=== PATIENT | male | born 1975 | race Caucasian/White ===

== ENCOUNTER 2017-09-01 12:20 | Inpatient (IN) | payer OTHER ==
[2017-09-01 13:59] VITALS: BMI 19.5
--- NOTE | 2017-09-01 18:45 | HP ---
CIWA Score - CIWA Score Nausea/Vomitin Muscle Tremors: 3 Anxiety: 4-Mod. Anxious/Guarded Agitation: 3 Paroxysmal Sweats: 1-Minimal Palms Moist Orientation: 0-Oriented Tacttile Disturbances: 0-None Auditory Disturbances: 0-None Visual Disturbances: 0-None Headache: 0-None Present CIWA-Ar Total Score: 13 Admission ROS BHS - HPI Chief Complaint: "I want help from alcohol" Allergies/Adverse Reactions: Allergies Allergy/AdvReac Type Severity Reaction Status Date / Time No Known Allergies Allergy Verified 09/01/17 16:39 History of Present Illness: Pt is a 42 yr old male with a long history of alcohol addiction. States he spiraled out of control in the last 3 wks following his mother's . This is pt's first experience with detox. Denies a hx of seizure. Denies any psychiatric nor medical hx. States he is sad because of his mother's but not suicidal. Denies prior or present suicidal ideation. Exam Limitations: No Limitations - Ebola screening Have you traveled outside of the country in the last 21 days: No (N) Have you had contact with anyone from an Ebola affected area: No Have you been sick,other than usual withdrawal symptoms: No Do you have a fever: No - Review of Systems Constitutional: Loss of Appetite, Unexplained wgt Loss EENT: reports: Other (R lazy eye) Respiratory: reports: Other (night time wheeze "because of smoking") Cardiac: reports: No Symptoms Reported GI: reports: Abdominal cramping (whenever "i dont drink") : reports: No Symptoms Reported Musculoskeletal: reports: Back Pain (work related) Integumentary: reports: No Symptoms Reported Neuro: reports: No Symptoms reported Endocrine: reports: No Symptoms Reported Hematology: reports: No Symptoms Reported Psychiatric: reports: Judgement Intact, Orientated x3, Agitated, Anxious, Depressed Other Systems: Reviewed and Negative Patient History - Patient Medical History Hx Anemia: No Hx Asthma: No Hx Chronic Obstructive Pulmonary Disease (COPD): No Hx Cancer: No Hx Cardiac Disorders: No Hx Congestive Heart Failure: No Hx Hypertension: No Hx Hypercholesterolemia: No Hx Pacemaker: No HX Cerebrovascular Accident: No Hx Seizures: No Hx Dementia: No Hx Diabetes: No Hx Gastrointestinal Disorders: No Hx Liver Disease: No Hx Genitourinary Disorders: No Hx Sexually Transmitted Disorders: No Hx Renal Disease (ESRD): No Hx Thyroid Disease: No Hx Human Immunodeficiency Virus (HIV): No (has never been tested; declines test) Hx Hepatitis C: No Hx Depression: No (about 3 wks) Hx Suicide Attempt: No Hx Bipolar Disorder: No Hx Schizophrenia: No - Patient Surgical History Past Surgical History: Yes Hx Appendectomy: Yes (20 yrs ago) - PPD History Previous Implant?: No PPD to be Administered?: Yes - Reproductive History Patient is a Female of Child Bearing Age (11 -55 yrs old): No - Smoking Cessation Smoking history: Current every day smoker Have you smoked in the past 12 months: Yes Aproximately how many cigarettes per day: 40 Hx Chewing Tobacco Use: No Initiated information on smoking cessation: Yes 'Breaking Loose' booklet given: 09/01/17 - Substance & Tx. History Hx Alcohol Use: Yes Hx Substance Use: Yes ( cocaine) - Substances Abused Alcohol Route: Oral Frequency: Daily Amount used: Beer - 2 (6) pks, Rum 2 pints Age of first use: 27 Date of Last Use: 09/01/17 Cocaine Route: Smoking Frequency: 1-2 times per week Amount used: $100-200 Age of first use: 18 Date of Last Use: 08/31/17 Marijuana/Hashish Route: Smoking Frequency: Daily Amount used: 2 blunts Age of first use: 15 Date of Last Use: 08/27/17 Family Disease History - Family Disease History Family Disease History: CA: Mother ( ; Breast Ca, COPD/emphysema), Other : Father (Drug use, ), Brother (Alcoholics and substance use) Admission Physical Exam [facility] - Vital Signs Vital Signs: Vital Signs - 24 hr 09/01/17 13:56 Temperature 97 F L Pulse Rate 90 Respiratory 20 Rate Blood Pressure 162/81 - Physical General Appearance: Yes: Moderate Distress, Anxious HEENTM: Yes: Within Normal Limits Respiratory: Yes: Lungs Clear, No Respiratory Distress, No Accessory Muscle Use Neck: Yes: Within Normal Limits, No masses,lesions,Nodules, Trachea in good position Breast: Yes: Breast Exam Deferred Cardiology: Yes: Regular Rate Genitourinary: Yes: Within Normal Limits Back: Yes: Normal Inspection Musculoskeletal: Yes: full range of Motion, Gait Steady Extremities: Yes: Normal Capillary Refill Neurological: Yes: Fully Oriented, Alert Integumentary: Yes: Other (flushed) Lymphatic: Yes: Within Normal Limits - Diagnostic (1) Alcohol dependence, uncomplicated Current Visit: Yes Status: Acute (2) Cocaine dependence, uncomplicated Current Visit: Yes Status: Chronic (3) Nicotine dependence, uncomplicated Current Visit: Yes Status: Chronic (4) Dehydration Current Visit: Yes Status: Suspected (5) Cannabis dependence, uncomplicated Current Visit: Yes Status: Acute (6) Depression Current Visit: Yes Status: Acute BHS Breath Alcohol Content Breath Alcohol Content: 0.142 Urine Drug Screen - Results Drug Screen Negative: No Urine Drug Screen Results: CATARINO-Cocaine
[2017-09-01] MEDS ORDERED: chlordiazePOXIDE HCL 25 MG CAPSULE PO PRN (19:04)
[2017-09-01] MEDS ORDERED: IBUPROFEN 400 MG TABLET (FP) PO PRN (19:04)
[2017-09-01] MEDS ORDERED: hydrOXYzine PAMOATE 50 MG CAPSULE (FP) PO PRN (19:04)
[2017-09-01] MEDS ORDERED: MAGNESIUM HYDROX 2400MG/30ML ORAL SUSPENSION 30 ML CUP PO PRN (19:04)
[2017-09-01] MEDS ORDERED: MAGNESIUM CITRATE 300 ML BOTTLE PO PRN (19:04)
[2017-09-01] MEDS ORDERED: NICOTINE POLACRILEX 4 MG GUM BUC PRN (19:04)
[2017-09-01] MEDS ORDERED: LOPERAMIDE HCL 2 MG CAPSULE PO PRN (19:04)
[2017-09-01] MEDS ORDERED: guaiFENesin/D-METHORPHAN HB 10 ML UNIT-DOSE CUPS PO PRN (19:04)
[2017-09-01] MEDS ORDERED: P-EPHED 60MG/TRIPROLIDI 2.5MG TABLET PO PRN (19:04)
[2017-09-01] MEDS ORDERED: MENTHOL/PHENOL 1 EACH UD MM PRN (19:04)
[2017-09-01] MEDS ORDERED: MAG HYDROX/AL HYDROX/SIMETH 30 ML UNIT-DOSE CUP PO PRN (19:04)
[2017-09-01] MEDS ORDERED: ACETAMINOPHEN 325 MG TABLET (FP) PO PRN (19:04)
[2017-09-01] MEDS: NICOTINE 21 MG/24 HOURS TOPICAL PATCH TD SCH (19:26)
[2017-09-01 21:07] LABS: URINE APPEARANCE CLEAR; URINE BILIRUBIN NEGATIVE (<2.0 mg/dL); URINE COLOR STRAW; URINE GLUCOSE (UA) NEGATIVE (NEGATIVE); URINE KETONE NEGATIVE (NEGATIVE); URINE LEUK ESTERASE NEGATIVE (NEGATIVE); URINE NITRITE NEGATIVE (NEGATIVE); URINE PROTEIN NEGATIVE (NEGATIVE); URINE UROBILINOGEN NEGATIVE mg/dL (0.2-1.0)
[2017-09-01] MEDS: chlordiazePOXIDE HCL 25 MG CAPSULE PO SCH (22:12)
[2017-09-01] MEDS: THIAMINE HCL 100 MG TABLET (FP) PO SCH (22:12)
[2017-09-01] MEDS: MELATONIN 5 MG TABLETS PO PRN (22:13)
[2017-09-02] MEDS: chlordiazePOXIDE HCL 25 MG CAPSULE PO SCH ×4 (05:33→22:25)
[2017-09-02 09:41] LABS: HEMATOCRIT 49.7 % (35.4-49); MCH 31.8 pg (25.7-33.7); MCHC 34.2 g/dl (32.0-35.9); MEAN CELL VOLUME 93.2 fl (80-96); MEAN PLT VOLUME 8.5 fl (7.5-11.1); PLATELET COUNT 261 K/MM3 (134-434); RBC 5.34 M/mm3 (4.00-5.60); WHITE BLOOD COUNT 6.6 K/mm3 (4.0-10.0)
[2017-09-02 09:56] LABS: CHLORIDE 102 mmol/L (98-107); POTASSIUM 4.6 mmol/L (3.5-5.1); SODIUM 138 mmol/L (136-145)
[2017-09-02 10:01] LABS: ALK PHOS 78 U/L (45-117); ANION GAP 2 (8-16); BILIRUBIN,TOTAL 1.6 mg/dL (0.2-1.0); BLOOD UREA NITROGEN 10 mg/dL (7-18); CALCIUM 8.9 mg/dL (8.5-10.1); CO2 34 mmol/L (21-32); CREATININE 0.8 mg/dL (0.7-1.3); GLUCOSE,RANDOM 74 mg/dL (74-106); SGOT/AST 19 U/L (15-37); SGPT/ALT 16 U/L (12-78); TOT PROT 7.6 g/dl (6.4-8.2)
[2017-09-02] MEDS: PRENATAL VITAMINS W/ FOLIC ACID TABLET (FP) PO SCH (10:08)
[2017-09-02] MEDS: NICOTINE 21 MG/24 HOURS TOPICAL PATCH TD SCH (10:09)
--- NOTE | 2017-09-02 10:47 | EKG ---
Test Reason : Blood Pressure : / mmHG Vent. Rate : 088 BPM Atrial Rate : 088 BPM P-R Int : 144 ms QRS Dur : 090 ms QT Int : 366 ms P-R-T Axes : 076 075 055 degrees QTc Int : 442 ms NORMAL SINUS RHYTHM RIGHT ATRIAL ENLARGEMENT VOLTAGE CRITERIA FOR LEFT VENTRICULAR HYPERTROPHY ABNORMAL ECG NO PREVIOUS ECGS AVAILABLE Confirmed by SHER PEREZ MD ([id number]) on 09/02/2017 10:46:45 AM Referred By: Confirmed By:SHER PEREZ MD
--- NOTE | 2017-09-02 11:09 | PN ---
[facility] CIWA - CIWA Score Nausea/Vomitin-No Nausea/No Vomiting Muscle Tremors: 4-Moderate,w/Arms Extend Anxiety: 4-Mod. Anxious/Guarded Agitation: 4-Moderately Restless Paroxysmal Sweats: 1-Minimal Palms Moist Orientation: 0-Oriented Tacttile Disturbances: 0-None Auditory Disturbances: 0-None Visual Disturbances: 0-None Headache: 0-None Present CIWA-Ar Total Score: 13 BHS Progress Note (SOAP) Subjective: ANXIETY,SLIGHT TREMORS, ALERT O X 3. OOB AMBULATING ON THE UNIT WITH STEADY GAIT. Objective: 09/02/17 11:09 Vital Signs Temperature 96.9 F L 09/02/17 09:22 Pulse Rate 80 09/02/17 09:22 Respiratory Rate 20 09/02/17 09:22 Blood Pressure 120/80 09/02/17 09:22 O2 Sat by Pulse Oximetry (%) Laboratory Tests 09/01/17 09/02/17 09/02/17 13:13 07:00 07:00 WBC 6.6 RBC 5.34 Hgb 17.0 H Hct 49.7 H MCV 93.2 MCH 31.8 MCHC 34.2 RDW 14.0 Plt Count 261 MPV 8.5 Sodium 138 Potassium 4.6 Chloride 102 Carbon Dioxide 34 H Anion Gap 2 L BUN 10 Creatinine 0.8 Creat Clearance w eGFR > 60 Random Glucose 74 Calcium 8.9 Total Bilirubin 1.6 H AST 19 ALT 16 Alkaline Phosphatase 78 Total Protein 7.6 Albumin 4.0 Urine Color Straw Urine Appearance Clear Urine pH 6.0 Ur Specific [place] 1.003 Urine Protein Negative Urine Glucose (UA) Negative Urine Ketones Negative Urine Blood 1+ H Urine Nitrite Negative Urine Bilirubin Negative Urine Urobilinogen Negative Ur Leukocyte Esterase Negative Urine WBC (Auto) None Urine RBC (Auto) <1 RPR Titer 09/02/17 07:00 WBC RBC Hgb Hct MCV MCH MCHC RDW Plt Count MPV Sodium Potassium Chloride Carbon Dioxide Anion Gap BUN Creatinine Creat Clearance w eGFR Random Glucose Calcium Total Bilirubin AST ALT Alkaline Phosphatase Total Protein Albumin Urine Color Urine Appearance Urine pH Ur Specific [place] Urine Protein Urine Glucose (UA) Urine Ketones Urine Blood Urine Nitrite Urine Bilirubin Urine Urobilinogen Ur Leukocyte Esterase Urine WBC (Auto) Urine RBC (Auto) RPR Titer Nonreactive Assessment: 09/02/17 11:09 WITHDRAWAL SX Plan: CONTINUE DETOX
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
[2017-09-02] MEDS: MELATONIN 5 MG TABLETS PO PRN (22:24)
[2017-09-02] MEDS: THIAMINE HCL 100 MG TABLET (FP) PO SCH (22:25)
[2017-09-03] MEDS: chlordiazePOXIDE HCL 25 MG CAPSULE PO SCH ×3 (05:41→16:41)
[2017-09-03] MEDS: NICOTINE 21 MG/24 HOURS TOPICAL PATCH TD SCH (10:02)
[2017-09-03] MEDS: PRENATAL VITAMINS W/ FOLIC ACID TABLET (FP) PO SCH (10:02)
--- NOTE | 2017-09-03 15:19 | PN ---
S CIWA - CIWA Score Nausea/Vomitin-No Nausea/No Vomiting Muscle Tremors: 3 Anxiety: 4-Mod. Anxious/Guarded Agitation: 4-Moderately Restless Paroxysmal Sweats: 1-Minimal Palms Moist Orientation: 0-Oriented Tacttile Disturbances: 0-None Auditory Disturbances: 0-None Visual Disturbances: 0-None Headache: 0-None Present CIWA-Ar Total Score: 12 BHS Progress Note (SOAP) Subjective: ANXIETY,IRRITABILITY,SWEATS. PT EAGER TO PLAN FOR REHAB AFTERCARE. Objective: 09/03/17 15:17 Vital Signs Temperature 96.8 F L 09/03/17 14:02 Pulse Rate 64 09/03/17 14:02 Respiratory Rate 18 09/03/17 14:02 Blood Pressure 138/74 09/03/17 14:02 O2 Sat by Pulse Oximetry (%) Laboratory Tests 09/01/17 09/02/17 09/02/17 13:13 07:00 07:00 WBC 6.6 RBC 5.34 Hgb 17.0 H Hct 49.7 H MCV 93.2 MCH 31.8 MCHC 34.2 RDW 14.0 Plt Count 261 MPV 8.5 Sodium 138 Potassium 4.6 Chloride 102 Carbon Dioxide 34 H Anion Gap 2 L BUN 10 Creatinine 0.8 Creat Clearance w eGFR > 60 Random Glucose 74 Calcium 8.9 Total Bilirubin 1.6 H AST 19 ALT 16 Alkaline Phosphatase 78 Total Protein 7.6 Albumin 4.0 Urine Color Straw Urine Appearance Clear Urine pH 6.0 Ur Specific [place] 1.003 Urine Protein Negative Urine Glucose (UA) Negative Urine Ketones Negative Urine Blood 1+ H Urine Nitrite Negative Urine Bilirubin Negative Urine Urobilinogen Negative Ur Leukocyte Esterase Negative Urine WBC (Auto) None Urine RBC (Auto) <1 RPR Titer 09/02/17 07:00 WBC RBC Hgb Hct MCV MCH MCHC RDW Plt Count MPV Sodium Potassium Chloride Carbon Dioxide Anion Gap BUN Creatinine Creat Clearance w eGFR Random Glucose Calcium Total Bilirubin AST ALT Alkaline Phosphatase Total Protein Albumin Urine Color Urine Appearance Urine pH Ur Specific [place] Urine Protein Urine Glucose (UA) Urine Ketones Urine Blood Urine Nitrite Urine Bilirubin Urine Urobilinogen Ur Leukocyte Esterase Urine WBC (Auto) Urine RBC (Auto) RPR Titer Nonreactive Assessment: 09/03/17 15:17 WITHDRAWAL SX Plan: CONTINUE DETOX PT TO BE SEEN BY COUNSELOR TODAY
[2017-09-03] MEDS: chlordiazePOXIDE 5 MG CAPSULE PO SCH (22:30)
[2017-09-03] MEDS: THIAMINE HCL 100 MG TABLET (FP) PO SCH (22:30)
[2017-09-03] MEDS: ZOLPIDEM TARTRATE 10 MG TABLET (PARK CARE ONLY) PO PRN (22:30)
[2017-09-04] MEDS: chlordiazePOXIDE 5 MG CAPSULE PO SCH ×3 (05:26→17:28)
[2017-09-04] MEDS: PRENATAL VITAMINS W/ FOLIC ACID TABLET (FP) PO SCH (10:09)
[2017-09-04] MEDS: NICOTINE 21 MG/24 HOURS TOPICAL PATCH TD SCH (10:09)
--- NOTE | 2017-09-04 11:36 | PN ---
S Progress Note (SOAP) Subjective: ANXIETY-SLIGHT PANIC MODE,IRRITABILITY,CONCERNED ABOUT AFTERCARE. REASSURED PT A COUNSELOR WILL SEE HIM TO SET UP AFTERCARE. Objective: 09/04/17 11:35 Vital Signs Temperature 97 F L 09/04/17 09:05 Pulse Rate 76 09/04/17 09:05 Respiratory Rate 20 09/04/17 09:05 Blood Pressure 118/68 09/04/17 09:05 O2 Sat by Pulse Oximetry (%) Laboratory Last Values WBC 6.6 K/mm3 (4.0-10.0) 09/02/17 07:00 RBC 5.34 M/mm3 (4.00-5.60) 09/02/17 07:00 Hgb 17.0 GM/dL (11.7-16.9) H 09/02/17 07:00 Hct 49.7 % (35.4-49) H 09/02/17 07:00 MCV 93.2 fl (80-96) 09/02/17 07:00 MCH 31.8 pg (25.7-33.7) 09/02/17 07:00 MCHC 34.2 g/dl (32.0-35.9) 09/02/17 07:00 RDW 14.0 % (11.9-15.9) 09/02/17 07:00 Plt Count 261 K/MM3 (134-434) 09/02/17 07:00 MPV 8.5 fl (7.5-11.1) 09/02/17 07:00 Sodium 138 mmol/L (136-145) 09/02/17 07:00 Potassium 4.6 mmol/L (3.5-5.1) 09/02/17 07:00 Chloride 102 mmol/L (98-107) 09/02/17 07:00 Carbon Dioxide 34 mmol/L (21-32) H 09/02/17 07:00 Anion Gap 2 (8-16) L 09/02/17 07:00 BUN 10 mg/dL (7-18) 09/02/17 07:00 Creatinine 0.8 mg/dL (0.7-1.3) 09/02/17 07:00 Creat Clearance w eGFR > 60 (>60) 09/02/17 07:00 Random Glucose 74 mg/dL (74-106) 09/02/17 07:00 Calcium 8.9 mg/dL (8.5-10.1) 09/02/17 07:00 Total Bilirubin 1.6 mg/dL (0.2-1.0) H 09/02/17 07:00 AST 19 U/L (15-37) 09/02/17 07:00 ALT 16 U/L (12-78) 09/02/17 07:00 Alkaline Phosphatase 78 U/L (45-117) 09/02/17 07:00 Total Protein 7.6 g/dl (6.4-8.2) 09/02/17 07:00 Albumin 4.0 g/dl (3.4-5.0) 09/02/17 07:00 Urine Color Straw 09/01/17 13:13 Urine Appearance Clear 09/01/17 13:13 Urine pH 6.0 (5.0-8.0) 09/01/17 13:13 Ur Specific [place] 1.003 (1.001-1.035) 09/01/17 13:13 Urine Protein Negative (NEGATIVE) 09/01/17 13:13 Urine Glucose (UA) Negative (NEGATIVE) 09/01/17 13:13 Urine Ketones Negative (NEGATIVE) 09/01/17 13:13 Urine Blood 1+ (NEGATIVE) H 09/01/17 13:13 Urine Nitrite Negative (NEGATIVE) 09/01/17 13:13 Urine Bilirubin Negative (<2.0 mg/dL) 09/01/17 13:13 Urine Urobilinogen Negative mg/dL (0.2-1.0) 09/01/17 13:13 Ur Leukocyte Esterase Negative (NEGATIVE) 09/01/17 13:13 Urine WBC (Auto) None /hpf (3-5) 09/01/17 13:13 Urine RBC (Auto) <1 /hpf (0-3) 09/01/17 13:13 RPR Titer Nonreactive (NONREACTIVE) 09/02/17 07:00 Assessment: 09/04/17 11:36 WITHDRAWAL SX Plan: CONTINUE DETOX F/U WITH COUNSELOR TODAY.
[2017-09-04] MEDS: chlordiazePOXIDE HCL 10 MG CAPSULE PO SCH (22:33)
[2017-09-04] MEDS: ZOLPIDEM TARTRATE 10 MG TABLET (PARK CARE ONLY) PO PRN (22:33)
[2017-09-04] MEDS: THIAMINE HCL 100 MG TABLET (FP) PO SCH (22:33)
[2017-09-05] MEDS: chlordiazePOXIDE HCL 10 MG CAPSULE PO SCH (06:46)
[2017-09-05 09:22] VITALS: BP 116/82; PULSE 74; TEMP 98.4
--- NOTE | 2017-09-05 09:34 | PN ---
[facility] Progress Note (SOAP) Subjective: DETOX COMPLETED. ALERT O X 3. NAD. PT REPORTS HIS RECEIVES PRIMARY CARE AT [facility] NEEDED. PT MET WITH COUNSELOR DESTINEY LOYD THIS MORNING TO ADDRESS AFTERCARE FOLLOW UP. Objective: 09/05/17 09:32 Vital Signs Temperature 98.4 F 09/05/17 09:21 Pulse Rate 74 09/05/17 09:21 Respiratory Rate 16 09/05/17 09:21 Blood Pressure 116/82 09/05/17 09:21 O2 Sat by Pulse Oximetry (%) Laboratory Last Values WBC 6.6 K/mm3 (4.0-10.0) 09/02/17 07:00 RBC 5.34 M/mm3 (4.00-5.60) 09/02/17 07:00 Hgb 17.0 GM/dL (11.7-16.9) H 09/02/17 07:00 Hct 49.7 % (35.4-49) H 09/02/17 07:00 MCV 93.2 fl (80-96) 09/02/17 07:00 MCH 31.8 pg (25.7-33.7) 09/02/17 07:00 MCHC 34.2 g/dl (32.0-35.9) 09/02/17 07:00 RDW 14.0 % (11.9-15.9) 09/02/17 07:00 Plt Count 261 K/MM3 (134-434) 09/02/17 07:00 MPV 8.5 fl (7.5-11.1) 09/02/17 07:00 Sodium 138 mmol/L (136-145) 09/02/17 07:00 Potassium 4.6 mmol/L (3.5-5.1) 09/02/17 07:00 Chloride 102 mmol/L (98-107) 09/02/17 07:00 Carbon Dioxide 34 mmol/L (21-32) H 09/02/17 07:00 Anion Gap 2 (8-16) L 09/02/17 07:00 BUN 10 mg/dL (7-18) 09/02/17 07:00 Creatinine 0.8 mg/dL (0.7-1.3) 09/02/17 07:00 Creat Clearance w eGFR > 60 (>60) 09/02/17 07:00 Random Glucose 74 mg/dL (74-106) 09/02/17 07:00 Calcium 8.9 mg/dL (8.5-10.1) 09/02/17 07:00 Total Bilirubin 1.6 mg/dL (0.2-1.0) H 09/02/17 07:00 AST 19 U/L (15-37) 09/02/17 07:00 ALT 16 U/L (12-78) 09/02/17 07:00 Alkaline Phosphatase 78 U/L (45-117) 09/02/17 07:00 Total Protein 7.6 g/dl (6.4-8.2) 09/02/17 07:00 Albumin 4.0 g/dl (3.4-5.0) 09/02/17 07:00 Urine Color Straw 09/01/17 13:13 Urine Appearance Clear 09/01/17 13:13 Urine pH 6.0 (5.0-8.0) 09/01/17 13:13 Ur Specific [place] 1.003 (1.001-1.035) 09/01/17 13:13 Urine Protein Negative (NEGATIVE) 09/01/17 13:13 Urine Glucose (UA) Negative (NEGATIVE) 09/01/17 13:13 Urine Ketones Negative (NEGATIVE) 09/01/17 13:13 Urine Blood 1+ (NEGATIVE) H 09/01/17 13:13 Urine Nitrite Negative (NEGATIVE) 09/01/17 13:13 Urine Bilirubin Negative (<2.0 mg/dL) 09/01/17 13:13 Urine Urobilinogen Negative mg/dL (0.2-1.0) 09/01/17 13:13 Ur Leukocyte Esterase Negative (NEGATIVE) 09/01/17 13:13 Urine WBC (Auto) None /hpf (3-5) 09/01/17 13:13 Urine RBC (Auto) <1 /hpf (0-3) 09/01/17 13:13 RPR Titer Nonreactive (NONREACTIVE) 09/02/17 07:00 Assessment: 09/05/17 09:32 MEDICALLY STABLE Plan: D/C PT TODAY F/U WITH AFTERCARE SCHEDULED.
--- NOTE | 2017-09-05 11:17 | DS ---
[facility] Detox Discharge Summary Admission Date: 09/01/17 Discharge Date: 09/05/17 - History Present History: Alcohol Dependence, Cannabis Dependence, Cocaine Dependence Additional Comments: DETOX COMPLETED. ALERT O X 3. NAD. PT STATES USE OF [facility] FOR HIS PRIMARY CARE/PMD DR. BRENNAN NEEDED. PT MET WITH COUNSELOR DESTINEY LOYD THIS MORNING FOR AFTERCARE PLANS. Pertinent Past History: PLEASE SEE DX BELOW - Physical Exam Results Vital Signs: Vital Signs Temperature 98.4 F 09/05/17 09:21 Pulse Rate 74 09/05/17 09:21 Respiratory Rate 16 09/05/17 09:21 Blood Pressure 116/82 09/05/17 09:21 O2 Sat by Pulse Oximetry (%) Pertinent Admission Physical Exam Findings: WITHDRAWAL SX Laboratory Tests 09/01/17 09/02/17 09/02/17 13:13 07:00 07:00 WBC 6.6 RBC 5.34 Hgb 17.0 H Hct 49.7 H MCV 93.2 MCH 31.8 MCHC 34.2 RDW 14.0 Plt Count 261 MPV 8.5 Sodium 138 Potassium 4.6 Chloride 102 Carbon Dioxide 34 H Anion Gap 2 L BUN 10 Creatinine 0.8 Creat Clearance w eGFR > 60 Random Glucose 74 Calcium 8.9 Total Bilirubin 1.6 H AST 19 ALT 16 Alkaline Phosphatase 78 Total Protein 7.6 Albumin 4.0 Urine Color Straw Urine Appearance Clear Urine pH 6.0 Ur Specific [place] 1.003 Urine Protein Negative Urine Glucose (UA) Negative Urine Ketones Negative Urine Blood 1+ H Urine Nitrite Negative Urine Bilirubin Negative Urine Urobilinogen Negative Ur Leukocyte Esterase Negative Urine WBC (Auto) None Urine RBC (Auto) <1 RPR Titer 09/02/17 07:00 WBC RBC Hgb Hct MCV MCH MCHC RDW Plt Count MPV Sodium Potassium Chloride Carbon Dioxide Anion Gap BUN Creatinine Creat Clearance w eGFR Random Glucose Calcium Total Bilirubin AST ALT Alkaline Phosphatase Total Protein Albumin Urine Color Urine Appearance Urine pH Ur Specific [place] Urine Protein Urine Glucose (UA) Urine Ketones Urine Blood Urine Nitrite Urine Bilirubin Urine Urobilinogen Ur Leukocyte Esterase Urine WBC (Auto) Urine RBC (Auto) RPR Titer Nonreactive - Treatment Hospital Course: Detox Protocol Followed, Detoxed Safely, Responded well, Discharged Condition Good, Rehab Referral Accepted Patient has Accepted a Rehab Referral to: [facility] - Medication Discharge Medications: Ambulatory Orders NK [No Known Home Medication] 09/01/17 - Diagnosis (1) Alcohol dependence, uncomplicated Status: Acute (2) Cannabis dependence, uncomplicated Status: Acute (3) Cocaine dependence, uncomplicated Status: Acute (4) Nicotine dependence, uncomplicated Status: Chronic Qualifiers: Nicotine product type: cigarettes Qualified Code(s): F17.210 - Nicotine dependence, cigarettes, uncomplicated (5) Dehydration Status: Acute - AMA Did Patient Leave Against Medical Advice: No
== END 2017-09-05 10:29 | disposition home or self-care (01) | DRG 774 ==
LOC: YASAS 12:20 → Y3N 16:42
PROVIDERS: ADMIT Internal Medicine; ATTEND Internal Medicine
PROC: HZ2ZZZZ Detoxification Services for Substance Abuse Treatment (ICD-10-PCS; principal; 2017-09-01)
DX: F10.230 Alcohol dependence with withdrawal, uncomplicated (principal); F14.20 Cocaine dependence, uncomplicated; F12.20 Cannabis dependence, uncomplicated; F17.210 Nicotine dependence, cigarettes, uncomplicated; F32.9 Major depressive disorder, single episode, unspecified; E86.0 Dehydration; G47.00 Insomnia, unspecified; Z63.4 Disappearance and death of family member
CPT/HCPCS: 36415; 80053; 81003; 81015; 85027; 86593; 93005; 93010

== ENCOUNTER 2018-03-09 20:08 | Inpatient (IN) | payer OTHER ==
[2018-03-09] MEDS ORDERED: MELATONIN 5 MG TABLETS PO PRN (22:00)
--- NOTE | 2018-03-09 22:28 | HP ---
CIWA Score Nausea/Vomitin-No Nausea/No Vomiting Muscle Tremors: 4-Moderate,w/Arms Extend Anxiety: 3 Agitation: 3 Paroxysmal Sweats: 1-Minimal Palms Moist Orientation: 1-Uncertain about Date Tacttile Disturbances: 0-None Auditory Disturbances: 0-None Visual Disturbances: 0-None Headache: 3-Moderate CIWA-Ar Total Score: 15 - Admission Criteria OASAS Guidelines: Admission for Medically Managed Detox: Requires at least one of the followin. CIWA greater than 12 2. Seizures within the past 24 hours 3. Delirium tremens within the past 24 hours 4. Hallucinations within the past 24 hours 5. Acute intervention needed for co occurring medical disorder 6. Acute intervention needed for co occurring psychiatric disorder 7. Severe withdrawal that cannot be handled at a lower level of care (continued vomiting, continued diarrhea, abnormal vital signs) requiring intravenous medication and/or fluids 8. Admission ROS S - [facility] Chief Complaint: Alcohol withdrawal symptoms Allergies/Adverse Reactions: Allergies Allergy/AdvReac Type Severity Reaction Status Date / Time No Known Allergies Allergy Verified 03/09/18 21:50 History of Present Illness: 42 years old male with a long history of alcohol dependence is seeking admission to detox. Patient has been in detox multiple times and reports insignificant period of sobriety (3 weeks). He has medical history of depression and denies suicidal ideation at this time Exam Limitations: No Limitations - Ebola screening Have you traveled outside of the country in the last 21 days: No Have you had contact with anyone from an Ebola affected area: No Have you been sick,other than usual withdrawal symptoms: No Do you have a fever: No - Review of Systems Constitutional: Chills, Malaise, Weakness EENT: reports: No Symptoms Reported Respiratory: reports: No Symptoms reported Cardiac: reports: No Symptoms Reported GI: reports: Poor Appetite, Poor Fluid Intake, Abdominal cramping : reports: No Symptoms Reported Integumentary: reports: Dryness Neuro: reports: Tremors Endocrine: reports: No Symptoms Reported Hematology: reports: No Symptoms Reported Psychiatric: reports: Depressed Other Systems: Reviewed and Negative Patient History - Patient Medical History Hx Anemia: No Hx Asthma: No Hx Chronic Obstructive Pulmonary Disease (COPD): No Hx Cancer: No Hx Cardiac Disorders: No Hx Congestive Heart Failure: No Hx Hypertension: No Hx Hypercholesterolemia: No Hx Pacemaker: No HX Cerebrovascular Accident: No Hx Seizures: No Hx Dementia: No Hx Diabetes: No Hx Gastrointestinal Disorders: No Hx Liver Disease: No Hx Genitourinary Disorders: No Hx Sexually Transmitted Disorders: No Hx Renal Disease (ESRD): No Hx Thyroid Disease: No Hx Human Immunodeficiency Virus (HIV): No Hx Hepatitis C: No Hx Depression: Yes (Not on medication) Hx Suicide Attempt: No (Denies suicidal iodeation at this time) Hx Bipolar Disorder: No Hx Schizophrenia: No - Patient Surgical History Past Surgical History: Yes Hx Neurologic Surgery: No Hx Cataract Extraction: No Hx Cardiac Surgery: No Hx Lung Surgery: No Hx Breast Surgery: No Hx Breast Biopsy: No Hx Abdominal Surgery: No Hx Appendectomy: Yes (20 yrs ago) Hx Cholecystectomy: No Hx Genitourinary Surgery: No Hx Section: No Hx Orthopedic Surgery: No Anesthesia Reaction: No - PPD History Previous Implant?: Yes Documented Results: Negative w/proof Date: 09/03/17 Results: 0mm PPD to be Administered?: No - Reproductive History Patient is a Female of Child Bearing Age (11 -55 yrs old): No (Male) - Smoking Cessation Smoking history: Current every day smoker Have you smoked in the past 12 months: Yes Aproximately how many cigarettes per day: 40 Cigars Per Day: 0 Hx Chewing Tobacco Use: No Initiated information on smoking cessation: Yes 'Breaking Loose' booklet given: 03/09/18 - Substance & Tx. History Hx Alcohol Use: Yes Hx Substance Use: Yes Substance Use Type: Alcohol, Cocaine Hx Substance Use Treatment: Yes ([facility]) - Substances Abused Alcohol Route: Oral Frequency: Daily Amount used: BEER- 1 CASE Age of first use: 27 Date of Last Use: 03/09/18 Family Disease History - Family Disease History Family Disease History: CA: Mother ( ; Breast Ca, COPD/emphysema), Other : Father (Drug use, ), Brother (Alcoholics and substance use) Admission Physical Exam [facility] - Vital Signs Vital Signs: Vital Signs - 24 hr 03/09/18 21:46 Temperature 96.8 F L Pulse Rate 133 H Respiratory 139 H Rate Blood Pressure 139/92 - Physical General Appearance: Yes: Moderate Distress, Tremorous, Anxious HEENTM: Yes: Within Normal Limits Respiratory: Yes: Lungs Clear, Normal Breath Sounds, No Respiratory Distress Neck: Yes: Supple Breast: Yes: Breast Exam Deferred Cardiology: Yes: Tachycardia Abdominal: Yes: Normal Bowel Sounds, Soft Genitourinary: Yes: Within Normal Limits Back: Yes: CVA Tenderness (L) Musculoskeletal: Yes: Back pain (lower) Extremities: Yes: Tremors Neurological: Yes: Alert, Normal Mood/Affect Integumentary: Yes: Warm Lymphatic: Yes: Within Normal Limits - Diagnostic (1) Alcohol dependence with uncomplicated withdrawal Current Visit: Yes Status: Acute (2) Cannabis dependence, uncomplicated Current Visit: Yes Status: Chronic (3) Cocaine dependence, uncomplicated Current Visit: Yes Status: Chronic (4) Nicotine dependence, uncomplicated Current Visit: Yes Status: Chronic Qualifiers: Nicotine product type: cigarettes Qualified Code(s): F17.210 - Nicotine dependence, cigarettes, uncomplicated (5) Depression Current Visit: Yes Status: Chronic Qualifiers: Depression Type: unspecified Qualified Code(s): F32.9 - Major depressive disorder, single episode, unspecified Cleared for Admission [facility] - Detox or Rehab [facility] Level of Care: Medically Managed Detox Regimen/Protocol: Librium S Breath Alcohol Content Breath Alcohol Content: 0.137 Urine Drug Screen - Results Drug Screen Negative: No Urine Drug Screen Results: CATARINO-Cocaine, BZO-Benzodiazepines
[2018-03-09] MEDS ORDERED: ACETAMINOPHEN 325 MG TABLET (FP) PO PRN (22:35)
[2018-03-09] MEDS ORDERED: chlordiazePOXIDE HCL 25 MG CAPSULE PO PRN (22:35)
[2018-03-09] MEDS ORDERED: MENTHOL/PHENOL 1 EACH UD MM PRN (22:35)
[2018-03-09] MEDS ORDERED: LOPERAMIDE HCL 2 MG CAPSULE PO PRN (22:35)
[2018-03-09] MEDS ORDERED: IBUPROFEN 400 MG TABLET (FP) PO PRN (22:35)
[2018-03-09] MEDS ORDERED: MAGNESIUM CITRATE 300 ML BOTTLE PO PRN (22:35)
[2018-03-09] MEDS ORDERED: MAGNESIUM HYDROX 2400MG/30ML ORAL SUSPENSION 30 ML CUP PO PRN (22:35)
[2018-03-09] MEDS ORDERED: guaiFENesin/D-METHORPHAN HB 10 ML UNIT-DOSE CUPS PO PRN (22:35)
[2018-03-09] MEDS ORDERED: MAG HYDROX/AL HYDROX/SIMETH 30 ML UNIT-DOSE CUP PO PRN (22:35)
[2018-03-09] MEDS ORDERED: P-EPHED 60MG/TRIPROLIDI 2.5MG TABLET PO PRN (22:35)
[2018-03-10] MEDS: chlordiazePOXIDE HCL 25 MG CAPSULE PO SCH ×5 (00:06→22:41)
[2018-03-10] MEDS: PRENATAL VITAMINS W/ FOLIC ACID TABLET (FP) PO SCH (10:10)
[2018-03-10] MEDS: NICOTINE 14 MG/24 HOURS TOPICAL PATCH TD SCH (10:10)
[2018-03-10 10:21] LABS: HEMATOCRIT 46.1 % (35.4-49); HEMOGLOBIN 15.2 GM/dL (11.7-16.9); MCH 30.9 pg (25.7-33.7); MEAN CELL VOLUME 93.4 fl (80-96); MEAN PLT VOLUME 8.2 fl (7.5-11.1); PLATELET COUNT 190 K/MM3 (134-434); RBC 4.93 M/mm3 (4.00-5.60); RDW 14.5 % (11.9-15.9); WHITE BLOOD COUNT 6.4 K/mm3 (4.0-10.0)
[2018-03-10 10:39] LABS: ALK PHOS 76 U/L (45-117); ANION GAP 9 MMOL/L (8-16); BILIRUBIN,TOTAL 0.3 mg/dL (0.2-1); BLOOD UREA NITROGEN 10 mg/dL (7-18); CALCIUM 8.2 mg/dL (8.5-10.1); CHLORIDE 107 mmol/L (98-107); CO2 25 mmol/L (21-32); CREATININE 0.7 mg/dL (0.55-1.3); GLUCOSE,RANDOM 70 mg/dL (74-106); POTASSIUM 3.8 mmol/L (3.5-5.1); SGOT/AST 43 U/L (15-37); SGPT/ALT 77 U/L (13-61); SODIUM 141 mmol/L (136-145); TOT PROT 7.2 g/dl (6.4-8.2)
--- NOTE | 2018-03-10 10:51 | EKG ---
Test Reason : Blood Pressure : / mmHG Vent. Rate : 099 BPM Atrial Rate : 099 BPM P-R Int : 164 ms QRS Dur : 092 ms QT Int : 354 ms P-R-T Axes : 072 073 063 degrees QTc Int : 454 ms NORMAL SINUS RHYTHM VOLTAGE CRITERIA FOR LEFT VENTRICULAR HYPERTROPHY ABNORMAL ECG WHEN COMPARED WITH ECG OF 14-OCT-2017 06:23, VENT. RATE HAS INCREASED BY 36 BPM Confirmed by GEORGE MCKEON MD ([id number]) on 03/10/2018 10:50:56 AM Referred By: Confirmed By:GEORGE MCKEON MD
[2018-03-10 14:20] LABS: URINE APPEARANCE CLEAR; URINE BILIRUBIN NEGATIVE (<2.0 mg/dL); URINE COLOR YELLOW; URINE GLUCOSE (UA) NEGATIVE (NEGATIVE); URINE KETONE NEGATIVE (NEGATIVE); URINE LEUK ESTERASE NEGATIVE (NEGATIVE); URINE NITRITE NEGATIVE (NEGATIVE); URINE PROTEIN NEGATIVE (NEGATIVE); URINE UROBILINOGEN NEGATIVE mg/dL (0.2-1.0)
[2018-03-10 14:38] LABS: URINE HYALINE CAST 4 /lpf; URINE MUCUS RARE
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
--- NOTE | 2018-03-10 17:52 | PN ---
[facility] CIWA - CIWA Score Nausea/Vomitin-Mild Nausea/No Vomiting Muscle Tremors: 3 Anxiety: 2 Agitation: 1-Slight > Activity Paroxysmal Sweats: 3 Orientation: 0-Oriented Tacttile Disturbances: 0-None Auditory Disturbances: 0-None Visual Disturbances: 0-None Headache: 0-None Present CIWA-Ar Total Score: 10 S Progress Note (SOAP) Subjective: shakes sweats tremors Objective: 03/10/18 17:50 A & O x 3 In day room no acute distress Laboratory Last Values WBC 6.4 K/mm3 (4.0-10.0) 03/10/18 07:00 RBC 4.93 M/mm3 (4.00-5.60) 03/10/18 07:00 Hgb 15.2 GM/dL (11.7-16.9) 03/10/18 07:00 Hct 46.1 % (35.4-49) 03/10/18 07:00 MCV 93.4 fl (80-96) 03/10/18 07:00 MCH 30.9 pg (25.7-33.7) 03/10/18 07:00 MCHC 33.0 g/dl (32.0-35.9) 03/10/18 07:00 RDW 14.5 % (11.9-15.9) 03/10/18 07:00 Plt Count 190 K/MM3 (134-434) D 03/10/18 07:00 MPV 8.2 fl (7.5-11.1) 03/10/18 07:00 Sodium 141 mmol/L (136-145) 03/10/18 07:00 Potassium 3.8 mmol/L (3.5-5.1) 03/10/18 07:00 Chloride 107 mmol/L (98-107) 03/10/18 07:00 Carbon Dioxide 25 mmol/L (21-32) 03/10/18 07:00 Anion Gap 9 MMOL/L (8-16) 03/10/18 07:00 BUN 10 mg/dL (7-18) 03/10/18 07:00 Creatinine 0.7 mg/dL (0.55-1.3) 03/10/18 07:00 Creat Clearance w eGFR > 60 (>60) 03/10/18 07:00 Random Glucose 70 mg/dL (74-106) L 03/10/18 07:00 Calcium 8.2 mg/dL (8.5-10.1) L 03/10/18 07:00 Total Bilirubin 0.3 mg/dL (0.2-1) 03/10/18 07:00 AST 43 U/L (15-37) H 03/10/18 07:00 ALT 77 U/L (13-61) H 03/10/18 07:00 Alkaline Phosphatase 76 U/L (45-117) 03/10/18 07:00 Total Protein 7.2 g/dl (6.4-8.2) 03/10/18 07:00 Albumin 4.0 g/dl (3.4-5.0) 03/10/18 07:00 Urine Color Yellow 03/10/18 10:30 Urine Appearance Clear 03/10/18 10:30 Urine pH 5.0 (5.0-8.0) 03/10/18 10:30 Ur Specific [place] 1.016 (1.010-1.035) 03/10/18 10:30 Urine Protein Negative (NEGATIVE) 03/10/18 10:30 Urine Glucose (UA) Negative (NEGATIVE) 03/10/18 10:30 Urine Ketones Negative (NEGATIVE) 03/10/18 10:30 Urine Blood 1+ (NEGATIVE) H 03/10/18 10:30 Urine Nitrite Negative (NEGATIVE) 03/10/18 10:30 Urine Bilirubin Negative (<2.0 mg/dL) 03/10/18 10:30 Urine Urobilinogen Negative mg/dL (0.2-1.0) 03/10/18 10:30 Ur Leukocyte Esterase Negative (NEGATIVE) 03/10/18 10:30 Urine WBC (Auto) 1 /hpf (3-5) 03/10/18 10:30 Urine RBC (Auto) 1 /hpf (0-3) 03/10/18 10:30 Hyaline Casts 4 /lpf 03/10/18 10:30 Urine Mucus Rare 03/10/18 10:30 RPR Titer Nonreactive (NONREACTIVE) 03/10/18 07:00 labs noted Assessment: 03/10/18 17:50 withdrawal sx abnormal urine results Plan: continue detox increase hydration
[2018-03-10] MEDS: THIAMINE HCL 100 MG TABLET (FP) PO SCH (22:41)
[2018-03-11] MEDS: chlordiazePOXIDE HCL 25 MG CAPSULE PO SCH ×3 (06:18→17:33)
[2018-03-11] MEDS: NICOTINE POLACRILEX 2 MG GUM BC PRN (06:27)
[2018-03-11] MEDS: NICOTINE 14 MG/24 HOURS TOPICAL PATCH TD SCH (10:16)
[2018-03-11] MEDS: PRENATAL VITAMINS W/ FOLIC ACID TABLET (FP) PO SCH (10:16)
--- NOTE | 2018-03-11 13:02 | DS ---
[facility] Detox Discharge Summary Admission Date: 03/09/18 Discharge Date: 03/11/18 - History Present History: Alcohol Dependence, Cannabis Dependence, Cocaine Dependence Additional Comments: Patient decided to leave AMA stating he has a cat and dog at home and they haven 't been fed for 3 days. Patient instructed to call 911 if feeling sick or any withdrawal symptoms and to see his PCP within 3 days. Pertinent Past History: Alcohol dependence Cannabis dependence Cocaine dependence Nicotine dependence Depression - Physical Exam Results Vital Signs: Vital Signs Temperature 96.8 F L 03/11/18 09:37 Pulse Rate 91 H 03/11/18 09:37 Respiratory Rate 18 03/11/18 09:37 Blood Pressure 121/84 03/11/18 09:37 O2 Sat by Pulse Oximetry (%) Pertinent Admission Physical Exam Findings: Withdrawal symptoms Laboratory Tests 03/10/18 03/10/18 03/10/18 07:00 07:00 07:00 WBC 6.4 RBC 4.93 Hgb 15.2 Hct 46.1 MCV 93.4 MCH 30.9 MCHC 33.0 RDW 14.5 Plt Count 190 D MPV 8.2 Sodium 141 Potassium 3.8 Chloride 107 Carbon Dioxide 25 Anion Gap 9 BUN 10 Creatinine 0.7 Creat Clearance w eGFR > 60 Random Glucose 70 L Calcium 8.2 L Total Bilirubin 0.3 AST 43 H ALT 77 H Alkaline Phosphatase 76 Total Protein 7.2 Albumin 4.0 Urine Color Urine Appearance Urine pH Ur Specific [place] Urine Protein Urine Glucose (UA) Urine Ketones Urine Blood Urine Nitrite Urine Bilirubin Urine Urobilinogen Ur Leukocyte Esterase Urine WBC (Auto) Urine RBC (Auto) Hyaline Casts Urine Mucus RPR Titer Nonreactive 03/10/18 10:30 WBC RBC Hgb Hct MCV MCH MCHC RDW Plt Count MPV Sodium Potassium Chloride Carbon Dioxide Anion Gap BUN Creatinine Creat Clearance w eGFR Random Glucose Calcium Total Bilirubin AST ALT Alkaline Phosphatase Total Protein Albumin Urine Color Yellow Urine Appearance Clear Urine pH 5.0 Ur Specific [place] 1.016 Urine Protein Negative Urine Glucose (UA) Negative Urine Ketones Negative Urine Blood 1+ H Urine Nitrite Negative Urine Bilirubin Negative Urine Urobilinogen Negative Ur Leukocyte Esterase Negative Urine WBC (Auto) 1 Urine RBC (Auto) 1 Hyaline Casts 4 Urine Mucus Rare RPR Titer Labs reviewed: UA shows 1+ blood (patient instructed to drink lots of water and to see his PCP within 3 days) - Medication Discharge Medications: Ambulatory Orders NK [No Known Home Medication] 09/01/17 - AMA Did Patient Leave Against Medical Advice: Yes (Instructed to call 911 if feeling sick or any withdrawal symptoms)
[2018-03-11] MEDS: chlordiazePOXIDE 5 MG CAPSULE PO SCH (22:27)
[2018-03-11] MEDS: THIAMINE HCL 100 MG TABLET (FP) PO SCH (22:27)
[2018-03-12] MEDS: chlordiazePOXIDE 5 MG CAPSULE PO SCH (05:43)
[2018-03-12] MEDS: PRENATAL VITAMINS W/ FOLIC ACID TABLET (FP) PO SCH (10:05)
[2018-03-12] MEDS: NICOTINE 14 MG/24 HOURS TOPICAL PATCH TD SCH (10:05)
[2018-03-12] MEDS ORDERED: chlordiazePOXIDE 5 MG CAPSULE PO ONE (11:00)
--- NOTE | 2018-03-12 12:31 | DS ---
[facility] Detox Discharge Summary Admission Date: 03/09/18 Discharge Date: 03/12/18 - History Present History: Alcohol Dependence, Cannabis Dependence, Cocaine Dependence Additional Comments: Patient told staff that he was leaving AMA yesterday but later changed his mind. As per patient, he has cats and a dog at home and he only left them water to drink and no food. Patient requesting to be discharged today if possible. Patient denied any withdrawal sxs. [facility] Helper was able to adjust detox librium protocol so that patient can be discharged later today. Patient met with his counselor, Constantino and was instructed to come in at 8am tomorrow to [facility] to request inpatient rehab. Patient wanted to be admitted to rehab but had to go home and take care of his pets. As per patient, he will give his apartment keys to a family member/friend so that his pets can be fed. Patient is stable for discharge today. Patient instructed to follow up with his PCP within 1 week if not admitted to rehab. Pertinent Past History: Alcohol dependence Cannabis dependence Cocaine dependence Nicotine dependence - Physical Exam Results Vital Signs: Vital Signs Temperature 97.2 F L 03/12/18 09:05 Pulse Rate 76 03/12/18 09:05 Respiratory Rate 18 03/12/18 09:05 Blood Pressure 127/72 03/12/18 09:05 O2 Sat by Pulse Oximetry (%) Pertinent Admission Physical Exam Findings: Withdrawal sxs Laboratory Tests 03/10/18 03/10/18 03/10/18 07:00 07:00 07:00 WBC 6.4 RBC 4.93 Hgb 15.2 Hct 46.1 MCV 93.4 MCH 30.9 MCHC 33.0 RDW 14.5 Plt Count 190 D MPV 8.2 Sodium 141 Potassium 3.8 Chloride 107 Carbon Dioxide 25 Anion Gap 9 BUN 10 Creatinine 0.7 Creat Clearance w eGFR > 60 Random Glucose 70 L Calcium 8.2 L Total Bilirubin 0.3 AST 43 H ALT 77 H Alkaline Phosphatase 76 Total Protein 7.2 Albumin 4.0 Urine Color Urine Appearance Urine pH Ur Specific [place] Urine Protein Urine Glucose (UA) Urine Ketones Urine Blood Urine Nitrite Urine Bilirubin Urine Urobilinogen Ur Leukocyte Esterase Urine WBC (Auto) Urine RBC (Auto) Hyaline Casts Urine Mucus RPR Titer Nonreactive 03/10/18 10:30 WBC RBC Hgb Hct MCV MCH MCHC RDW Plt Count MPV Sodium Potassium Chloride Carbon Dioxide Anion Gap BUN Creatinine Creat Clearance w eGFR Random Glucose Calcium Total Bilirubin AST ALT Alkaline Phosphatase Total Protein Albumin Urine Color Yellow Urine Appearance Clear Urine pH 5.0 Ur Specific [place] 1.016 Urine Protein Negative Urine Glucose (UA) Negative Urine Ketones Negative Urine Blood 1+ H Urine Nitrite Negative Urine Bilirubin Negative Urine Urobilinogen Negative Ur Leukocyte Esterase Negative Urine WBC (Auto) 1 Urine RBC (Auto) 1 Hyaline Casts 4 Urine Mucus Rare RPR Titer Labs reviewed: abnormal UA noted - Treatment Hospital Course: Detox Protocol Followed, Detoxed Safely, Responded well, Discharged Condition Good - Medication Discharge Medications: Ambulatory Orders NK [No Known Home Medication] 09/01/17 - Diagnosis (1) Alcohol dependence with uncomplicated withdrawal Current Visit: Yes Status: Acute (2) Cocaine dependence, uncomplicated Current Visit: Yes Status: Chronic (3) Nicotine dependence, uncomplicated Current Visit: Yes Status: Chronic Qualifiers: Nicotine product type: cigarettes Qualified Code(s): F17.210 - Nicotine dependence, cigarettes, uncomplicated (4) Substance induced mood disorder Current Visit: Yes Status: Acute (5) Cannabis dependence, uncomplicated Current Visit: Yes Status: Chronic (6) Depression Current Visit: Yes Status: Chronic Qualifiers: Depression Type: unspecified Qualified Code(s): F32.9 - Major depressive disorder, single episode, unspecified (7) Abnormal finding on urinalysis Current Visit: Yes Status: Acute - AMA Did Patient Leave Against Medical Advice: No (F/U with your PCP within 1 week)
[2018-03-12 13:49] VITALS: BP 120/83; PULSE 74; TEMP 99.1
[2018-03-12] MEDS: NICOTINE POLACRILEX 2 MG GUM BC PRN (14:47)
[2018-03-12] MEDS ORDERED: chlordiazePOXIDE HCL 10 MG CAPSULE PO ONE (17:00)
[2018-03-12] MEDS ORDERED: chlordiazePOXIDE HCL 10 MG CAPSULE PO SCH (23:00)
[2018-03-12 23:17] LABS: URINE APPEARANCE CLEAR; URINE BILIRUBIN NEGATIVE (<2.0 mg/dL); URINE COLOR STRAW; URINE GLUCOSE (UA) NEGATIVE (NEGATIVE); URINE KETONE NEGATIVE (NEGATIVE); URINE LEUK ESTERASE NEGATIVE (NEGATIVE); URINE NITRITE NEGATIVE (NEGATIVE); URINE PROTEIN NEGATIVE (NEGATIVE); URINE UROBILINOGEN NEGATIVE mg/dL (0.2-1.0)
== END 2018-03-12 17:25 | disposition home or self-care (01) | DRG 774 ==
LOC: YASAS 20:08 → Y3N 22:59
PROC: HZ2ZZZZ Detoxification Services for Substance Abuse Treatment (ICD-10-PCS; principal; 2018-03-09)
DX: F10.230 Alcohol dependence with withdrawal, uncomplicated (principal); F14.20 Cocaine dependence, uncomplicated; F12.20 Cannabis dependence, uncomplicated; F17.210 Nicotine dependence, cigarettes, uncomplicated; F19.24 Other psychoactive substance dependence with psychoactive substance-induced mood disorder; F32.9 Major depressive disorder, single episode, unspecified; R00.0 Tachycardia, unspecified; E86.0 Dehydration; R82.90 Unspecified abnormal findings in urine
CPT/HCPCS: 36415; 80053; 81003; 81015; 85027; 86593; 93005; 93010

== ENCOUNTER 2018-03-14 12:05 | Inpatient (IN) | payer OTHER ==
[2018-03-14 12:31] VITALS: BMI 20.9
[2018-03-14] MEDS ORDERED: guaiFENesin/D-METHORPHAN HB 10 ML UNIT-DOSE CUPS PO PRN (15:40)
[2018-03-14] MEDS ORDERED: IBUPROFEN 400 MG TABLET (FP) PO PRN (15:40)
[2018-03-14] MEDS ORDERED: MENTHOL/PHENOL 1 EACH UD MM PRN (15:40)
[2018-03-14] MEDS ORDERED: MAG HYDROX/AL HYDROX/SIMETH 30 ML UNIT-DOSE CUP PO PRN (15:40)
[2018-03-14] MEDS ORDERED: P-EPHED 60MG/TRIPROLIDI 2.5MG TABLET PO PRN (15:40)
[2018-03-14] MEDS ORDERED: LOPERAMIDE HCL 2 MG CAPSULE PO PRN (15:40)
[2018-03-14] MEDS ORDERED: ACETAMINOPHEN 325 MG TABLET (FP) PO PRN (15:40)
[2018-03-14] MEDS ORDERED: MAGNESIUM CITRATE 300 ML BOTTLE PO PRN (15:40)
[2018-03-14] MEDS ORDERED: MAGNESIUM HYDROX 2400MG/30ML ORAL SUSPENSION 30 ML CUP PO PRN (15:40)
--- NOTE | 2018-03-14 15:40 | HP ---
[facility] Rehab Assess/Revision - Admission History Admitted to Rehab from: [facility] [place] - Vital signs Vital Signs: Vital Signs Period Temp Pulse Resp BP Sys/Ross Pulse Ox Last 24 Hr 97.1 F 102 18 140/84 - Findings Detox History & Physical reviewed: Yes Concur with findings: Yes Inpatient Rehab Admission - Initial Determination Are CD services needed?: Yes Free of communicable disease: Yes Not in need of hospitalization: Yes - Rehab Admission Criteria Previous failed treatment: Yes Poor recovery environment: Yes Comorbidities: Yes Lacks judgement: Yes
[2018-03-14] MEDS: NICOTINE POLACRILEX 4 MG GUM BC PRN (20:05)
[2018-03-14] MEDS: THIAMINE HCL 100 MG TABLET (FP) PO SCH (21:43)
[2018-03-14] MEDS: MELATONIN 5 MG TABLETS PO PRN (21:43)
[2018-03-15 01:26] LABS: URINE APPEARANCE CLEAR; URINE BILIRUBIN NEGATIVE (<2.0 mg/dL); URINE COLOR YELLOW; URINE GLUCOSE (UA) NEGATIVE (NEGATIVE); URINE KETONE NEGATIVE (NEGATIVE); URINE LEUK ESTERASE NEGATIVE (NEGATIVE); URINE NITRITE NEGATIVE (NEGATIVE); URINE PROTEIN NEGATIVE (NEGATIVE); URINE UROBILINOGEN NEGATIVE mg/dL (0.2-1.0)
[2018-03-15] MEDS: NICOTINE POLACRILEX 4 MG GUM BC PRN ×2 (06:16→17:37)
[2018-03-15] MEDS: PRENATAL VITAMINS W/ FOLIC ACID TABLET (FP) PO SCH (09:59)
[2018-03-15] MEDS: NICOTINE 21 MG/24 HOURS TOPICAL PATCH TD SCH (09:59)
[2018-03-15] MEDS: THIAMINE HCL 100 MG TABLET (FP) PO SCH (21:36)
[2018-03-15] MEDS: MELATONIN 5 MG TABLETS PO PRN (21:36)
[2018-03-16] MEDS: NICOTINE POLACRILEX 4 MG GUM BC PRN ×3 (06:12→21:43)
[2018-03-16] MEDS: NICOTINE 21 MG/24 HOURS TOPICAL PATCH TD SCH (10:06)
[2018-03-16] MEDS: PRENATAL VITAMINS W/ FOLIC ACID TABLET (FP) PO SCH (10:06)
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
[2018-03-16] MEDS: THIAMINE HCL 100 MG TABLET (FP) PO SCH (21:42)
[2018-03-16] MEDS: SUVOREXANT 10 MG TABLET PO PRN (21:43)
[2018-03-17] MEDS: NICOTINE POLACRILEX 4 MG GUM BC PRN (06:07)
[2018-03-17] MEDS: PRENATAL VITAMINS W/ FOLIC ACID TABLET (FP) PO SCH (11:34)
[2018-03-17] MEDS: NICOTINE 21 MG/24 HOURS TOPICAL PATCH TD SCH (11:34)
[2018-03-17] MEDS: THIAMINE HCL 100 MG TABLET (FP) PO SCH (21:48)
[2018-03-17] MEDS: SUVOREXANT 10 MG TABLET PO PRN (21:49)
[2018-03-18] MEDS: NICOTINE POLACRILEX 4 MG GUM BC PRN (08:21)
[2018-03-18] MEDS: NICOTINE 21 MG/24 HOURS TOPICAL PATCH TD SCH (11:04)
[2018-03-18] MEDS: PRENATAL VITAMINS W/ FOLIC ACID TABLET (FP) PO SCH (11:04)
[2018-03-18] MEDS: SUVOREXANT 10 MG TABLET PO PRN (21:55)
[2018-03-18] MEDS: THIAMINE HCL 100 MG TABLET (FP) PO SCH (22:46)
[2018-03-19] MEDS: NICOTINE POLACRILEX 4 MG GUM BC PRN (06:12)
[2018-03-19] MEDS: PRENATAL VITAMINS W/ FOLIC ACID TABLET (FP) PO SCH (10:11)
[2018-03-19] MEDS: NICOTINE 21 MG/24 HOURS TOPICAL PATCH TD SCH (10:12)
[2018-03-19] MEDS: THIAMINE HCL 100 MG TABLET (FP) PO SCH (22:07)
[2018-03-19] MEDS: SUVOREXANT 10 MG TABLET PO PRN (22:09)
[2018-03-20] MEDS: PRENATAL VITAMINS W/ FOLIC ACID TABLET (FP) PO SCH (10:15)
[2018-03-20] MEDS: NICOTINE 21 MG/24 HOURS TOPICAL PATCH TD SCH (10:16)
[2018-03-20] MEDS: hydrOXYzine PAMOATE 50 MG CAPSULE (FP) PO PRN (17:34)
[2018-03-20] MEDS: CYCLOBENZAPRINE HCL 10 MG TABLET (FP) PO PRN (17:34)
[2018-03-20] MEDS: NICOTINE POLACRILEX 4 MG GUM BC PRN ×2 (17:35→21:49)
[2018-03-20] MEDS: THIAMINE HCL 100 MG TABLET (FP) PO SCH (21:49)
[2018-03-20] MEDS: SUVOREXANT 10 MG TABLET PO PRN (21:49)
[2018-03-21] MEDS: NICOTINE 21 MG/24 HOURS TOPICAL PATCH TD SCH (10:16)
[2018-03-21] MEDS: PRENATAL VITAMINS W/ FOLIC ACID TABLET (FP) PO SCH (10:16)
[2018-03-21] MEDS: hydrOXYzine PAMOATE 50 MG CAPSULE (FP) PO PRN ×2 (14:36→21:50)
[2018-03-21] MEDS: NICOTINE POLACRILEX 4 MG GUM BC PRN ×2 (14:37→17:50)
[2018-03-21] MEDS: THIAMINE HCL 100 MG TABLET (FP) PO SCH (21:49)
[2018-03-21] MEDS: SUVOREXANT 10 MG TABLET PO PRN (21:50)
[2018-03-22] MEDS: NICOTINE 21 MG/24 HOURS TOPICAL PATCH TD SCH (10:21)
[2018-03-22] MEDS: PRENATAL VITAMINS W/ FOLIC ACID TABLET (FP) PO SCH (10:21)
[2018-03-22] MEDS: hydrOXYzine PAMOATE 50 MG CAPSULE (FP) PO PRN ×2 (10:22→21:39)
[2018-03-22] MEDS: NICOTINE POLACRILEX 4 MG GUM BC PRN ×2 (17:35→21:40)
[2018-03-22] MEDS: THIAMINE HCL 100 MG TABLET (FP) PO SCH (21:38)
[2018-03-22] MEDS: SUVOREXANT 10 MG TABLET PO PRN (21:38)
[2018-03-23] MEDS: PRENATAL VITAMINS W/ FOLIC ACID TABLET (FP) PO SCH (10:08)
[2018-03-23] MEDS: hydrOXYzine PAMOATE 50 MG CAPSULE (FP) PO PRN ×2 (10:08→21:27)
[2018-03-23] MEDS: NICOTINE 21 MG/24 HOURS TOPICAL PATCH TD SCH (10:08)
[2018-03-23] MEDS: THIAMINE HCL 100 MG TABLET (FP) PO SCH (21:25)
[2018-03-23] MEDS: NICOTINE POLACRILEX 4 MG GUM BC PRN (21:28)
[2018-03-23] MEDS: SUVOREXANT 10 MG TABLET PO PRN (22:29)
[2018-03-24] MEDS: hydrOXYzine PAMOATE 50 MG CAPSULE (FP) PO PRN ×4 (01:34→21:47)
[2018-03-24] MEDS: NICOTINE 21 MG/24 HOURS TOPICAL PATCH TD SCH (10:40)
[2018-03-24] MEDS: PRENATAL VITAMINS W/ FOLIC ACID TABLET (FP) PO SCH (10:40)
[2018-03-24] MEDS: NICOTINE POLACRILEX 4 MG GUM BC PRN ×2 (17:34→20:30)
[2018-03-24] MEDS: SUVOREXANT 10 MG TABLET PO PRN (21:47)
[2018-03-24] MEDS: THIAMINE HCL 100 MG TABLET (FP) PO SCH (21:47)
[2018-03-25] MEDS: hydrOXYzine PAMOATE 50 MG CAPSULE (FP) PO PRN ×3 (07:51→21:51)
[2018-03-25] MEDS: PRENATAL VITAMINS W/ FOLIC ACID TABLET (FP) PO SCH (10:36)
[2018-03-25] MEDS: NICOTINE 21 MG/24 HOURS TOPICAL PATCH TD SCH (10:36)
[2018-03-25] MEDS: NICOTINE POLACRILEX 4 MG GUM BC PRN ×2 (15:07→21:52)
[2018-03-25] MEDS: THIAMINE HCL 100 MG TABLET (FP) PO SCH (21:51)
[2018-03-25] MEDS: SUVOREXANT 10 MG TABLET PO PRN (21:51)
[2018-03-25] MEDS: CYCLOBENZAPRINE HCL 10 MG TABLET (FP) PO PRN (21:51)
[2018-03-26] MEDS: NICOTINE POLACRILEX 4 MG GUM BC PRN ×3 (06:20→20:34)
[2018-03-26] MEDS: hydrOXYzine PAMOATE 50 MG CAPSULE (FP) PO PRN ×4 (06:20→20:34)
[2018-03-26] MEDS: NICOTINE 21 MG/24 HOURS TOPICAL PATCH TD SCH (10:20)
[2018-03-26] MEDS: PRENATAL VITAMINS W/ FOLIC ACID TABLET (FP) PO SCH (10:20)
[2018-03-26] MEDS: SUVOREXANT 10 MG TABLET PO PRN (21:56)
[2018-03-26] MEDS: THIAMINE HCL 100 MG TABLET (FP) PO SCH (22:20)
[2018-03-27] MEDS: hydrOXYzine PAMOATE 50 MG CAPSULE (FP) PO PRN ×4 (06:39→21:47)
[2018-03-27] MEDS: NICOTINE POLACRILEX 4 MG GUM BC PRN ×3 (06:39→20:51)
[2018-03-27] MEDS: PRENATAL VITAMINS W/ FOLIC ACID TABLET (FP) PO SCH (11:03)
[2018-03-27] MEDS: NICOTINE 21 MG/24 HOURS TOPICAL PATCH TD SCH (11:03)
--- NOTE | 2018-03-27 18:11 | PN ---
Psychiatric Progress Note Vital Signs: Vital Signs Period Temp Pulse Resp BP Sys/Ross Pulse Ox Last 24 Hr 97.5 F 92 16-18 121/70 Date of Session: 03/27/18 Chief Complaint:: "Discharge" HPI: Patient was admitted to for alcohol and cocaine dependence. ROS: Patient endorses good general health. History of appendectomy approximately 20 years ago. Current Medications: Active Medications Generic Name Dose Route Start Last Admin Trade Name Freq PRN Reason Stop Dose Admin Acetaminophen 650 mg 03/14/18 15:40 Tylenol - PO Q4H PRN FEVER Al Hydroxide/Mg Hydroxide 30 ml 03/14/18 15:40 Mylanta Oral Suspension - PO Q6H PRN DYSPEPSIA Cyclobenzaprine HCl 10 mg 03/14/18 15:42 03/25/18 21:51 Flexeril - PO 10 mg TID PRN Administration MUSCLE SPASMS Eucalyptus/Menthol/Phenol/Sorbitol 1 each 03/14/18 15:40 Cepastat Lozenge - MM Q4H PRN SORE THROAT Guaifenesin 10 ml 03/14/18 15:40 Robitussin Dm - PO Q6H PRN COUGH Hydroxyzine Pamoate 50 mg 03/14/18 15:40 03/27/18 16:02 Vistaril - PO 50 mg Q4H PRN Administration AGITATION Ibuprofen 400 mg 03/14/18 15:40 Motrin - PO Q6H PRN Pain level 4-6 Loperamide HCl 4 mg 03/14/18 15:40 Imodium - PO Q6H PRN DIARRHEA Magnesium Citrate 300 ml 03/14/18 15:40 Citroma - PO Q48H PRN CONSTIPATION Magnesium Hydroxide 30 ml 03/14/18 15:40 Milk Of Magnesia - PO DAILY PRN CONSTIPATION Nicotine 21 mg 03/15/18 10:00 03/27/18 11:03 Nicoderm Patch - TD 21 mg DAILY JAZMYNE Administration Nicotine Polacrilex 4 mg 03/14/18 15:40 03/27/18 16:23 Nicorette Gum - BC 4 mg Q2H PRN Administration NICOTINE REPLACEMENT RX Multivit/Folic Acid/Iron 1 tab 03/15/18 10:00 03/27/18 11:03 Vitamins (Sjr) - PO 1 tab DAILY JAZMYNE Administration Pseudoephedrine/Triprolidine 1 combo 03/14/18 15:40 Actifed - PO TID PRN NASAL CONGESTION Suvorexant 10 mg 03/23/18 21:26 03/26/18 21:56 Belsomra PO 10 mg HS PRN Administration INSOMNIA Thiamine HCl 100 mg 03/14/18 22:00 03/26/18 22:20 Vitamin B1 - PO 100 mg HS JAZMYNE Administration Medication(s) Change(s): No. Current Side Effect: No Lab tests ordered: No Lab tests reviewed: Yes Provider note:: Patient will complete the rehabilitation program on 03/28/18. Patient reports a productive stay and is looking forward to attending the [facility] outpatient clinic on [facility]. Patient is aware of the importance of changing his behaviors and the need for better structure in his life. Patient is at his baseline and is stable for discharge on 03/28/18. Total face to face time:: 35 Mental Status Exam - Mental Status Exam Alert and Oriented to: Time, Place, Person Cognitive Function: Good Patient Appearance: Well Groomed Mood: Hopeful Affect: Appropriate Patient Behavior: Appropriate, Cooperative Speech Pattern: Clear, Appropriate Voice Loudness: Normal Thought Process: Intact, Goal Oriented Thought Disorder: Not Present Hallucinations: Denies Suicidal Ideation: Denies Homicidal Ideation: Denies Insight/Judgement: Good Sleep: Well Appetite: Good Muscle strength/Tone: Normal Gait/Station: Normal Psychiatric Treatment Plan - Problem List (1) Alcohol dependence Current Visit: Yes (2) Cocaine dependence Current Visit: Yes (3) Substance-induced anxiety disorder Current Visit: Yes (4) Substance-induced sleep disorder Current Visit: Yes (5) Nicotine dependence Current Visit: Yes
[2018-03-27] MEDS: SUVOREXANT 10 MG TABLET PO PRN (21:47)
[2018-03-27] MEDS: THIAMINE HCL 100 MG TABLET (FP) PO SCH (21:47)
[2018-03-28] MEDS: NICOTINE POLACRILEX 4 MG GUM BC PRN (06:27)
[2018-03-28 07:18] VITALS: BP 118/67; PULSE 93; TEMP 98
[2018-03-28] MEDS: PRENATAL VITAMINS W/ FOLIC ACID TABLET (FP) PO SCH (09:39)
[2018-03-28] MEDS: NICOTINE 21 MG/24 HOURS TOPICAL PATCH TD SCH (09:39)
== END 2018-03-28 09:55 | disposition home or self-care (01) | DRG 772 ==
LOC: YASAS 12:05 → Y5N 17:32
PROVIDERS: ADMIT Psychiatry & Neurology Psychiatry; ATTEND Psychiatry & Neurology Psychiatry
PROC: HZ42ZZZ Group Counseling for Substance Abuse Treatment, Cognitive-Behavioral (ICD-10-PCS; principal; 2018-03-14)
DX: F10.20 Alcohol dependence, uncomplicated (principal); F14.20 Cocaine dependence, uncomplicated; F17.210 Nicotine dependence, cigarettes, uncomplicated; F19.280 Other psychoactive substance dependence with psychoactive substance-induced anxiety disorder; F19.282 Other psychoactive substance dependence with psychoactive substance-induced sleep disorder; F32.9 Major depressive disorder, single episode, unspecified
CPT/HCPCS: 81003

== ENCOUNTER 2019-01-21 08:06 | Inpatient (IN) | payer OTHER ==
--- NOTE | 2019-01-21 08:37 | HP ---
CIWA Score Nausea/Vomitin-Mild Nausea/No Vomiting Muscle Tremors: 4-Moderate,w/Arms Extend Anxiety: 4-Mod. Anxious/Guarded Agitation: 4-Moderately Restless Paroxysmal Sweats: 3 Orientation: 0-Oriented Tacttile Disturbances: 0-None Auditory Disturbances: 0-None Visual Disturbances: 0-None Headache: 3-Moderate (appropriate for admission) CIWA-Ar Total Score: 19 - Admission Criteria OASAS Guidelines: Admission for Medically Managed Detox: Requires at least one of the followin. CIWA greater than 12 2. Seizures within the past 24 hours 3. Delirium tremens within the past 24 hours 4. Hallucinations within the past 24 hours 5. Acute intervention needed for co occurring medical disorder 6. Acute intervention needed for co occurring psychiatric disorder 7. Severe withdrawal that cannot be handled at a lower level of care (continued vomiting, continued diarrhea, abnormal vital signs) requiring intravenous medication and/or fluids 8. Admission ROS S - HPI Chief Complaint: " I'm here for detox." Allergies/Adverse Reactions: Allergies Allergy/AdvReac Type Severity Reaction Status Date / Time No Known Allergies Allergy Verified 01/21/19 08:34 History of Present Illness: 43 years old male with 20 years of alcohol dependence is seeking admission to detox. Patient has been to multiple detox and reports insignificant period of sobriety. He denies medical history and suicidal ideation at this time. He is using 8-10 24 ounce beers a day, last drank last night. He is using cocaine 4-5 times per week. He uses 3 bags of cocaine when he uses , last used 1 week ago He is smoking 1.5 -2 ppd PMH: none Psurg Hx: Appendectomy Homeless Exam Limitations: No Limitations - Ebola screening Have you traveled outside of the country in the last 21 days: No Have you had contact with anyone from an Ebola affected area: No Have you been sick,other than usual withdrawal symptoms: No Do you have a fever: No - Review of Systems Constitutional: Chills, Diaphoresis EENT: reports: No Symptoms Reported Respiratory: reports: No Symptoms reported Cardiac: reports: No Symptoms Reported GI: reports: No Symptoms Reported : reports: No Symptoms Reported Musculoskeletal: reports: No Symptoms Reported Integumentary: reports: No Symptoms Reported Neuro: reports: No Symptoms reported Endocrine: reports: No Symptoms Reported Hematology: reports: No Symptoms Reported Psychiatric: reports: Mood/Affect Appropiate, Orientated x3 Other Systems: Reviewed and Negative Patient History - Patient Medical History Hx Anemia: No Hx Asthma: No Hx Chronic Obstructive Pulmonary Disease (COPD): No Hx Cancer: No Hx Cardiac Disorders: No Hx Congestive Heart Failure: No Hx Hypertension: No Hx Hypercholesterolemia: No Hx Pacemaker: No HX Cerebrovascular Accident: No Hx Seizures: No Hx Dementia: No Hx Diabetes: No Hx Gastrointestinal Disorders: No Hx Liver Disease: No Hx Genitourinary Disorders: No Hx Sexually Transmitted Disorders: No Hx Renal Disease (ESRD): No Hx Thyroid Disease: No Hx Human Immunodeficiency Virus (HIV): No Hx Hepatitis C: No Hx Depression: No Hx Suicide Attempt: No Hx Bipolar Disorder: No Hx Schizophrenia: No - Patient Surgical History Past Surgical History: Yes Hx Neurologic Surgery: No Hx Cataract Extraction: No Hx Cardiac Surgery: No Hx Lung Surgery: No Hx Breast Surgery: No Hx Breast Biopsy: No Hx Abdominal Surgery: No Hx Appendectomy: Yes (20 yrs ago) Hx Cholecystectomy: No Hx Genitourinary Surgery: No Hx Section: No Hx Orthopedic Surgery: No Anesthesia Reaction: No - PPD History Previous Implant?: Yes Documented Results: Negative w/proof Implanted On Prior [facility] Admission?: Yes Date: 09/03/17 Results: 0 mm PPD to be Administered?: Yes - Smoking Cessation Smoking history: Current every day smoker Have you smoked in the past 12 months: Yes Aproximately how many cigarettes per day: 40 Cigars Per Day: 0 Hx Chewing Tobacco Use: No Initiated information on smoking cessation: Yes 'Breaking Loose' booklet given: 01/21/19 - Substances abused Alcohol Substance route: Oral Frequency: Daily Amount used: 8 to 10 24 cans of beers Age of first use: 27 Date of last use: 01/20/19 Cocaine Substance route: Inhalation Frequency: Daily Amount used: 5-7 GRAMS Age of first use: 18 Date of last use: 01/19/19 Marijuana/Hashish Substance route: Smoking Frequency: 1-2 times per week Amount used: $10 Age of first use: 15 Date of last use: 01/14/19 Admission Physical Exam BHS - Physical General Appearance: Yes: Moderate Distress HEENTM: Yes: EOMI, Hearing grossly Normal, Normal ENT Inspection, Normocephalic , Normal Voice, KVNG Respiratory: Yes: Chest Non-Tender, Lungs Clear, Normal Breath Sounds, No Respiratory Distress, No Accessory Muscle Use Neck: Yes: No masses,lesions,Nodules, Trachea in good position Breast: Yes: Within Normal Limits, Axillae without masses, No Discharge, No masses Cardiology: Yes: Regular Rhythm, Regular Rate Abdominal: Yes: Normal Bowel Sounds, Non Tender, Flat, Soft Genitourinary: Yes: Within Normal Limits Back: Yes: Within Normal Limits Musculoskeletal: Yes: full range of Motion, Gait Steady, Pelvis Stable, Muscle Pain Extremities: Yes: Normal Capillary Refill, Normal Inspection, Normal Range of Motion, Non-Tender Neurological: Yes: hybrid derivatives 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 II-XII NML intact, Fully Oriented, Alert, Motor Strength 5/5, Normal Mood/Affect Integumentary: Yes: Normal Color, Warm Lymphatic: Yes: Within Normal Limits - Diagnostic (1) Substance-induced anxiety disorder Current Visit: Yes Status: Acute (2) Alcohol dependence with uncomplicated withdrawal Current Visit: Yes Status: Chronic (3) Cocaine dependence, uncomplicated Current Visit: Yes Status: Chronic (4) Nicotine dependence Current Visit: Yes Status: Chronic Screened but not Admitted - Documentation of Visit Screened but not Admitted: No Breathalyzer - Breathalyzer Breathalyzer: 0.066 Inpatient Rehab Admission - Rehab Decision to Admit Inpatient rehab admission?: No - Initial Determination Are CD services needed?: No Free of communicable disease: No Not in need of hospitalization: No - Rehab Admission Criteria Previous failed treatment: No Poor recovery environment: No Comorbidities: No Lacks judgement: No Patient is meeting Inpatient Rehab admission criteria:: No
[2019-01-21 08:40] VITALS: BMI 19.8
[2019-01-21] MEDS ORDERED: METHOCARBAMOL 500 MG TABLET PO PRN (09:31)
[2019-01-21] MEDS ORDERED: MAGNESIUM HYDROX 2400MG/30ML ORAL SUSPENSION 30 ML CUP PO PRN (09:31)
[2019-01-21] MEDS ORDERED: BISMUTH SUBSALICYLATE 262 MG/15 ML BTL PO PRN (09:31)
[2019-01-21] MEDS ORDERED: MENTHOL/PHENOL 1 EACH UD MM PRN (09:31)
[2019-01-21] MEDS ORDERED: MAG HYDROX/AL HYDROX/SIMETH 30 ML UNIT-DOSE CUP PO PRN (09:31)
[2019-01-21] MEDS ORDERED: MAGNESIUM CITRATE 300 ML BOTTLE PO PRN (09:31)
[2019-01-21] MEDS ORDERED: IBUPROFEN 400 MG TABLET (FP) PO PRN (09:31)
[2019-01-21] MEDS ORDERED: ACETAMINOPHEN 325 MG TABLET (FP) PO PRN ×2 (09:31)
[2019-01-21] MEDS: PRENATAL VITAMINS W/ FOLIC ACID TABLET (FP) PO SCH (11:22)
[2019-01-21] MEDS: chlordiazePOXIDE HCL 10 MG CAPSULE PO PRN ×2 (11:22→17:28)
[2019-01-21] MEDS: NICOTINE 21 MG/24 HOURS TOPICAL PATCH TD SCH (11:22)
[2019-01-21 12:23] LABS: HEMATOCRIT 42.4 % (35.4-49); HEMOGLOBIN 14.4 GM/dL (11.7-16.9); MCH 31.3 pg (25.7-33.7); MCHC 33.8 g/dl (32.0-35.9); MEAN CELL VOLUME 92.4 fl (80-96); MEAN PLT VOLUME 8.3 fl (7.5-11.1); PLATELET COUNT 293 K/MM3 (134-434); RBC 4.59 M/mm3 (4.00-5.60); RDW 14.3 % (11.9-15.9); WHITE BLOOD COUNT 6.5 K/mm3 (4.0-10.0)
[2019-01-21 12:42] LABS: ALBUMIN 4.1 g/dl (3.4-5.0); BILIRUBIN,TOTAL 0.9 mg/dL (0.2-1); BLOOD UREA NITROGEN 17.8 mg/dL (7-18); CALCIUM 9.1 mg/dL (8.5-10.1); CREATININE 0.8 mg/dL (0.55-1.3); POTASSIUM 4.5 mmol/L (3.5-5.1); TOT PROT 7.6 g/dl (6.4-8.2)
[2019-01-21] MEDS: chlordiazePOXIDE HCL 25 MG CAPSULE PO SCH ×2 (13:34→22:10)
[2019-01-21] MEDS: THIAMINE HCL 100 MG TABLET (FP) PO SCH (22:10)
[2019-01-21] MEDS: hydrOXYzine PAMOATE 25 MG CAPSULE (FP) PO PRN (22:12)
[2019-01-21] MEDS: MELATONIN 5 MG TABLETS PO PRN (22:12)
[2019-01-22] MEDS: chlordiazePOXIDE HCL 25 MG CAPSULE PO SCH ×3 (05:54→22:12)
--- NOTE | 2019-01-22 09:52 | PN ---
S CIWA - CIWA Score Nausea/Vomitin Muscle Tremors: 4-Moderate,w/Arms Extend Anxiety: 3 Agitation: 3 Paroxysmal Sweats: 2 Orientation: 0-Oriented Tacttile Disturbances: 1-Very Mild Itch/Numbness Auditory Disturbances: 0-None Visual Disturbances: 0-None Headache: 0-None Present CIWA-Ar Total Score: 15 S Progress Note (SOAP) Subjective: ate breakfast resting on bed encourage discuss aftercare with staff Objective: 01/22/19 09:57 Vital Signs Temperature 97.3 F L 01/22/19 09:15 Pulse Rate 87 01/22/19 09:15 Respiratory Rate 18 01/22/19 09:15 Blood Pressure 148/99 01/22/19 09:15 O2 Sat by Pulse Oximetry (%) Laboratory Last Values WBC 6.5 K/mm3 (4.0-10.0) 01/21/19 10:00 RBC 4.59 M/mm3 (4.00-5.60) 01/21/19 10:00 Hgb 14.4 GM/dL (11.7-16.9) 01/21/19 10:00 Hct 42.4 % (35.4-49) 01/21/19 10:00 MCV 92.4 fl (80-96) 01/21/19 10:00 MCH 31.3 pg (25.7-33.7) 01/21/19 10:00 MCHC 33.8 g/dl (32.0-35.9) 01/21/19 10:00 RDW 14.3 % (11.9-15.9) 01/21/19 10:00 Plt Count 293 K/MM3 (134-434) D 01/21/19 10:00 MPV 8.3 fl (7.5-11.1) 01/21/19 10:00 Sodium 137 mmol/L (136-145) 01/21/19 10:00 Potassium 4.5 mmol/L (3.5-5.1) 01/21/19 10:00 Chloride 101 mmol/L (98-107) 01/21/19 10:00 Carbon Dioxide 31 mmol/L (21-32) 01/21/19 10:00 Anion Gap 6 MMOL/L (8-16) L 01/21/19 10:00 BUN 17.8 mg/dL (7-18) 01/21/19 10:00 Creatinine 0.8 mg/dL (0.55-1.3) 01/21/19 10:00 Est GFR (CKD-EPI)AfAm 126.81 01/21/19 10:00 Est GFR (CKD-EPI)NonAf 109.41 01/21/19 10:00 Random Glucose 87 mg/dL (74-106) 01/21/19 10:00 Calcium 9.1 mg/dL (8.5-10.1) 01/21/19 10:00 Total Bilirubin 0.9 mg/dL (0.2-1) 01/21/19 10:00 AST 46 U/L (15-37) H 01/21/19 10:00 ALT 35 U/L (13-61) 01/21/19 10:00 Alkaline Phosphatase 107 U/L (45-117) 01/21/19 10:00 Total Protein 7.6 g/dl (6.4-8.2) 01/21/19 10:00 Albumin 4.1 g/dl (3.4-5.0) 01/21/19 10:00 RPR Titer Nonreactive (NONREACTIVE) 01/21/19 10:00 lab noted 01/22/19 09:59 bp elevation begin amlodine Assessment: 01/22/19 09:59 alcohohol withdrawal sx Plan: continue librium detox regimen
[2019-01-22] MEDS: PRENATAL VITAMINS W/ FOLIC ACID TABLET (FP) PO SCH (10:06)
[2019-01-22] MEDS: NICOTINE 21 MG/24 HOURS TOPICAL PATCH TD SCH (10:07)
[2019-01-22] MEDS: amLODIPine BESYLATE 5 MG TABLET (FP) PO SCH (11:06)
[2019-01-22] MEDS: NICOTINE POLACRILEX 2 MG GUM BUC PRN (19:17)
[2019-01-22] MEDS: MELATONIN 5 MG TABLETS PO PRN (22:12)
[2019-01-22] MEDS: THIAMINE HCL 100 MG TABLET (FP) PO SCH (22:12)
[2019-01-22] MEDS: hydrOXYzine PAMOATE 25 MG CAPSULE (FP) PO PRN (22:13)
[2019-01-23] MEDS: chlordiazePOXIDE 5 MG CAPSULE PO SCH ×3 (05:44→22:06)
[2019-01-23] MEDS: amLODIPine BESYLATE 5 MG TABLET (FP) PO SCH (10:25)
[2019-01-23] MEDS: PRENATAL VITAMINS W/ FOLIC ACID TABLET (FP) PO SCH (10:25)
[2019-01-23] MEDS: NICOTINE 21 MG/24 HOURS TOPICAL PATCH TD SCH (10:25)
[2019-01-23] MEDS: NICOTINE POLACRILEX 2 MG GUM BUC PRN ×3 (11:28→18:17)
--- NOTE | 2019-01-23 13:58 | PN ---
[facility] CIWA - CIWA Score Nausea/Vomitin-No Nausea/No Vomiting Muscle Tremors: 2 Anxiety: 2 Agitation: 1-Slight > Activity Paroxysmal Sweats: 2 Orientation: 0-Oriented Tacttile Disturbances: 1-Very Mild Itch/Numbness Auditory Disturbances: 0-None Visual Disturbances: 1-Very Mild Sensitivity Headache: 1-Very Mild CIWA-Ar Total Score: 10 S Progress Note (SOAP) Subjective: c/o of interrupted sleep, fatigue and chills Objective: 01/23/19 13:56 Vital Signs Temperature 97.1 F L 01/23/19 13:17 Pulse Rate 80 01/23/19 13:17 Respiratory Rate 18 01/23/19 13:17 Blood Pressure 119/75 01/23/19 13:17 O2 Sat by Pulse Oximetry (%) Laboratory Last Values WBC 6.5 K/mm3 (4.0-10.0) 01/21/19 10:00 RBC 4.59 M/mm3 (4.00-5.60) 01/21/19 10:00 Hgb 14.4 GM/dL (11.7-16.9) 01/21/19 10:00 Hct 42.4 % (35.4-49) 01/21/19 10:00 MCV 92.4 fl (80-96) 01/21/19 10:00 MCH 31.3 pg (25.7-33.7) 01/21/19 10:00 MCHC 33.8 g/dl (32.0-35.9) 01/21/19 10:00 RDW 14.3 % (11.9-15.9) 01/21/19 10:00 Plt Count 293 K/MM3 (134-434) D 01/21/19 10:00 MPV 8.3 fl (7.5-11.1) 01/21/19 10:00 Sodium 137 mmol/L (136-145) 01/21/19 10:00 Potassium 4.5 mmol/L (3.5-5.1) 01/21/19 10:00 Chloride 101 mmol/L (98-107) 01/21/19 10:00 Carbon Dioxide 31 mmol/L (21-32) 01/21/19 10:00 Anion Gap 6 MMOL/L (8-16) L 01/21/19 10:00 BUN 17.8 mg/dL (7-18) 01/21/19 10:00 Creatinine 0.8 mg/dL (0.55-1.3) 01/21/19 10:00 Est GFR (CKD-EPI)AfAm 126.81 01/21/19 10:00 Est GFR (CKD-EPI)NonAf 109.41 01/21/19 10:00 Random Glucose 87 mg/dL (74-106) 01/21/19 10:00 Calcium 9.1 mg/dL (8.5-10.1) 01/21/19 10:00 Total Bilirubin 0.9 mg/dL (0.2-1) 01/21/19 10:00 AST 46 U/L (15-37) H 01/21/19 10:00 ALT 35 U/L (13-61) 01/21/19 10:00 Alkaline Phosphatase 107 U/L (45-117) 01/21/19 10:00 Total Protein 7.6 g/dl (6.4-8.2) 01/21/19 10:00 Albumin 4.1 g/dl (3.4-5.0) 01/21/19 10:00 RPR Titer Nonreactive (NONREACTIVE) 01/21/19 10:00 labs reviewed Assessment: 01/23/19 13:57 Patient Aox3 no acute distress EENT WNL no adventitious breath sounds full ROM no gait abnormality ambulating in the unit withdrawal sx Plan: increase PO fluids continue detox continue to monitor
[2019-01-23] MEDS: THIAMINE HCL 100 MG TABLET (FP) PO SCH (22:06)
[2019-01-23] MEDS: MELATONIN 5 MG TABLETS PO PRN (22:07)
[2019-01-24] MEDS ORDERED: chlordiazePOXIDE HCL 10 MG CAPSULE PO PRN
[2019-01-24] MEDS: chlordiazePOXIDE HCL 10 MG CAPSULE PO SCH ×3 (05:46→22:11)
[2019-01-24] MEDS: amLODIPine BESYLATE 5 MG TABLET (FP) PO SCH (10:15)
[2019-01-24] MEDS: NICOTINE 21 MG/24 HOURS TOPICAL PATCH TD SCH (10:15)
[2019-01-24] MEDS: PRENATAL VITAMINS W/ FOLIC ACID TABLET (FP) PO SCH (10:15)
[2019-01-24] MEDS: NICOTINE POLACRILEX 2 MG GUM BUC PRN ×2 (13:28→19:18)
--- NOTE | 2019-01-24 14:50 | PN ---
[facility] CIWA - CIWA Score Nausea/Vomitin-No Nausea/No Vomiting Muscle Tremors: None Anxiety: 0-No Anxiety, at Ease Agitation: 2 Paroxysmal Sweats: No Perspiration Orientation: 0-Oriented Tacttile Disturbances: 0-None Auditory Disturbances: 0-None Visual Disturbances: 0-None Headache: 0-None Present CIWA-Ar Total Score: 2 BHS Progress Note (SOAP) Subjective: Patient denies current Withdrawal / Detox symptoms and reports that he feels well overall at this time. Objective: PATIENT A & O X 3, OBSERVED AMBULATING ON DETOX UNIT UNASSISTED. IN NO ACUTE DISTRESS. 01/24/19 14:48 Vital Signs Temperature 97.8 F 01/24/19 13:08 Pulse Rate 75 01/24/19 13:08 Respiratory Rate 18 01/24/19 13:08 Blood Pressure 123/75 01/24/19 13:08 O2 Sat by Pulse Oximetry (%) Laboratory Tests 01/21/19 01/21/19 01/21/19 10:00 10:00 10:00 WBC 6.5 RBC 4.59 Hgb 14.4 Hct 42.4 MCV 92.4 MCH 31.3 MCHC 33.8 RDW 14.3 Plt Count 293 D MPV 8.3 Sodium 137 Potassium 4.5 Chloride 101 Carbon Dioxide 31 Anion Gap 6 L BUN 17.8 Creatinine 0.8 Est GFR (CKD-EPI)AfAm 126.81 Est GFR (CKD-EPI)NonAf 109.41 Random Glucose 87 Calcium 9.1 Total Bilirubin 0.9 AST 46 H ALT 35 Alkaline Phosphatase 107 Total Protein 7.6 Albumin 4.1 RPR Titer Nonreactive LABS NOTED. PATIENT HAS HAD ELEVATED AST LEVELS ON PREVIOUS ADMISSIONS. Assessment: 01/24/19 14:48 WITHDRAWAL SYMPTOMS. Plan: CONTINUE DETOX. PATIENT SCHEDULED FOR D/C FROM DETOX UNIT TOMORROW.
[2019-01-24] MEDS: THIAMINE HCL 100 MG TABLET (FP) PO SCH (22:11)
[2019-01-24] MEDS: MELATONIN 5 MG TABLETS PO PRN (22:11)
[2019-01-25] MEDS ORDERED: chlordiazePOXIDE HCL 10 MG CAPSULE PO ONE (05:00)
[2019-01-25 09:36] VITALS: BP 120/81; PULSE 79; TEMP 96.8
--- NOTE | 2019-01-25 10:06 | DS ---
[facility] Detox Discharge Summary Admission Date: 01/21/19 Discharge Date: 01/25/19 - History Present History: Alcohol Dependence Additional Comments: did well with librium detox regimen no complication through out the detox stay patient is alert oriented x 3 cardiac S1S2 regular rate rhythm respiratory clear lung bilaterally on auscultation abdomen soft no rebound tenderness - Physical Exam Results Vital Signs: Vital Signs Temperature 96.8 F L 01/25/19 09:35 Pulse Rate 79 01/25/19 09:35 Respiratory Rate 18 01/25/19 09:35 Blood Pressure 120/81 01/25/19 09:35 O2 Sat by Pulse Oximetry (%) Pertinent Admission Physical Exam Findings: alcohol withdrawal sx Laboratory Last Values WBC 6.5 K/mm3 (4.0-10.0) 01/21/19 10:00 RBC 4.59 M/mm3 (4.00-5.60) 01/21/19 10:00 Hgb 14.4 GM/dL (11.7-16.9) 01/21/19 10:00 Hct 42.4 % (35.4-49) 01/21/19 10:00 MCV 92.4 fl (80-96) 01/21/19 10:00 MCH 31.3 pg (25.7-33.7) 01/21/19 10:00 MCHC 33.8 g/dl (32.0-35.9) 01/21/19 10:00 RDW 14.3 % (11.9-15.9) 01/21/19 10:00 Plt Count 293 K/MM3 (134-434) D 01/21/19 10:00 MPV 8.3 fl (7.5-11.1) 01/21/19 10:00 Sodium 137 mmol/L (136-145) 01/21/19 10:00 Potassium 4.5 mmol/L (3.5-5.1) 01/21/19 10:00 Chloride 101 mmol/L (98-107) 01/21/19 10:00 Carbon Dioxide 31 mmol/L (21-32) 01/21/19 10:00 Anion Gap 6 MMOL/L (8-16) L 01/21/19 10:00 BUN 17.8 mg/dL (7-18) 01/21/19 10:00 Creatinine 0.8 mg/dL (0.55-1.3) 01/21/19 10:00 Est GFR (CKD-EPI)AfAm 126.81 01/21/19 10:00 Est GFR (CKD-EPI)NonAf 109.41 01/21/19 10:00 Random Glucose 87 mg/dL (74-106) 01/21/19 10:00 Calcium 9.1 mg/dL (8.5-10.1) 01/21/19 10:00 Total Bilirubin 0.9 mg/dL (0.2-1) 01/21/19 10:00 AST 46 U/L (15-37) H 01/21/19 10:00 ALT 35 U/L (13-61) 01/21/19 10:00 Alkaline Phosphatase 107 U/L (45-117) 01/21/19 10:00 Total Protein 7.6 g/dl (6.4-8.2) 01/21/19 10:00 Albumin 4.1 g/dl (3.4-5.0) 01/21/19 10:00 RPR Titer Nonreactive (NONREACTIVE) 01/21/19 10:00 lab noted - Treatment Hospital Course: Detox Protocol Followed, Detoxed Safely, Responded well, Discharged Condition Good, Rehab Referral Accepted Patient has Accepted [facility] Referral [facility] - Medication Discharge Medications: Ambulatory Orders NK [No Known Home Medication] 09/01/17 - Diagnosis (1) Alcohol dependence with uncomplicated withdrawal Status: Acute (2) Nicotine dependence Status: Acute Qualifiers: Nicotine product type: cigarettes Substance use status: in withdrawal Qualified Code(s): F17.213 - Nicotine dependence, cigarettes, with withdrawal - AMA Did Patient Leave Against Medical Advice: No CIWA Score - CIWA Score Nausea/Vomitin-No Nausea/No Vomiting Muscle Tremors: None Anxiety: 0-No Anxiety, at Ease Agitation: 1-Slight > Activity Paroxysmal Sweats: No Perspiration Orientation: 0-Oriented Tacttile Disturbances: 0-None Auditory Disturbances: 0-None Visual Disturbances: 0-None Headache: 0-None Present CIWA-Ar Total Score: 1
== END 2019-01-25 09:39 | disposition home or self-care (01) | DRG 774 ==
LOC: YASAS 08:06 → Y3N 09:52
PROVIDERS: ADMIT Surgery; ATTEND Surgery
PROC: HZ2ZZZZ Detoxification Services for Substance Abuse Treatment (ICD-10-PCS; principal; 2019-01-21)
DX: F10.230 Alcohol dependence with withdrawal, uncomplicated (principal); F14.20 Cocaine dependence, uncomplicated; F17.213 Nicotine dependence, cigarettes, with withdrawal; F19.280 Other psychoactive substance dependence with psychoactive substance-induced anxiety disorder; R03.0 Elevated blood-pressure reading, without diagnosis of hypertension
CPT/HCPCS: 36415; 80053; 85027; 86593

== ENCOUNTER 2019-01-26 08:27 | Inpatient (IN) | payer OTHER ==
--- NOTE | 2019-01-26 09:22 | HP ---
CIWA Score Nausea/Vomitin-No Nausea/No Vomiting Muscle Tremors: None Anxiety: 0-No Anxiety, at Ease Agitation: 0-Normal Activity Paroxysmal Sweats: No Perspiration Orientation: 0-Oriented Tacttile Disturbances: 0-None Auditory Disturbances: 0-None Visual Disturbances: 0-None Headache: 0-None Present CIWA-Ar Total Score: 0 - Admission Criteria OASAS Guidelines: Admission for Medically Managed Detox: Requires at least one of the followin. CIWA greater than 12 2. Seizures within the past 24 hours 3. Delirium tremens within the past 24 hours 4. Hallucinations within the past 24 hours 5. Acute intervention needed for co occurring medical disorder 6. Acute intervention needed for co occurring psychiatric disorder 7. Severe withdrawal that cannot be handled at a lower level of care (continued vomiting, continued diarrhea, abnormal vital signs) requiring intravenous medication and/or fluids 8. 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 He just completed detox 1 day ago but there was no rehab bed at that time but he is here to be admitted now. He drank a little yesterday night. He drinks 14 cans 24 oz beers daily. He uses 5 gm of cocaine daily, last used 1.5 weeks ago. He uses $20 daily, last used 1.5 weeks ago. He smokes 2 ppd of ciggarettes daily, last smoked this morning. His breathalyzer is now zero. PMH: HTN on meds while he was in detox Psurg: appendenctomy 20 years ago Psych: none He has a misdemeanor warrant to appear later this month in court He is homeless but not in the jail system. 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 No: Crohn's Disease Hepatobiliary: No: Cirrhosis, Cholelithiasis, Cholecystitis Renal/: No: Renal Failure, Hematuria, Neurogenic Bladder, Renal Calculi Heme/Onc: No: Anemia Infectious Disease: No: AIDS Psych: No: Anxiety, Bipolar, Depression, Psychosis, Schizophrenia Musculoskeletal: Yes: Chronic low back pain ENT: No: Allergic Rhinitis, Sinusitis Dermatology: No: Cellulitis, Eczema - Past Surgical History Past Surgical History: Yes: Appendectomy - Smoking History Smoking history: Current every day smoker Have you smoked in the past 12 months: Yes Aproximately how many cigarettes per day: 40 - Alcohol/Substance Use Hx Alcohol Use: Yes Number of Drinks Daily: 20 History of Substance Use: reports: Cocaine, Marijuana Date of Last Use: 01/15/19 - Social History Usual Living Arrangement: Yes: Alone Do you think of yourself as: Straight/Heterosexual ADL: Independent 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 Exam Limitations: No Limitations - Ebola screening Have you traveled outside of the country in the last 21 days: No Have you had contact with anyone from an Ebola affected area: No Have you been sick,other than usual withdrawal symptoms: No Do you have a fever: No - Review of Systems Constitutional: No Symptoms Reported EENT: reports: No Symptoms Reported Respiratory: reports: No Symptoms reported Cardiac: reports: No Symptoms Reported GI: reports: No Symptoms Reported : reports: No Symptoms Reported Musculoskeletal: reports: No Symptoms Reported Integumentary: reports: No Symptoms Reported Neuro: reports: No Symptoms reported Endocrine: reports: No Symptoms Reported Hematology: reports: No Symptoms Reported Psychiatric: reports: Judgement Intact, Mood/Affect Appropiate, Orientated x3 Other Systems: Reviewed and Negative Patient History - Patient Medical History Hx Anemia: No Hx Asthma: No Hx Chronic Obstructive Pulmonary Disease (COPD): No Hx Cancer: No Hx Cardiac Disorders: No Hx Congestive Heart Failure: No Hx Hypertension: No Hx Hypercholesterolemia: No Hx Pacemaker: No HX Cerebrovascular Accident: No Hx Seizures: No Hx Dementia: No Hx Diabetes: No Hx Gastrointestinal Disorders: No Hx Liver Disease: No Hx Genitourinary Disorders: No Hx Sexually Transmitted Disorders: No Hx Renal Disease (ESRD): No Hx Thyroid Disease: No Hx Human Immunodeficiency Virus (HIV): No Hx Hepatitis C: No Hx Depression: No Hx Suicide Attempt: No Hx Bipolar Disorder: No Hx Schizophrenia: No - Patient Surgical History Past Surgical History: Yes Hx Neurologic Surgery: No Hx Cataract Extraction: No Hx Cardiac Surgery: No Hx Lung Surgery: No Hx Breast Surgery: No Hx Breast Biopsy: No Hx Abdominal Surgery: No Hx Appendectomy: Yes (20 yrs ago) Hx Cholecystectomy: No Hx Genitourinary Surgery: No Hx Section: No Hx Orthopedic Surgery: No Anesthesia Reaction: No - PPD History Date: 01/23/19 Results: 0 mm - Smoking Cessation Smoking history: Current every day smoker Have you smoked in the past 12 months: Yes Aproximately how many cigarettes per day: 40 Cigars Per Day: 0 Hx Chewing Tobacco Use: No Initiated information on smoking cessation: Yes 'Breaking Loose' booklet given: 01/26/19 - Substances abused Alcohol Substance route: Oral Frequency: Daily Amount used: 8 to 10 24 cans of beers Age of first use: 27 Date of last use: 01/25/19 Cocaine Substance route: Inhalation Frequency: Daily Amount used: 5-7 GRAMS Age of first use: 18 Date of last use: 01/19/19 Marijuana/Hashish Substance route: Smoking Frequency: 1-2 times per week Amount used: $10 Age of first use: 15 Date of last use: 01/14/19 Admission Physical Exam [facility] - Physical General Appearance: Yes: No Apparent Distress, Nourished, Appropriately Dressed HEENTM: Yes: EOMI, Hearing grossly Normal, Normal ENT Inspection, Normocephalic , Normal Voice, KVNG, Pharynx Normal, Tm's normal Respiratory: Yes: Chest Non-Tender, Lungs Clear, Normal Breath Sounds, No Accessory Muscle Use Neck: Yes: No masses,lesions,Nodules Breast: Yes: Within Normal Limits, Axillae without masses, Breasts Symetrical, No Discharge, No masses, Other Cardiology: Yes: Regular Rhythm, Regular Rate, S1, S2 Abdominal: Yes: Normal Bowel Sounds, Non Tender, Flat, Soft Genitourinary: Yes: Within Normal Limits Back: Yes: Normal Inspection Musculoskeletal: Yes: full range of Motion, Gait Steady, Pelvis Stable Extremities: Yes: Normal Capillary Refill, Normal Inspection, Normal Range of Motion, Non-Tender Neurological: Yes: cpo II-XII NML intact, Fully Oriented, Alert, Motor Strength 5/5, Normal Mood/Affect Integumentary: Yes: Normal Color, Warm Lymphatic: Yes: Within Normal Limits - Diagnostic (1) Alcohol dependence Current Visit: Yes Status: Acute (2) Cocaine dependence Current Visit: Yes Status: Acute (3) Nicotine dependence Current Visit: Yes Status: Acute Qualifiers: Nicotine product type: cigarettes Substance use status: in withdrawal Qualified Code(s): F17.213 - Nicotine dependence, cigarettes, with withdrawal (4) Substance-induced anxiety disorder Current Visit: Yes Status: Acute Cleared for Admission [facility] - Detox or Rehab [facility] Level of Care: Medically Supervised Screened but not Admitted - Documentation of Visit Screened but not Admitted: No Left Prior to Completion of Assessment: No Insurance Authorization Denied: No Patient Does Not Meet Criteria for Admission: No Alternative Treatment/Usp Info Provided: No Breathalyzer - Breathalyzer Breathalyzer: 0.066 Urine Drug Screen - Test Device Lot number: [id number] Expiration date: 09/26/20 - Control Is test valid?: Yes - Results Drug screen NEGATIVE: No Inpatient Rehab Admission - Rehab Decision to Admit Inpatient rehab admission?: No
[2019-01-26] MEDS ORDERED: ACETAMINOPHEN 325 MG TABLET (FP) PO PRN (09:32)
[2019-01-26] MEDS ORDERED: MAGNESIUM CITRATE 300 ML BOTTLE PO PRN (09:32)
[2019-01-26] MEDS ORDERED: MAG HYDROX/AL HYDROX/SIMETH 30 ML UNIT-DOSE CUP PO PRN (09:32)
[2019-01-26] MEDS ORDERED: LOPERAMIDE HCL 2 MG CAPSULE PO PRN (09:32)
[2019-01-26] MEDS ORDERED: MAGNESIUM HYDROX 2400MG/30ML ORAL SUSPENSION 30 ML CUP PO PRN (09:32)
[2019-01-26] MEDS ORDERED: P-EPHED 60MG/TRIPROLIDI 2.5MG TABLET PO PRN (09:32)
[2019-01-26] MEDS ORDERED: IBUPROFEN 400 MG TABLET (FP) PO PRN (09:32)
[2019-01-26] MEDS ORDERED: LISINOPRIL 5 MG TABLET (FP) PO ONE (09:39)
[2019-01-26 09:41] VITALS: BMI 21.1
[2019-01-26] MEDS: amLODIPine BESYLATE 5 MG TABLET (FP) PO SCH (10:27)
[2019-01-26] MEDS: NICOTINE 14 MG/24 HOURS TOPICAL PATCH TD SCH (10:28)
[2019-01-26] MEDS: PRENATAL VITAMINS W/ FOLIC ACID TABLET (FP) PO SCH (10:28)
[2019-01-26] MEDS: guaiFENesin 200 MG/10 ML 10 ML UNIT-DOSE CUPS PO PRN (18:15)
[2019-01-26] MEDS: MELATONIN 5 MG TABLETS PO PRN (21:13)
[2019-01-26] MEDS: THIAMINE HCL 100 MG TABLET (FP) PO SCH (21:13)
[2019-01-27] MEDS: PRENATAL VITAMINS W/ FOLIC ACID TABLET (FP) PO SCH (09:47)
[2019-01-27] MEDS: amLODIPine BESYLATE 5 MG TABLET (FP) PO SCH (09:47)
[2019-01-27] MEDS: NICOTINE 14 MG/24 HOURS TOPICAL PATCH TD SCH (09:47)
[2019-01-27 12:07] LABS: URINE APPEARANCE TURBID; URINE BILIRUBIN NEGATIVE (NEGATIVE); URINE COLOR YELLOW; URINE GLUCOSE (UA) NEGATIVE (NEGATIVE); URINE KETONE NEGATIVE (NEGATIVE); URINE LEUK ESTERASE NEGATIVE (NEGATIVE); URINE NITRITE NEGATIVE (NEGATIVE); URINE PROTEIN NEGATIVE (NEGATIVE); URINE UROBILINOGEN 0.2 mg/dL (0.2-1.0)
[2019-01-27] MEDS: THIAMINE HCL 100 MG TABLET (FP) PO SCH (21:28)
[2019-01-27] MEDS: MELATONIN 5 MG TABLETS PO PRN (21:28)
[2019-01-27] MEDS: guaiFENesin 200 MG/10 ML 10 ML UNIT-DOSE CUPS PO PRN (21:30)
[2019-01-28] MEDS: MENTHOL/PHENOL 1 EACH UD MM PRN ×2 (06:22→10:07)
[2019-01-28] MEDS: guaiFENesin 200 MG/10 ML 10 ML UNIT-DOSE CUPS PO PRN ×3 (06:22→19:36)
[2019-01-28] MEDS: PRENATAL VITAMINS W/ FOLIC ACID TABLET (FP) PO SCH (10:06)
[2019-01-28] MEDS: NICOTINE 14 MG/24 HOURS TOPICAL PATCH TD SCH (10:06)
[2019-01-28] MEDS: amLODIPine BESYLATE 5 MG TABLET (FP) PO SCH (10:06)
[2019-01-28] MEDS: THIAMINE HCL 100 MG TABLET (FP) PO SCH (21:10)
[2019-01-28] MEDS: MELATONIN 5 MG TABLETS PO PRN (21:10)
[2019-01-29] MEDS: guaiFENesin 200 MG/10 ML 10 ML UNIT-DOSE CUPS PO PRN ×3 (01:42→21:38)
[2019-01-29] MEDS: MENTHOL/PHENOL 1 EACH UD MM PRN (01:42)
[2019-01-29] MEDS: amLODIPine BESYLATE 5 MG TABLET (FP) PO SCH (09:50)
[2019-01-29] MEDS: NICOTINE 14 MG/24 HOURS TOPICAL PATCH TD SCH (09:50)
[2019-01-29] MEDS: PRENATAL VITAMINS W/ FOLIC ACID TABLET (FP) PO SCH (09:50)
[2019-01-29] MEDS: THIAMINE HCL 100 MG TABLET (FP) PO SCH (21:37)
[2019-01-29] MEDS: MELATONIN 5 MG TABLETS PO PRN (21:38)
[2019-01-30] MEDS: NICOTINE 14 MG/24 HOURS TOPICAL PATCH TD SCH (10:00)
[2019-01-30] MEDS: PRENATAL VITAMINS W/ FOLIC ACID TABLET (FP) PO SCH (10:00)
[2019-01-30] MEDS: amLODIPine BESYLATE 5 MG TABLET (FP) PO SCH (10:00)
[2019-01-30] MEDS: guaiFENesin 200 MG/10 ML 10 ML UNIT-DOSE CUPS PO PRN ×2 (10:01→21:28)
[2019-01-30] MEDS: MENTHOL/PHENOL 1 EACH UD MM PRN (21:28)
[2019-01-30] MEDS: MELATONIN 5 MG TABLETS PO PRN (21:28)
[2019-01-30] MEDS: THIAMINE HCL 100 MG TABLET (FP) PO SCH (21:28)
[2019-01-31] MEDS: PRENATAL VITAMINS W/ FOLIC ACID TABLET (FP) PO SCH (10:37)
[2019-01-31] MEDS: amLODIPine BESYLATE 5 MG TABLET (FP) PO SCH (10:37)
[2019-01-31] MEDS: NICOTINE 14 MG/24 HOURS TOPICAL PATCH TD SCH (10:37)
[2019-01-31] MEDS: THIAMINE HCL 100 MG TABLET (FP) PO SCH (21:20)
[2019-01-31] MEDS: guaiFENesin 200 MG/10 ML 10 ML UNIT-DOSE CUPS PO PRN (21:20)
[2019-01-31] MEDS: MELATONIN 5 MG TABLETS PO PRN (21:20)
[2019-02-01] MEDS: NICOTINE 14 MG/24 HOURS TOPICAL PATCH TD SCH (09:18)
[2019-02-01] MEDS: PRENATAL VITAMINS W/ FOLIC ACID TABLET (FP) PO SCH (09:18)
[2019-02-01] MEDS: amLODIPine BESYLATE 5 MG TABLET (FP) PO SCH (09:18)
[2019-02-01] MEDS: THIAMINE HCL 100 MG TABLET (FP) PO SCH (21:10)
[2019-02-01] MEDS: MELATONIN 5 MG TABLETS PO PRN (21:10)
[2019-02-02] MEDS: NICOTINE 14 MG/24 HOURS TOPICAL PATCH TD SCH (10:16)
[2019-02-02] MEDS: amLODIPine BESYLATE 5 MG TABLET (FP) PO SCH (10:16)
[2019-02-02] MEDS: PRENATAL VITAMINS W/ FOLIC ACID TABLET (FP) PO SCH (10:16)
[2019-02-02] MEDS: MELATONIN 5 MG TABLETS PO PRN (21:24)
[2019-02-02] MEDS: THIAMINE HCL 100 MG TABLET (FP) PO SCH (21:24)
[2019-02-03] MEDS: NICOTINE 14 MG/24 HOURS TOPICAL PATCH TD SCH (09:53)
[2019-02-03] MEDS: amLODIPine BESYLATE 5 MG TABLET (FP) PO SCH (09:53)
[2019-02-03] MEDS: PRENATAL VITAMINS W/ FOLIC ACID TABLET (FP) PO SCH (09:53)
[2019-02-03] MEDS: MELATONIN 5 MG TABLETS PO PRN (21:09)
[2019-02-03] MEDS: THIAMINE HCL 100 MG TABLET (FP) PO SCH (21:09)
[2019-02-04] MEDS: amLODIPine BESYLATE 5 MG TABLET (FP) PO SCH (10:08)
[2019-02-04] MEDS: NICOTINE 14 MG/24 HOURS TOPICAL PATCH TD SCH (10:08)
[2019-02-04] MEDS: PRENATAL VITAMINS W/ FOLIC ACID TABLET (FP) PO SCH (10:08)
[2019-02-04] MEDS: THIAMINE HCL 100 MG TABLET (FP) PO SCH (21:14)
[2019-02-04] MEDS: MELATONIN 5 MG TABLETS PO PRN (21:14)
[2019-02-05] MEDS: NICOTINE 14 MG/24 HOURS TOPICAL PATCH TD SCH (09:55)
[2019-02-05] MEDS: PRENATAL VITAMINS W/ FOLIC ACID TABLET (FP) PO SCH (09:55)
[2019-02-05] MEDS: amLODIPine BESYLATE 5 MG TABLET (FP) PO SCH (09:55)
[2019-02-05] MEDS: NICOTINE POLACRILEX 2 MG GUM BUC PRN ×2 (09:56→21:19)
--- NOTE | 2019-02-05 12:02 | CONSULT ---
[facility] Psychiatric Consult - Data Date of interview: 02/05/19 Admission source: Self-referred Identifying data: Mr Laurent is a 43 years old single male, unemployed with no source of income, homeless seeking rehab treatment alcohol, cocaine and cannabis Substance Abuse History: Reports history of alcohol, cocaine and marijuana use. Refer to addiction counselor's summary for further information Medical History: Significant for hypertension and appendectomy at age 18. Smokes cigarettes 2 ppd Psychiatric History: Denies history of previous psychiatric treatment. However, reports feeling anxious and sleeping poorly Physical/Sexual Abuse/Trauma History: Denies history of emotional, physical or sexual abuse as well as DV relationship. No service Mental Status Exam - Mental Status Exam Alert and Oriented to: Time, Place, Person Cognitive Function: Fair Patient Appearance: Well Groomed Mood: Anxious Affect: Appropriate Patient Behavior: Cooperative Speech Pattern: Clear Voice Loudness: Normal Thought Process: Intact, Goal Oriented Thought Disorder: Not Present Hallucinations: Denies Suicidal Ideation: Denies Homicidal Ideation: Denies Insight/Judgement: Fair Sleep: Poorly Appetite: Good Muscle strength/Tone: Normal Gait/Station: Normal Psychiatric Findings - Problem List ([place] 1, 2,3) (1) Substance-induced anxiety disorder Current Visit: Yes Status: Acute (2) Substance-induced sleep disorder Current Visit: No Status: Acute (3) Alcohol dependence Current Visit: Yes Status: Acute (4) Cocaine dependence Current Visit: Yes Status: Acute (5) Cannabis abuse Current Visit: Yes Status: Acute (6) Nicotine dependence Current Visit: Yes Status: Chronic Qualifiers: Nicotine product type: cigarettes Substance use status: in withdrawal Qualified Code(s): F17.213 - Nicotine dependence, cigarettes, with withdrawal (7) HTN (hypertension) Current Visit: Yes Status: Chronic - Initial Treatment Plan Initial Treatment Plan: 1) Start Belsomra 10 mg po HS prn for insomnia and Vistaril 50 mg po Q 4hrs prn for anxiety. 2) Continue inpatient rehabilitation
[2019-02-05] MEDS: THIAMINE HCL 100 MG TABLET (FP) PO SCH (21:18)
[2019-02-05] MEDS: hydrOXYzine PAMOATE 50 MG CAPSULE (FP) PO PRN (21:18)
[2019-02-05] MEDS: MELATONIN 5 MG TABLETS PO PRN (21:18)
[2019-02-05] MEDS ORDERED: SUVOREXANT 10 MG TABLET PO PRN (22:00)
[2019-02-06] MEDS ORDERED: PT OWN MED DRAWER 7, Y5N ONE (10:01)
[2019-02-06] MEDS: amLODIPine BESYLATE 5 MG TABLET (FP) PO SCH (10:08)
[2019-02-06] MEDS: PRENATAL VITAMINS W/ FOLIC ACID TABLET (FP) PO SCH (10:08)
[2019-02-06] MEDS: NICOTINE 14 MG/24 HOURS TOPICAL PATCH TD SCH (10:08)
[2019-02-06] MEDS: hydrOXYzine PAMOATE 50 MG CAPSULE (FP) PO PRN ×2 (13:49→21:14)
[2019-02-06] MEDS: NICOTINE POLACRILEX 2 MG GUM BUC PRN ×2 (13:52→21:16)
[2019-02-06] MEDS: MELATONIN 5 MG TABLETS PO PRN (21:14)
[2019-02-06] MEDS: THIAMINE HCL 100 MG TABLET (FP) PO SCH (21:15)
[2019-02-07] MEDS: NICOTINE POLACRILEX 2 MG GUM BUC PRN ×3 (06:56→21:30)
[2019-02-07] MEDS: hydrOXYzine PAMOATE 50 MG CAPSULE (FP) PO PRN ×3 (10:06→21:29)
[2019-02-07] MEDS: NICOTINE 14 MG/24 HOURS TOPICAL PATCH TD SCH (10:06)
[2019-02-07] MEDS: PRENATAL VITAMINS W/ FOLIC ACID TABLET (FP) PO SCH (10:06)
[2019-02-07] MEDS: amLODIPine BESYLATE 5 MG TABLET (FP) PO SCH (10:06)
[2019-02-07] MEDS: THIAMINE HCL 100 MG TABLET (FP) PO SCH (21:29)
[2019-02-08] MEDS: hydrOXYzine PAMOATE 50 MG CAPSULE (FP) PO PRN ×2 (09:51→17:38)
[2019-02-08] MEDS: PRENATAL VITAMINS W/ FOLIC ACID TABLET (FP) PO SCH (09:51)
[2019-02-08] MEDS: amLODIPine BESYLATE 5 MG TABLET (FP) PO SCH (09:51)
[2019-02-08] MEDS: NICOTINE 14 MG/24 HOURS TOPICAL PATCH TD SCH (09:51)
[2019-02-08] MEDS: NICOTINE POLACRILEX 2 MG GUM BUC PRN ×3 (14:46→21:20)
--- NOTE | 2019-02-08 15:47 | PN ---
[facility] Progress Note Note: Psychiatric nurse practitioner note: Belsoma 10mg renewed X3 days. Verbal consent given.
[2019-02-08] MEDS: MELATONIN 5 MG TABLETS PO PRN (21:19)
[2019-02-08] MEDS: THIAMINE HCL 100 MG TABLET (FP) PO SCH (21:19)
[2019-02-08] MEDS ORDERED: SUVOREXANT 10 MG TABLET PO PRN (22:00)
[2019-02-09 07:06] VITALS: BP 116/75; PULSE 78; TEMP 97.5
--- NOTE | 2019-02-09 14:11 | DS ---
[facility] Rehab Discharge Summary - [facility] Rehab Discharge Summary Admission Date: 01/26/19 Discharge Date: 02/09/19 - History Present History: Alcohol dependence, Cannabis dependence, Cocaine dependence - Discharge Physical Exam Vital Signs: Vital Signs Temperature 97.5 F L 02/09/19 06:00 Pulse Rate 78 02/09/19 06:00 Respiratory Rate 18 02/09/19 06:00 Blood Pressure 116/75 02/09/19 06:00 O2 Sat by Pulse Oximetry (%) Pertinent Admission Physical Exam Findings: ROS: denies chest pain, sob, dizziness and ETOH cravings. PE: alert and oriented x 3 skin warm and dry +perrla eoms intact bl neck supple, no jvd car s1s2, rrr resp cta bl, no wheezes or rhonchi ext full rom, no tremors - Treatment Discharge Condition: Discharge condition good Hospital Course: Patient attended group meetings and states he accomplished all rehab goals. Patient to attend aftercare group meetings at / and encouraged to complete 12 step program to prevent relapse. Patient is medically stable and denies SI/ HI and time of discharge. Laboratory Tests 01/27/19 09:40 Urine Color Yellow Urine Appearance Turbid Urine pH 7.0 Ur Specific [place] 1.016 Urine Protein Negative Urine Glucose (UA) Negative Urine Ketones Negative Urine Blood Negative Urine Nitrite Negative Urine Bilirubin Negative Urine Urobilinogen 0.2 Ur Leukocyte Esterase Negative Vital Signs Temperature 97.5 F L 02/09/19 06:00 Pulse Rate 78 02/09/19 06:00 Respiratory Rate 18 02/09/19 06:00 Blood Pressure 116/75 02/09/19 06:00 O2 Sat by Pulse Oximetry (%) Ambulatory Orders Amlodipine Besylate [Norvasc -] 5 mg PO DAILY #14 tablet 02/09/19 - Medication Discharge Medications: Ambulatory Orders Amlodipine Besylate [Norvasc -] 5 mg PO DAILY #14 tablet 02/09/19 - Medication-Assisted Treatment (MAT) Medication-Assisted Treatment (MAT): No - Discharge Instructions Diet, activity, other medical instructions: Diet: Activity: Other medical instructions: - Follow-up Referral Minutes to complete discharge: 30 - AMA Did Patient Leave Against Medical Advice: No
== END 2019-02-09 09:20 | disposition home or self-care (01) | DRG 774 ==
LOC: YASAS 08:27 → Y3W 10:12
PROVIDERS: ADMIT Neuromusculoskeletal Medicine & OMM; ATTEND Neuromusculoskeletal Medicine & OMM
PROC: HZ2ZZZZ Detoxification Services for Substance Abuse Treatment (ICD-10-PCS; principal; 2019-01-26)
DX: F10.20 Alcohol dependence, uncomplicated (principal); F14.20 Cocaine dependence, uncomplicated; F12.10 Cannabis abuse, uncomplicated; F17.210 Nicotine dependence, cigarettes, uncomplicated; F19.280 Other psychoactive substance dependence with psychoactive substance-induced anxiety disorder; F19.282 Other psychoactive substance dependence with psychoactive substance-induced sleep disorder; I10 Essential (primary) hypertension; K21.9 Gastro-esophageal reflux disease without esophagitis; Z59.0 Homelessness
CPT/HCPCS: 81003

== ENCOUNTER 2019-06-20 08:09 | Inpatient (IN) | payer OTHER ==
--- NOTE | 2019-06-20 08:58 | BHS.RME ---
Substance Use & Tx History - Substance Use History Alcohol Substance amount: 10 24oz cans beer Frequency of use: Daily Substance route: Oral Date of Last Use: 06/20/19 Cocaine (Crack) Substance amount: $200 Frequency of use: Daily Substance route: Smoking Date of Last Use: 06/20/19 - Last Treatment Date of last treatment: 01/26/19 Treatment type: Substance Use Disorder (JOANN) Where was last treatment: Detox Physical/Psych/Mental Status - Behavior General Behavior: Increased activity (restlessness, agitation) Eye Contact: Normal - Cooperativeness Cooperativeness: Reluctant - Physical Health Problems Is patient presently having any pain?: No Does patient presently have any injuries (include location): No Does patient currently have a fever: No Is patient : No CIWA Nausea/Vomitin Muscle Tremors: 3 Anxiety: 4-Mod. Anxious/Guarded Agitation: 1-Slight > Activity Paroxysmal Sweats: No Perspiration Orientation: 1-Uncertain about Date Tacttile Disturbances: 1-Very Mild Itch/Numbness Auditory Disturbances: 0-None Visual Disturbances: 0-None Headache: 2-Mild CIWA-Ar Total Score: 14
[2019-06-20 09:09] VITALS: BMI 21.2
--- NOTE | 2019-06-20 09:34 | HP ---
CIWA Score Nausea/Vomitin Muscle Tremors: 3 Anxiety: 4-Mod. Anxious/Guarded Agitation: 1-Slight > Activity Paroxysmal Sweats: No Perspiration Orientation: 1-Uncertain about Date Tacttile Disturbances: 1-Very Mild Itch/Numbness Auditory Disturbances: 0-None Visual Disturbances: 0-None Headache: 2-Mild CIWA-Ar Total Score: 14 - Admission Criteria OASAS Guidelines: Admission for Medically Managed Detox: Requires at least one of the followin. CIWA greater than 12 2. Seizures within the past 24 hours 3. Delirium tremens within the past 24 hours 4. Hallucinations within the past 24 hours 5. Acute intervention needed for co occurring medical disorder 6. Acute intervention needed for co occurring psychiatric disorder 7. Severe withdrawal that cannot be handled at a lower level of care (continued vomiting, continued diarrhea, abnormal vital signs) requiring intravenous medication and/or fluids 8. Patient presents the following: CIWA greater than 12 Admission Criteria Met: Admission criteria met Admitting History and Physical - Admission History Source: Patient, Medical Record Limitations to Obtaining History: No Limitations - Past Medical History Psych: Yes: Other (insomnia) Musculoskeletal: Yes: Chronic low back pain - Past Surgical History Past Surgical History: Yes: Appendectomy - Smoking History Smoking history: Current every day smoker Have you smoked in the past 12 months: Yes Aproximately how many cigarettes per day: 40 - Alcohol/Substance Use Hx Alcohol Use: Yes Number of Drinks Daily: 20 History of Substance Use: reports: Cocaine Date of Last Use: 06/19/19 - Social History Usual Living Arrangement: Yes: Other ADL: Independent 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 Allergies/Adverse Reactions: Allergies Allergy/AdvReac Type Severity Reaction Status Date / Time No Known Allergies Allergy Verified 06/20/19 09:15 History of Present Illness: 44 yo gentleman here for detox from alcohol, also using cocaine. Last here December 2018 - did well but did not f/u with outpatient groups and relapsed. No seizure, no black outs. 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 Patient denies any recent ED visits. Drinks first thing in the morning to keep himself from shaking. We discussed MAT for alcohol and he is interested. Also encouraged 12 step meetings after discharge. Exam Limitations: No Limitations - Review of Systems Constitutional: Loss of Appetite, Malaise, Changes in sleep, Weakness, Unintentional Wgt. Loss EENT: reports: Blurred Vision Respiratory: reports: No Symptoms reported Cardiac: reports: No Symptoms Reported GI: reports: Nausea, Poor Appetite, Indigestion : reports: Frequency Musculoskeletal: reports: Back Pain, Muscle Pain Integumentary: reports: Dryness Neuro: reports: Headache, Numbness, Tremors Endocrine: reports: No Symptoms Reported Hematology: reports: No Symptoms Reported Psychiatric: reports: Judgement Intact, Mood/Affect Appropiate, Anxious Other Systems: Reviewed and Negative Patient History - Patient Medical History Hx Anemia: No Hx Asthma: No Hx Chronic Obstructive Pulmonary Disease (COPD): No Hx Cancer: No Hx Cardiac Disorders: No Hx Congestive Heart Failure: No Hx Hypertension: No Hx Hypercholesterolemia: No Hx Pacemaker: No HX Cerebrovascular Accident: No Hx Seizures: No Hx Dementia: No Hx Diabetes: No Hx Gastrointestinal Disorders: No Hx Liver Disease: No Hx Genitourinary Disorders: No Hx Sexually Transmitted Disorders: No Hx Renal Disease (ESRD): No Hx Thyroid Disease: No Hx Human Immunodeficiency Virus (HIV): No Hx Hepatitis C: No Hx Depression: Yes (no treatment, never hospitalized) Hx Suicide Attempt: No (denies) Hx Bipolar Disorder: No Hx Schizophrenia: No Other Medical History: back pain - Patient Surgical History Past Surgical History: Yes Hx Neurologic Surgery: No Hx Cataract Extraction: No Hx Cardiac Surgery: No Hx Lung Surgery: No Hx Breast Surgery: No Hx Breast Biopsy: No Hx Abdominal Surgery: No Hx Appendectomy: Yes (20 yrs ago) Hx Cholecystectomy: No Hx Genitourinary Surgery: No Hx Section: No Hx Orthopedic Surgery: No Anesthesia Reaction: No - PPD History Previous Implant?: Yes Documented Results: Negative w/proof Implanted On Prior [facility] Admission?: Yes Date: 01/23/19 Results: 0mm PPD to be Administered?: No - Reproductive History Patient is a Female of Child Bearing Age (11 -55 yrs old): No (male) Patient : No - Smoking Cessation Smoking history: Current every day smoker Have you smoked in the past 12 months: Yes Aproximately how many cigarettes per day: 40 Cigars Per Day: 0 Hx Chewing Tobacco Use: No Initiated information on smoking cessation: Yes 'Breaking Loose' booklet given: 06/20/19 (give on floor) - Substance & Tx. History Hx Alcohol Use: Yes Hx Substance Use: Yes Substance Use Type: Alcohol, Cocaine Hx Substance Use Treatment: Yes (detox, rehab) - Substances abused Alcohol Substance route: Oral Frequency: Daily Amount used: 10 (24oz Cans) Beers Age of first use: 17 Date of last use: 06/20/19 Cocaine Substance route: Smoking Frequency: Daily Amount used: $200 Age of first use: 18 Date of last use: 06/20/19 Marijuana/Hashish Substance route: Smoking Frequency: Daily Amount used: 1/2 oz week Age of first use: 15 Date of last use: 06/19/19 Admission Physical Exam [facility] - Vital Signs Vital Signs: Vital Signs - 24 hr 06/20/19 09:06 Temperature 97.5 F L Pulse Rate 84 Respiratory 16 Rate Blood Pressure 120/80 - Physical General Appearance: Yes: Nourished, Appropriately Dressed, Moderate Distress, Tremorous, Anxious HEENTM: Yes: Hearing grossly Normal, Normocephalic, Normal Voice, Pharynx Normal , Other (poor dentition) Respiratory: Yes: No Respiratory Distress, Rhonchi Neck: Yes: No masses,lesions,Nodules Breast: Yes: Breast Exam Deferred Cardiology: Yes: Regular Rhythm, Regular Rate Abdominal: Yes: Soft Genitourinary: Yes: Frequency Back: Yes: Normal Inspection Musculoskeletal: Yes: full range of Motion, Gait Steady, Back pain Extremities: Yes: Normal Inspection Neurological: Yes: Fully Oriented, Alert, Normal Mood/Affect, Normal Response Integumentary: Yes: Normal Color, Warm Lymphatic: Yes: Within Normal Limits - Diagnostic (1) Alcohol dependence with uncomplicated withdrawal Current Visit: Yes Status: Acute (2) Cocaine dependence Current Visit: Yes Status: Acute Qualifiers: Substance use status: uncomplicated Qualified Code(s): F14.20 - Cocaine dependence, uncomplicated (3) Nicotine dependence Current Visit: Yes Status: Chronic Qualifiers: Nicotine product type: cigarettes Substance use status: in withdrawal Qualified Code(s): F17.213 - Nicotine dependence, cigarettes, with withdrawal (4) Chronic back pain Current Visit: Yes Status: Chronic Qualifiers: Back pain location: low back pain Back pain laterality: bilateral Sciatica presence: without sciatica Qualified Code(s): M54.5 - Low back pain; G89.29 - Other chronic pain (5) Insomnia Current Visit: Yes Status: Acute Qualifiers: Insomnia type: unspecified Qualified Code(s): G47.00 - Insomnia, unspecified Comment: states helped by seroquel Cleared for Admission S - Detox or Rehab [facility] Level of Care: Medically Managed Detox Regimen/Protocol: Librium Breathalyzer - Breathalyzer Breathalyzer: 0.066 Urine Drug Screen - Test Device Lot number: [id number] Expiration date: 03/28/21 - Control Is test valid?: Yes - Results Drug screen NEGATIVE: No Urine drug screen results: THC-Marijuana, CATARINO-Cocaine Inpatient Rehab Admission - Rehab Decision to Admit Inpatient rehab admission?: No
[2019-06-20] MEDS ORDERED: MAG HYDROX/AL HYDROX/SIMETH 30 ML UNIT-DOSE CUP PO PRN (09:37)
[2019-06-20] MEDS ORDERED: METHOCARBAMOL 500 MG TABLET PO PRN (09:37)
[2019-06-20] MEDS ORDERED: chlordiazePOXIDE HCL 25 MG CAPSULE PO PRN (09:37)
[2019-06-20] MEDS ORDERED: BISMUTH SUBSALICYLATE 524 MG/30 ML UD PO PRN (09:37)
[2019-06-20] MEDS ORDERED: IBUPROFEN 400 MG TABLET (FP) PO PRN (09:37)
[2019-06-20] MEDS ORDERED: MAGNESIUM HYDROX 2400MG/30ML ORAL SUSPENSION 30 ML CUP PO PRN (09:37)
[2019-06-20] MEDS ORDERED: MENTHOL/PHENOL 1 EACH UD MM PRN (09:37)
[2019-06-20] MEDS ORDERED: hydrOXYzine PAMOATE 25 MG CAPSULE (FP) PO PRN (09:37)
[2019-06-20] MEDS ORDERED: MAGNESIUM CITRATE 300 ML BOTTLE PO PRN (09:37)
[2019-06-20] MEDS ORDERED: chlordiazePOXIDE HCL 25 MG CAPSULE PO ONE (09:37)
[2019-06-20] MEDS ORDERED: ACETAMINOPHEN 325 MG TABLET (FP) PO PRN ×2 (09:37)
[2019-06-20] MEDS: chlordiazePOXIDE HCL 25 MG CAPSULE PO SCH ×3 (11:43→22:12)
[2019-06-20] MEDS: PRENATAL VITAMINS W/ FOLIC ACID TABLET (FP) PO SCH (11:43)
[2019-06-20] MEDS: NICOTINE 21 MG/24 HOURS TOPICAL PATCH TD SCH (11:45)
[2019-06-20] MEDS: METHYL SALICYLATE/MENTHOL OINT 30 GM TUBE TP SCH ×2 (13:15→22:14)
[2019-06-20] MEDS: THIAMINE HCL 100 MG TABLET (FP) PO SCH (22:12)
[2019-06-20] MEDS: MELATONIN 5 MG TABLETS PO PRN (22:12)
[2019-06-21] MEDS: chlordiazePOXIDE HCL 25 MG CAPSULE PO SCH ×4 (06:08→22:23)
[2019-06-21 09:43] LABS: HEMATOCRIT 44.5 % (35.4-49); HEMOGLOBIN 15.1 GM/dL (11.7-16.9); MCH 31.2 pg (25.7-33.7); MEAN CELL VOLUME 91.7 fl (80-96); MEAN PLT VOLUME 8.5 fl (7.5-11.1); PLATELET COUNT 253 K/MM3 (134-434); RBC 4.86 M/mm3 (4.00-5.60); RDW 13.8 % (11.9-15.9); WHITE BLOOD COUNT 6.5 K/mm3 (4.0-10.0)
[2019-06-21 10:14] LABS: ALBUMIN 3.3 g/dl (3.4-5.0); BILIRUBIN,TOTAL 0.5 mg/dL (0.2-1); BLOOD UREA NITROGEN 10.9 mg/dL (7-18); CALCIUM 8.8 mg/dL (8.5-10.1); CREATININE 0.8 mg/dL (0.55-1.3); TOT PROT 6.2 g/dl (6.4-8.2)
--- NOTE | 2019-06-21 10:55 | PN ---
S CIWA - CIWA Score Nausea/Vomitin-Mild Nausea/No Vomiting Muscle Tremors: 4-Moderate,w/Arms Extend Anxiety: 4-Mod. Anxious/Guarded Agitation: 0-Normal Activity Paroxysmal Sweats: 1-Minimal Palms Moist Orientation: 0-Oriented Tacttile Disturbances: 0-None Auditory Disturbances: 0-None Visual Disturbances: 1-Very Mild Sensitivity Headache: 1-Very Mild CIWA-Ar Total Score: 12 [facility] Progress Note (SOAP) Subjective: 44 years old male admitted on 06/20/19 for alcohol withdrawal sx management treating with librium detox regimentfeeling ok today alert oriented x 3 speech clearly discussed aftercare with staff "I want to go to long chain beamer" encourage the patent to attend behavior and psychosocial therapies groups and meetings while in detox Objective: 06/21/19 10:54 Vital Signs Temperature 97 F L 06/21/19 08:53 Pulse Rate 80 06/21/19 08:53 Respiratory Rate 20 06/21/19 08:53 Blood Pressure 132/81 06/21/19 08:53 O2 Sat by Pulse Oximetry (%) Laboratory Last Values WBC 6.5 K/mm3 (4.0-10.0) 06/21/19 07:10 RBC 4.86 M/mm3 (4.00-5.60) 06/21/19 07:10 Hgb 15.1 GM/dL (11.7-16.9) 06/21/19 07:10 Hct 44.5 % (35.4-49) 06/21/19 07:10 MCV 91.7 fl (80-96) 06/21/19 07:10 MCH 31.2 pg (25.7-33.7) 06/21/19 07:10 MCHC 34.0 g/dl (32.0-35.9) 06/21/19 07:10 RDW 13.8 % (11.9-15.9) 06/21/19 07:10 Plt Count 253 K/MM3 (134-434) 06/21/19 07:10 MPV 8.5 fl (7.5-11.1) 06/21/19 07:10 Sodium 139 mmol/L (136-145) 06/21/19 07:10 Potassium 4.0 mmol/L (3.5-5.1) 06/21/19 07:10 Chloride 106 mmol/L (98-107) 06/21/19 07:10 Carbon Dioxide 28 mmol/L (21-32) 06/21/19 07:10 Anion Gap 5 MMOL/L (8-16) L 06/21/19 07:10 BUN 10.9 mg/dL (7-18) 06/21/19 07:10 Creatinine 0.8 mg/dL (0.55-1.3) 06/21/19 07:10 Est GFR (CKD-EPI)AfAm 125.92 06/21/19 07:10 Est GFR (CKD-EPI)NonAf 108.65 06/21/19 07:10 Random Glucose 89 mg/dL (74-106) 06/21/19 07:10 Calcium 8.8 mg/dL (8.5-10.1) 06/21/19 07:10 Total Bilirubin 0.5 mg/dL (0.2-1) 06/21/19 07:10 AST 19 U/L (15-37) 06/21/19 07:10 ALT 26 U/L (13-61) 06/21/19 07:10 Alkaline Phosphatase 77 U/L (45-117) 06/21/19 07:10 Total Protein 6.2 g/dl (6.4-8.2) L 06/21/19 07:10 Albumin 3.3 g/dl (3.4-5.0) L 06/21/19 07:10 lab noted Assessment: 06/21/19 10:54 alcohol withdrawal Plan: librium regiment
[2019-06-21] MEDS: NICOTINE 21 MG/24 HOURS TOPICAL PATCH TD SCH (10:56)
[2019-06-21] MEDS: PRENATAL VITAMINS W/ FOLIC ACID TABLET (FP) PO SCH (10:56)
[2019-06-21] MEDS: METHYL SALICYLATE/MENTHOL OINT 30 GM TUBE TP SCH ×2 (10:59→22:31)
[2019-06-21] MEDS: THIAMINE HCL 100 MG TABLET (FP) PO SCH (22:23)
[2019-06-21] MEDS: MELATONIN 5 MG TABLETS PO PRN (22:23)
[2019-06-21] MEDS: QUEtiapine FUMARATE 100 MG TABLET (FP) PO PRN (22:24)
[2019-06-21] MEDS: NICOTINE POLACRILEX 4 MG GUM BUC PRN (22:24)
[2019-06-22] MEDS: chlordiazePOXIDE HCL 25 MG CAPSULE PO SCH ×4 (05:16→22:25)
[2019-06-22] MEDS: NICOTINE POLACRILEX 4 MG GUM BUC PRN (07:32)
[2019-06-22] MEDS: PRENATAL VITAMINS W/ FOLIC ACID TABLET (FP) PO SCH (10:06)
[2019-06-22] MEDS: NICOTINE 21 MG/24 HOURS TOPICAL PATCH TD SCH (10:07)
[2019-06-22] MEDS: METHYL SALICYLATE/MENTHOL OINT 30 GM TUBE TP SCH ×2 (10:08→22:25)
--- NOTE | 2019-06-22 10:09 | PN ---
[facility] CIWA - CIWA Score Nausea/Vomitin-No Nausea/No Vomiting Muscle Tremors: 3 Anxiety: 3 Agitation: 0-Normal Activity Paroxysmal Sweats: 2 Orientation: 0-Oriented Tacttile Disturbances: 0-None Auditory Disturbances: 0-None Visual Disturbances: 0-None Headache: 0-None Present CIWA-Ar Total Score: 8 [facility] Progress Note (SOAP) Subjective: 44 years old male admitted on 06/20/19 for alcohol withdrawal sx management treating with librium detox regiment feeling tired prefers to stay in bed limited conversation with staff Objective: 06/22/19 10:09 Vital Signs Temperature 96.8 F L 06/22/19 08:34 Pulse Rate 82 06/22/19 08:34 Respiratory Rate 18 06/22/19 08:34 Blood Pressure 106/76 06/22/19 08:34 O2 Sat by Pulse Oximetry (%) Laboratory Last Values WBC 6.5 K/mm3 (4.0-10.0) 06/21/19 07:10 RBC 4.86 M/mm3 (4.00-5.60) 06/21/19 07:10 Hgb 15.1 GM/dL (11.7-16.9) 06/21/19 07:10 Hct 44.5 % (35.4-49) 06/21/19 07:10 MCV 91.7 fl (80-96) 06/21/19 07:10 MCH 31.2 pg (25.7-33.7) 06/21/19 07:10 MCHC 34.0 g/dl (32.0-35.9) 06/21/19 07:10 RDW 13.8 % (11.9-15.9) 06/21/19 07:10 Plt Count 253 K/MM3 (134-434) 06/21/19 07:10 MPV 8.5 fl (7.5-11.1) 06/21/19 07:10 Sodium 139 mmol/L (136-145) 06/21/19 07:10 Potassium 4.0 mmol/L (3.5-5.1) 06/21/19 07:10 Chloride 106 mmol/L (98-107) 06/21/19 07:10 Carbon Dioxide 28 mmol/L (21-32) 06/21/19 07:10 Anion Gap 5 MMOL/L (8-16) L 06/21/19 07:10 BUN 10.9 mg/dL (7-18) 06/21/19 07:10 Creatinine 0.8 mg/dL (0.55-1.3) 06/21/19 07:10 Est GFR (CKD-EPI)AfAm 125.92 06/21/19 07:10 Est GFR (CKD-EPI)NonAf 108.65 06/21/19 07:10 Random Glucose 89 mg/dL (74-106) 06/21/19 07:10 Calcium 8.8 mg/dL (8.5-10.1) 06/21/19 07:10 Total Bilirubin 0.5 mg/dL (0.2-1) 06/21/19 07:10 AST 19 U/L (15-37) 06/21/19 07:10 ALT 26 U/L (13-61) 06/21/19 07:10 Alkaline Phosphatase 77 U/L (45-117) 06/21/19 07:10 Total Protein 6.2 g/dl (6.4-8.2) L 06/21/19 07:10 Albumin 3.3 g/dl (3.4-5.0) L 06/21/19 07:10 RPR Titer Nonreactive (NONREACTIVE) 06/21/19 07:10 lab noted Assessment: 06/22/19 10:10 alcohol withdrawal Plan: librium regiment
[2019-06-22] MEDS: MELATONIN 5 MG TABLETS PO PRN (22:25)
[2019-06-22] MEDS: THIAMINE HCL 100 MG TABLET (FP) PO SCH (22:25)
[2019-06-22] MEDS: QUEtiapine FUMARATE 100 MG TABLET (FP) PO PRN (22:26)
[2019-06-23] MEDS ORDERED: chlordiazePOXIDE HCL 10 MG CAPSULE PO PRN
[2019-06-23] MEDS: chlordiazePOXIDE HCL 10 MG CAPSULE PO SCH ×4 (06:58→22:05)
--- NOTE | 2019-06-23 10:20 | PN ---
[facility] CIWA - CIWA Score Nausea/Vomitin-No Nausea/No Vomiting Muscle Tremors: 1-None Visible, but [place] Anxiety: 1-Mildly Anxious Agitation: 0-Normal Activity Paroxysmal Sweats: 1-Minimal Palms Moist Orientation: 0-Oriented Tacttile Disturbances: 0-None Auditory Disturbances: 0-None Visual Disturbances: 1-Very Mild Sensitivity Headache: 0-None Present CIWA-Ar Total Score: 4 S Progress Note (SOAP) Subjective: 44 years old male admitted on 06/20/19 for alcohol withdrawal sx management treating with librium detox regiment ate breakfast tolerated food and fluid well resting in bed limited conversation with staff Objective: 06/23/19 10:19 Vital Signs Temperature 96 F L 06/23/19 09:00 Pulse Rate 82 06/23/19 09:00 Respiratory Rate 18 06/23/19 09:00 Blood Pressure 99/66 06/23/19 09:00 O2 Sat by Pulse Oximetry (%) Laboratory Last Values WBC 6.5 K/mm3 (4.0-10.0) 06/21/19 07:10 RBC 4.86 M/mm3 (4.00-5.60) 06/21/19 07:10 Hgb 15.1 GM/dL (11.7-16.9) 06/21/19 07:10 Hct 44.5 % (35.4-49) 06/21/19 07:10 MCV 91.7 fl (80-96) 06/21/19 07:10 MCH 31.2 pg (25.7-33.7) 06/21/19 07:10 MCHC 34.0 g/dl (32.0-35.9) 06/21/19 07:10 RDW 13.8 % (11.9-15.9) 06/21/19 07:10 Plt Count 253 K/MM3 (134-434) 06/21/19 07:10 MPV 8.5 fl (7.5-11.1) 06/21/19 07:10 Sodium 139 mmol/L (136-145) 06/21/19 07:10 Potassium 4.0 mmol/L (3.5-5.1) 06/21/19 07:10 Chloride 106 mmol/L (98-107) 06/21/19 07:10 Carbon Dioxide 28 mmol/L (21-32) 06/21/19 07:10 Anion Gap 5 MMOL/L (8-16) L 06/21/19 07:10 BUN 10.9 mg/dL (7-18) 06/21/19 07:10 Creatinine 0.8 mg/dL (0.55-1.3) 06/21/19 07:10 Est GFR (CKD-EPI)AfAm 125.92 06/21/19 07:10 Est GFR (CKD-EPI)NonAf 108.65 06/21/19 07:10 Random Glucose 89 mg/dL (74-106) 06/21/19 07:10 Calcium 8.8 mg/dL (8.5-10.1) 06/21/19 07:10 Total Bilirubin 0.5 mg/dL (0.2-1) 06/21/19 07:10 AST 19 U/L (15-37) 06/21/19 07:10 ALT 26 U/L (13-61) 06/21/19 07:10 Alkaline Phosphatase 77 U/L (45-117) 06/21/19 07:10 Total Protein 6.2 g/dl (6.4-8.2) L 06/21/19 07:10 Albumin 3.3 g/dl (3.4-5.0) L 06/21/19 07:10 RPR Titer Nonreactive (NONREACTIVE) 06/21/19 07:10 lab noted Assessment: 06/23/19 10:19 alcohol withdrawal Plan: librium regiment
[2019-06-23] MEDS: NICOTINE 21 MG/24 HOURS TOPICAL PATCH TD SCH (10:25)
[2019-06-23] MEDS: METHYL SALICYLATE/MENTHOL OINT 30 GM TUBE TP SCH ×2 (10:26→22:06)
[2019-06-23] MEDS: PRENATAL VITAMINS W/ FOLIC ACID TABLET (FP) PO SCH (10:26)
[2019-06-23] MEDS: NICOTINE POLACRILEX 4 MG GUM BUC PRN ×2 (18:42→22:07)
[2019-06-23] MEDS: THIAMINE HCL 100 MG TABLET (FP) PO SCH (22:05)
[2019-06-23] MEDS: MELATONIN 5 MG TABLETS PO PRN (22:06)
[2019-06-23] MEDS: QUEtiapine FUMARATE 100 MG TABLET (FP) PO PRN (22:08)
[2019-06-24] MEDS: chlordiazePOXIDE HCL 10 MG CAPSULE PO SCH ×2 (05:58→18:03)
[2019-06-24] MEDS: NICOTINE 21 MG/24 HOURS TOPICAL PATCH TD SCH (10:25)
[2019-06-24] MEDS: METHYL SALICYLATE/MENTHOL OINT 30 GM TUBE TP SCH ×2 (10:25→22:33)
[2019-06-24] MEDS: PRENATAL VITAMINS W/ FOLIC ACID TABLET (FP) PO SCH (10:25)
[2019-06-24] MEDS: NICOTINE POLACRILEX 4 MG GUM BUC PRN ×2 (15:19→21:36)
--- NOTE | 2019-06-24 15:47 | PN ---
S CIWA - CIWA Score Nausea/Vomitin-No Nausea/No Vomiting Muscle Tremors: 1-None Visible, but [place] Anxiety: 1-Mildly Anxious Agitation: 0-Normal Activity Paroxysmal Sweats: No Perspiration Orientation: 0-Oriented Tacttile Disturbances: 0-None Auditory Disturbances: 0-None Visual Disturbances: 0-None Headache: 0-None Present CIWA-Ar Total Score: 2 [facility] Progress Note (SOAP) Subjective: 44 years old male admitted on 06/20/19 for alcohol withdrawal sx management treating with librium detox regiment feeling better today less tremor mild anxiety Objective: 06/24/19 15:46 Vital Signs Temperature 96.6 F L 06/24/19 12:40 Pulse Rate 80 06/24/19 12:40 Respiratory Rate 18 06/24/19 12:40 Blood Pressure 106/80 06/24/19 12:40 O2 Sat by Pulse Oximetry (%) Laboratory Last Values WBC 6.5 K/mm3 (4.0-10.0) 06/21/19 07:10 RBC 4.86 M/mm3 (4.00-5.60) 06/21/19 07:10 Hgb 15.1 GM/dL (11.7-16.9) 06/21/19 07:10 Hct 44.5 % (35.4-49) 06/21/19 07:10 MCV 91.7 fl (80-96) 06/21/19 07:10 MCH 31.2 pg (25.7-33.7) 06/21/19 07:10 MCHC 34.0 g/dl (32.0-35.9) 06/21/19 07:10 RDW 13.8 % (11.9-15.9) 06/21/19 07:10 Plt Count 253 K/MM3 (134-434) 06/21/19 07:10 MPV 8.5 fl (7.5-11.1) 06/21/19 07:10 Sodium 139 mmol/L (136-145) 06/21/19 07:10 Potassium 4.0 mmol/L (3.5-5.1) 06/21/19 07:10 Chloride 106 mmol/L (98-107) 06/21/19 07:10 Carbon Dioxide 28 mmol/L (21-32) 06/21/19 07:10 Anion Gap 5 MMOL/L (8-16) L 06/21/19 07:10 BUN 10.9 mg/dL (7-18) 06/21/19 07:10 Creatinine 0.8 mg/dL (0.55-1.3) 06/21/19 07:10 Est GFR (CKD-EPI)AfAm 125.92 06/21/19 07:10 Est GFR (CKD-EPI)NonAf 108.65 06/21/19 07:10 Random Glucose 89 mg/dL (74-106) 06/21/19 07:10 Calcium 8.8 mg/dL (8.5-10.1) 06/21/19 07:10 Total Bilirubin 0.5 mg/dL (0.2-1) 06/21/19 07:10 AST 19 U/L (15-37) 06/21/19 07:10 ALT 26 U/L (13-61) 06/21/19 07:10 Alkaline Phosphatase 77 U/L (45-117) 06/21/19 07:10 Total Protein 6.2 g/dl (6.4-8.2) L 06/21/19 07:10 Albumin 3.3 g/dl (3.4-5.0) L 06/21/19 07:10 RPR Titer Nonreactive (NONREACTIVE) 06/21/19 07:10 lab noted Assessment: 06/24/19 15:46 alcohol withdrawal Plan: librium regiment
[2019-06-24] MEDS: THIAMINE HCL 100 MG TABLET (FP) PO SCH (21:34)
[2019-06-24] MEDS: QUEtiapine FUMARATE 100 MG TABLET (FP) PO PRN (21:34)
[2019-06-24] MEDS: MELATONIN 5 MG TABLETS PO PRN (21:35)
[2019-06-25] MEDS ORDERED: chlordiazePOXIDE HCL 10 MG CAPSULE PO ONE (05:00)
[2019-06-25 09:45] VITALS: BP 125/77; PULSE 81; TEMP 96.7
[2019-06-25] MEDS: PRENATAL VITAMINS W/ FOLIC ACID TABLET (FP) PO SCH (10:02)
[2019-06-25] MEDS: NICOTINE 21 MG/24 HOURS TOPICAL PATCH TD SCH (10:03)
[2019-06-25] MEDS: METHYL SALICYLATE/MENTHOL OINT 30 GM TUBE TP SCH (10:04)
--- NOTE | 2019-06-25 15:33 | DS ---
[facility] Detox Discharge Summary Admission Date: 06/20/19 Discharge Date: 06/25/19 - History Present History: Alcohol Dependence Additional Comments: 44 years old male admitted on 06/20/19 for alcohol withdrawal sx management treated with librum detox regiment Mr Laurent has completed the librium regiment and tolerated well alert oriented x 3 respiratory clear lungs bilaterally on auscultation abdomen soft no rebound tenderness skin warm and dry Pertinent Past History: time for discharge 22 minutes - Physical Exam Results Vital Signs: Vital Signs Temperature 96.7 F L 06/25/19 08:46 Pulse Rate 81 06/25/19 08:46 Respiratory Rate 18 06/25/19 08:46 Blood Pressure 125/77 06/25/19 08:46 O2 Sat by Pulse Oximetry (%) Pertinent Admission Physical Exam Findings: alcohol withdrawal Laboratory Last Values WBC 6.5 K/mm3 (4.0-10.0) 06/21/19 07:10 RBC 4.86 M/mm3 (4.00-5.60) 06/21/19 07:10 Hgb 15.1 GM/dL (11.7-16.9) 06/21/19 07:10 Hct 44.5 % (35.4-49) 06/21/19 07:10 MCV 91.7 fl (80-96) 06/21/19 07:10 MCH 31.2 pg (25.7-33.7) 06/21/19 07:10 MCHC 34.0 g/dl (32.0-35.9) 06/21/19 07:10 RDW 13.8 % (11.9-15.9) 06/21/19 07:10 Plt Count 253 K/MM3 (134-434) 06/21/19 07:10 MPV 8.5 fl (7.5-11.1) 06/21/19 07:10 Sodium 139 mmol/L (136-145) 06/21/19 07:10 Potassium 4.0 mmol/L (3.5-5.1) 06/21/19 07:10 Chloride 106 mmol/L (98-107) 06/21/19 07:10 Carbon Dioxide 28 mmol/L (21-32) 06/21/19 07:10 Anion Gap 5 MMOL/L (8-16) L 06/21/19 07:10 BUN 10.9 mg/dL (7-18) 06/21/19 07:10 Creatinine 0.8 mg/dL (0.55-1.3) 06/21/19 07:10 Est GFR (CKD-EPI)AfAm 125.92 06/21/19 07:10 Est GFR (CKD-EPI)NonAf 108.65 06/21/19 07:10 Random Glucose 89 mg/dL (74-106) 06/21/19 07:10 Calcium 8.8 mg/dL (8.5-10.1) 06/21/19 07:10 Total Bilirubin 0.5 mg/dL (0.2-1) 06/21/19 07:10 AST 19 U/L (15-37) 06/21/19 07:10 ALT 26 U/L (13-61) 06/21/19 07:10 Alkaline Phosphatase 77 U/L (45-117) 06/21/19 07:10 Total Protein 6.2 g/dl (6.4-8.2) L 06/21/19 07:10 Albumin 3.3 g/dl (3.4-5.0) L 06/21/19 07:10 RPR Titer Nonreactive (NONREACTIVE) 06/21/19 07:10 Vital Signs Temperature 96.7 F L 06/25/19 08:46 Pulse Rate 81 06/25/19 08:46 Respiratory Rate 18 06/25/19 08:46 Blood Pressure 125/77 06/25/19 08:46 O2 Sat by Pulse Oximetry (%) lab noted - Treatment Hospital Course: Detox Protocol Followed, Detoxed Safely, Responded well, Discharged Condition Good, Rehab Referral Accepted Patient has Accepted [facility] - Medication Discharge Medications: Ambulatory Orders NK [No Known Home Medication] 06/20/19 - Diagnosis (1) Alcohol dependence with uncomplicated withdrawal Status: Acute (2) HTN (hypertension) Status: Chronic Qualifiers: Hypertension type: unspecified Qualified Code(s): I10 - Essential (primary ) hypertension (3) Nicotine dependence Status: Acute Qualifiers: Nicotine product type: cigarettes Substance use status: in withdrawal Qualified Code(s): F17.213 - Nicotine dependence, cigarettes, with withdrawal - AMA Did Patient Leave Against Medical Advice: No CIWA Score - CIWA Score Nausea/Vomitin-No Nausea/No Vomiting Muscle Tremors: 1-None Visible, but [place] Anxiety: 0-No Anxiety, at Ease Agitation: 0-Normal Activity Paroxysmal Sweats: No Perspiration Orientation: 0-Oriented Tacttile Disturbances: 0-None Auditory Disturbances: 0-None Visual Disturbances: 0-None Headache: 0-None Present CIWA-Ar Total Score: 1
== END 2019-06-25 12:12 | disposition other institution (70) | DRG 774 ==
LOC: YASAS 08:09 → Y3N 09:30
PROVIDERS: ADMIT Allergy & Immunology; ATTEND Allergy & Immunology
PROC: HZ2ZZZZ Detoxification Services for Substance Abuse Treatment (ICD-10-PCS; principal; 2019-06-20)
DX: F10.230 Alcohol dependence with withdrawal, uncomplicated (principal); F14.20 Cocaine dependence, uncomplicated; F12.20 Cannabis dependence, uncomplicated; F17.210 Nicotine dependence, cigarettes, uncomplicated; F32.9 Major depressive disorder, single episode, unspecified; I10 Essential (primary) hypertension; G47.00 Insomnia, unspecified; M54.5 Low back pain; G89.29 Other chronic pain
CPT/HCPCS: 36415; 80053; 85027; 86593

== ENCOUNTER 2019-06-25 12:31 | Inpatient (IN) | payer OTHER ==
[2019-06-25] MEDS ORDERED: LOPERAMIDE HCL 2 MG CAPSULE PO PRN (13:15)
[2019-06-25] MEDS ORDERED: IBUPROFEN 400 MG TABLET (FP) PO PRN (13:15)
[2019-06-25] MEDS ORDERED: P-EPHED 60MG/TRIPROLIDI 2.5MG TABLET PO PRN (13:15)
[2019-06-25] MEDS ORDERED: MENTHOL/PHENOL 1 EACH UD MM PRN (13:15)
[2019-06-25] MEDS ORDERED: MAG HYDROX/AL HYDROX/SIMETH 30 ML UNIT-DOSE CUP PO PRN (13:15)
[2019-06-25] MEDS ORDERED: MAGNESIUM CITRATE 300 ML BOTTLE PO PRN (13:15)
[2019-06-25] MEDS ORDERED: ACETAMINOPHEN 325 MG TABLET (FP) PO PRN (13:15)
[2019-06-25] MEDS ORDERED: MAGNESIUM HYDROX 2400MG/30ML ORAL SUSPENSION 30 ML CUP PO PRN (13:15)
[2019-06-25] MEDS ORDERED: guaiFENesin 200 MG/10 ML 10 ML UNIT-DOSE CUPS PO PRN (13:15)
--- NOTE | 2019-06-25 13:18 | HP ---
[facility] Rehab Assess/Revision - Admission History Admitted to Rehab [facility]: [facility] - Vital signs Vital Signs: Vital Signs Period Temp Pulse Resp BP Sys/Ross Pulse Ox Last 24 Hr 98.2 F 82 18 110/72 - Findings Detox History & Physical reviewed: Yes Concur with findings: Yes Comments/Additional Findings: 44 y/o admitted to rehab from [address] [place] [id number]. Hx JOANN- Alcohol,cocaine,marijuana. PMHx:Denies. Psych Hx:Depression/ Anxiety/Insomnia- Seroquel. Alert o x 3. nad.Ambulating with steady gait. Extremities/skin:no edema;skin intact; Tattoo behind left calf. Inpatient Rehab Admission - Rehab Decision to Admit Inpatient rehab admission?: Yes - Initial Determination Are CD services needed?: Yes Free of communicable disease: Yes Not in need of hospitalization: Yes - Rehab Admission Criteria Previous failed treatment: Yes Poor recovery environment: Yes Comorbidities: Yes Lacks judgement: Yes Patient is meeting Inpatient Rehab admission criteria:: Yes
[2019-06-25] MEDS: NICOTINE POLACRILEX 4 MG GUM BUC PRN ×2 (13:55→21:47)
--- NOTE | 2019-06-25 16:13 | CONSULT ---
[facility] Psychiatric Consult - Data Date of interview: 06/25/19 Admission source: [facility] Identifying data: Patient is a 42 year old single male without children, unemployed, homeless, and is not currently receiving SSI. This is one of multiple admissions for patient. Patient admitted to for alcohol and cocaine dependence. Substance Abuse History: Smoking Cessation. Smoking history: Current every day smoker. Have you smoked in the past 12 months: Yes. Aproximately how many cigarettes per day: 40. Cigars Per Day: 0. Hx Chewing Tobacco Use: No. Initiated information on smoking cessation: Yes. 'Breaking Loose' booklet given : 06/20/19 (give on floor). - Substance & Tx. History. Hx Alcohol Use: Yes. Hx Substance Use: Yes. Substance Use Type: Alcohol, Cocaine. Hx Substance Use Treatment: Yes (detox, rehab). - Substances abused. Alcohol. Substance route: Oral. Frequency: Daily. Amount used: 10 (24oz Cans) Beers. Age of first use: 17. Date of last use: 06/20/19. Cocaine. Substance route: Smoking. Frequency: Daily. Amount used: $200. Age of first use: 18. Date of last use: 06/20/19. Marijuana/Hashish. Substance route: Smoking. Frequency : Daily. Amount used: 1/2 oz week. Age of first use: 15. Date of last use: Medical History: Significant for hypertension and appendectomy at age 18. Psychiatric History: Patient denies history of psychiatric hospitalization, outpatient care, and suicide attempt. At present patient reports difficulty sleeping, anxiety, and sadness due to financial instability and lack of residence. Patient denies thoughts or urges to hurt self or others. Physical/Sexual Abuse/Trauma History: denies. Mental Status Exam - Mental Status Exam Alert and Oriented to: Time, Place, Person Cognitive Function: Good Patient Appearance: Well Groomed Mood: Sad Affect: Mood Congruent Patient Behavior: Appropriate, Cooperative Speech Pattern: Appropriate Voice Loudness: Normal Thought Process: Goal Oriented Thought Disorder: Not Present Hallucinations: Denies Suicidal Ideation: Denies Homicidal Ideation: Denies Insight/Judgement: Poor Sleep: Poorly Appetite: Fair Muscle strength/Tone: Normal Gait/Station: Normal Psychiatric Findings - Problem List ([place] 1, 2,3) (1) Substance induced mood disorder Current Visit: Yes Status: Acute (2) Alcohol dependence Current Visit: Yes Status: Acute (3) Cocaine dependence Current Visit: Yes Status: Acute Qualifiers: Substance use status: uncomplicated Qualified Code(s): F14.20 - Cocaine dependence, uncomplicated (4) Nicotine dependence Current Visit: Yes Status: Acute Qualifiers: Nicotine product type: cigarettes Substance use status: in withdrawal Qualified Code(s): F17.213 - Nicotine dependence, cigarettes, with withdrawal (5) Substance-induced anxiety disorder Current Visit: Yes Status: Acute (6) Substance-induced sleep disorder Current Visit: Yes Status: Acute - Initial Treatment Plan Initial Treatment Plan: Psychoeducation provided. Rehab in progress. Will order Belsomra 10mg HS PRN. Benefits and side effects discussed. Verbal consent given.
[2019-06-25] MEDS: THIAMINE HCL 100 MG TABLET (FP) PO SCH (21:45)
[2019-06-25] MEDS: MELATONIN 5 MG TABLETS PO PRN (21:45)
[2019-06-25] MEDS: SUVOREXANT 10 MG TABLET PO PRN (21:46)
[2019-06-26] MEDS: NICOTINE POLACRILEX 4 MG GUM BUC PRN ×3 (06:25→18:07)
[2019-06-26] MEDS: NICOTINE 21 MG/24 HOURS TOPICAL PATCH TD SCH (10:30)
[2019-06-26] MEDS: PRENATAL VITAMINS W/ FOLIC ACID TABLET (FP) PO SCH (10:30)
[2019-06-26] MEDS: THIAMINE HCL 100 MG TABLET (FP) PO SCH (21:19)
[2019-06-26] MEDS: SUVOREXANT 10 MG TABLET PO PRN (21:19)
[2019-06-27] MEDS: NICOTINE 21 MG/24 HOURS TOPICAL PATCH TD SCH (10:04)
[2019-06-27] MEDS: PRENATAL VITAMINS W/ FOLIC ACID TABLET (FP) PO SCH (10:04)
[2019-06-27] MEDS: NICOTINE POLACRILEX 4 MG GUM BUC PRN ×3 (13:52→21:38)
[2019-06-27] MEDS: SUVOREXANT 10 MG TABLET PO PRN (21:37)
[2019-06-27] MEDS: THIAMINE HCL 100 MG TABLET (FP) PO SCH (21:37)
[2019-06-27] MEDS: hydrOXYzine PAMOATE 50 MG CAPSULE (FP) PO PRN (21:37)
[2019-06-28] MEDS: NICOTINE POLACRILEX 4 MG GUM BUC PRN ×4 (07:29→20:06)
[2019-06-28] MEDS: NICOTINE 21 MG/24 HOURS TOPICAL PATCH TD SCH (10:49)
[2019-06-28] MEDS: PRENATAL VITAMINS W/ FOLIC ACID TABLET (FP) PO SCH (10:49)
[2019-06-28] MEDS: hydrOXYzine PAMOATE 50 MG CAPSULE (FP) PO PRN (21:36)
[2019-06-28] MEDS: SUVOREXANT 10 MG TABLET PO PRN (21:36)
[2019-06-28] MEDS: THIAMINE HCL 100 MG TABLET (FP) PO SCH (21:36)
[2019-06-29] MEDS: NICOTINE POLACRILEX 4 MG GUM BUC PRN ×4 (06:23→21:33)
[2019-06-29] MEDS: NICOTINE 21 MG/24 HOURS TOPICAL PATCH TD SCH (10:27)
[2019-06-29] MEDS: PRENATAL VITAMINS W/ FOLIC ACID TABLET (FP) PO SCH (10:27)
[2019-06-29] MEDS: THIAMINE HCL 100 MG TABLET (FP) PO SCH (21:32)
[2019-06-29] MEDS: hydrOXYzine PAMOATE 50 MG CAPSULE (FP) PO PRN (21:33)
[2019-06-29] MEDS: MELATONIN 5 MG TABLETS PO PRN (21:33)
[2019-06-30] MEDS: NICOTINE POLACRILEX 4 MG GUM BUC PRN ×5 (06:17→22:57)
[2019-06-30] MEDS: PRENATAL VITAMINS W/ FOLIC ACID TABLET (FP) PO SCH (10:24)
[2019-06-30] MEDS: NICOTINE 21 MG/24 HOURS TOPICAL PATCH TD SCH (10:24)
[2019-06-30] MEDS: THIAMINE HCL 100 MG TABLET (FP) PO SCH (21:26)
[2019-06-30] MEDS: hydrOXYzine PAMOATE 50 MG CAPSULE (FP) PO PRN (21:27)
[2019-06-30] MEDS: MELATONIN 5 MG TABLETS PO PRN (21:27)
[2019-07-01] MEDS: NICOTINE 21 MG/24 HOURS TOPICAL PATCH TD SCH (10:17)
[2019-07-01] MEDS: PRENATAL VITAMINS W/ FOLIC ACID TABLET (FP) PO SCH (10:17)
[2019-07-01] MEDS: NICOTINE POLACRILEX 4 MG GUM BUC PRN ×4 (12:40→23:35)
[2019-07-01] MEDS: METHOCARBAMOL 500 MG TABLET PO PRN ×2 (13:47→23:13)
--- NOTE | 2019-07-01 13:54 | PN ---
S Progress Note (SOAP) Subjective: Pt c/o left upper back pain around his shoulder blade when he moves. Reports he has been "exercising" for the past week. Objective: 07/01/19 13:54 Vital Signs - 24 hr 07/01/19 07/01/19 07/01/19 00:30 03:46 06:31 Temperature 97.8 F Pulse Rate 78 Respiratory 16 18 18 Rate Blood Pressure 116/85 Alert o x 3 nad oob ambulating with steady gait cardiac:s1 s2, rrr lungs:cta,krzysztof. abdomen;soft,+bs,flat,nt extremities:no edema; All Extremities Active ROM, LUE active ROM all directions , tender to palp left scapula area. Assessment: 07/01/19 13:54 r/o inflammation of cavity lining r/o costochondritis Plan: Maintain safety Motrin 400 mg po Q6H prn as directed Robaxin 500 mg po TID prn Increase po fluids pt to report to staff if not improving.
[2019-07-01] MEDS: hydrOXYzine PAMOATE 50 MG CAPSULE (FP) PO PRN (21:27)
[2019-07-01] MEDS: MELATONIN 5 MG TABLETS PO PRN (21:27)
[2019-07-01] MEDS: THIAMINE HCL 100 MG TABLET (FP) PO SCH (21:27)
[2019-07-02] MEDS: PRENATAL VITAMINS W/ FOLIC ACID TABLET (FP) PO SCH (10:29)
[2019-07-02] MEDS: NICOTINE 21 MG/24 HOURS TOPICAL PATCH TD SCH (10:29)
[2019-07-02] MEDS: NICOTINE POLACRILEX 4 MG GUM BUC PRN ×3 (13:06→20:32)
[2019-07-02] MEDS: THIAMINE HCL 100 MG TABLET (FP) PO SCH (21:27)
[2019-07-02] MEDS: hydrOXYzine PAMOATE 50 MG CAPSULE (FP) PO PRN (21:27)
[2019-07-02] MEDS: METHOCARBAMOL 500 MG TABLET PO PRN (21:27)
[2019-07-02] MEDS: MELATONIN 5 MG TABLETS PO PRN (21:28)
[2019-07-03] MEDS: PRENATAL VITAMINS W/ FOLIC ACID TABLET (FP) PO SCH (10:32)
[2019-07-03] MEDS: NICOTINE 21 MG/24 HOURS TOPICAL PATCH TD SCH (10:32)
[2019-07-03] MEDS: hydrOXYzine PAMOATE 50 MG CAPSULE (FP) PO PRN ×3 (10:33→21:27)
[2019-07-03] MEDS: METHOCARBAMOL 500 MG TABLET PO PRN ×2 (12:57→21:57)
[2019-07-03] MEDS: NICOTINE POLACRILEX 4 MG GUM BUC PRN ×4 (12:58→20:40)
[2019-07-03] MEDS: THIAMINE HCL 100 MG TABLET (FP) PO SCH (21:27)
[2019-07-03] MEDS: MELATONIN 5 MG TABLETS PO PRN (21:28)
[2019-07-04] MEDS: NICOTINE 21 MG/24 HOURS TOPICAL PATCH TD SCH (10:45)
[2019-07-04] MEDS: PRENATAL VITAMINS W/ FOLIC ACID TABLET (FP) PO SCH (10:45)
[2019-07-04] MEDS: METHOCARBAMOL 500 MG TABLET PO PRN ×3 (10:46→22:09)
[2019-07-04] MEDS: hydrOXYzine PAMOATE 50 MG CAPSULE (FP) PO PRN ×3 (10:46→22:10)
[2019-07-04] MEDS: NICOTINE POLACRILEX 4 MG GUM BUC PRN ×3 (12:51→22:11)
[2019-07-04] MEDS: MELATONIN 5 MG TABLETS PO PRN (22:07)
[2019-07-04] MEDS: THIAMINE HCL 100 MG TABLET (FP) PO SCH (22:07)
[2019-07-05] MEDS: NICOTINE POLACRILEX 4 MG GUM BUC PRN ×4 (00:57→20:54)
[2019-07-05] MEDS: PRENATAL VITAMINS W/ FOLIC ACID TABLET (FP) PO SCH (10:26)
[2019-07-05] MEDS: NICOTINE 21 MG/24 HOURS TOPICAL PATCH TD SCH ×2 (10:26→10:44)
[2019-07-05] MEDS: METHOCARBAMOL 500 MG TABLET PO PRN (21:54)
[2019-07-05] MEDS: THIAMINE HCL 100 MG TABLET (FP) PO SCH (21:54)
[2019-07-05] MEDS: hydrOXYzine PAMOATE 50 MG CAPSULE (FP) PO PRN (21:54)
[2019-07-05] MEDS: MELATONIN 5 MG TABLETS PO PRN (21:54)
[2019-07-06] MEDS: PRENATAL VITAMINS W/ FOLIC ACID TABLET (FP) PO SCH (10:49)
[2019-07-06] MEDS: NICOTINE 21 MG/24 HOURS TOPICAL PATCH TD SCH (10:49)
[2019-07-06] MEDS: NICOTINE POLACRILEX 4 MG GUM BUC PRN ×4 (11:45→20:42)
[2019-07-06] MEDS: METHOCARBAMOL 500 MG TABLET PO PRN (14:00)
[2019-07-06] MEDS: hydrOXYzine PAMOATE 50 MG CAPSULE (FP) PO PRN ×3 (14:00→22:54)
[2019-07-06] MEDS: THIAMINE HCL 100 MG TABLET (FP) PO SCH (21:27)
[2019-07-06] MEDS: MELATONIN 5 MG TABLETS PO PRN (21:27)
[2019-07-07] MEDS: NICOTINE POLACRILEX 4 MG GUM BUC PRN ×5 (07:35→21:36)
[2019-07-07] MEDS: PRENATAL VITAMINS W/ FOLIC ACID TABLET (FP) PO SCH (10:36)
[2019-07-07] MEDS: NICOTINE 21 MG/24 HOURS TOPICAL PATCH TD SCH ×2 (10:36→10:37)
[2019-07-07] MEDS: METHOCARBAMOL 500 MG TABLET PO PRN (12:48)
[2019-07-07] MEDS: hydrOXYzine PAMOATE 50 MG CAPSULE (FP) PO PRN ×2 (12:48→17:32)
--- NOTE | 2019-07-07 15:38 | DS ---
[facility] Rehab Discharge Summary - [facility] Rehab Discharge Summary Admission Date: 06/25/19 Discharge Date: 07/08/19 - History Present History: Alcohol dependence, Cocaine dependence Additional Comments: Pt is a 44 y/o male with a hx of JOANN admitted to rehab and discharging on 07/08/19. Pt Pertinent Past History: Denies PMHx on admission Psych Hx:Mood disorder/Anxiety/Sleeping disorder - Discharge Physical Exam Vital Signs: Vital Signs Temperature 97.2 F L 07/07/19 07:34 Pulse Rate 80 07/07/19 07:34 Respiratory Rate 16 07/07/19 07:34 Blood Pressure 99/64 07/07/19 07:34 O2 Sat by Pulse Oximetry (%) - Treatment Discharge Condition: Discharge condition good - Medication Discharge Medications: Ambulatory Orders NK [No Known Home Medication] 06/20/19 - Medication-Assisted Treatment (MAT) Medication-Assisted Treatment (MAT): No - Discharge Instructions Diet, activity, other medical instructions: Diet:Regular Activity: oob ad teja Other medical instructions:follow up with CD aftercare recommendations as scheduled. follow up with primary care within 1-2 weeks after discharge. - Diagnosis (1) Alcohol dependence Status: Chronic Qualifiers: Substance use status: uncomplicated Qualified Code(s): F10.20 - Alcohol dependence, uncomplicated (2) Cannabis abuse Status: Chronic (3) Cocaine dependence Status: Chronic Qualifiers: Substance use status: uncomplicated Qualified Code(s): F14.20 - Cocaine dependence, uncomplicated (4) Nicotine dependence Status: Acute Qualifiers: Nicotine product type: cigarettes Substance use status: uncomplicated Qualified Code(s): F17.210 - Nicotine dependence, cigarettes, uncomplicated (5) Chronic back pain Status: Chronic Qualifiers: Back pain location: low back pain Back pain laterality: bilateral Sciatica presence: without sciatica Qualified Code(s): M54.5 - Low back pain; G89.29 - Other chronic pain - Follow-up Referral Minutes to complete discharge: 25 - AMA Did Patient Leave Against Medical Advice: No
[2019-07-07] MEDS: MELATONIN 5 MG TABLETS PO PRN (21:35)
[2019-07-07] MEDS: THIAMINE HCL 100 MG TABLET (FP) PO SCH (21:35)
[2019-07-08] MEDS: NICOTINE POLACRILEX 4 MG GUM BUC PRN (06:20)
[2019-07-08 07:20] VITALS: BP 93/74; PULSE 76; TEMP 97.4
[2019-07-08] MEDS: PRENATAL VITAMINS W/ FOLIC ACID TABLET (FP) PO SCH (09:21)
[2019-07-08] MEDS: NICOTINE 21 MG/24 HOURS TOPICAL PATCH TD SCH (09:22)
--- NOTE | 2019-07-08 11:46 | PN ---
[facility] Progress Note Note: pt was discharged today as scheduled. Vital Signs - 24 hr 07/08/19 07/08/19 07/08/19 00:30 03:30 07:19 Temperature 97.4 F L Pulse Rate 76 Respiratory 18 16 16 Rate Blood Pressure 93/74 Alert o x 3,denies s/h/i nad oob ambulating with steady gait A/P Medically stable D/c pt d/w pt to follow up with all treatment recommendations.
== END 2019-07-08 09:30 | disposition home or self-care (01) | DRG 772 ==
LOC: YASAS 12:31 → Y5N 12:34
PROVIDERS: ADMIT Allergy & Immunology; ATTEND Allergy & Immunology
PROC: HZ42ZZZ Group Counseling for Substance Abuse Treatment, Cognitive-Behavioral (ICD-10-PCS; principal; 2019-06-25)
DX: F10.20 Alcohol dependence, uncomplicated (principal); F14.20 Cocaine dependence, uncomplicated; F12.20 Cannabis dependence, uncomplicated; F17.210 Nicotine dependence, cigarettes, uncomplicated; F19.24 Other psychoactive substance dependence with psychoactive substance-induced mood disorder; F19.280 Other psychoactive substance dependence with psychoactive substance-induced anxiety disorder; F19.282 Other psychoactive substance dependence with psychoactive substance-induced sleep disorder; I10 Essential (primary) hypertension; M54.5 Low back pain; G89.29 Other chronic pain

== ENCOUNTER 2019-10-17 15:06 | Inpatient (IN) | payer OTHER ==
[2019-10-17] MEDS ORDERED: guaiFENesin 200 MG/10 ML 10 ML UNIT-DOSE CUPS PO PRN (16:01)
[2019-10-17] MEDS ORDERED: MAGNESIUM HYDROX 2400MG/30ML ORAL SUSPENSION 30 ML CUP PO PRN (16:01)
[2019-10-17] MEDS ORDERED: ACETAMINOPHEN 325 MG TABLET (FP) PO PRN (16:01)
[2019-10-17] MEDS ORDERED: MAGNESIUM CITRATE 300 ML BOTTLE PO PRN (16:01)
[2019-10-17] MEDS ORDERED: LOPERAMIDE HCL 2 MG CAPSULE PO PRN (16:01)
[2019-10-17] MEDS ORDERED: MENTHOL/PHENOL 1 EACH UD MM PRN (16:01)
[2019-10-17] MEDS ORDERED: P-EPHED 60MG/TRIPROLIDI 2.5MG TABLET PO PRN (16:01)
[2019-10-17] MEDS ORDERED: MAG HYDROX/AL HYDROX/SIMETH 30 ML UNIT-DOSE CUP PO PRN (16:01)
[2019-10-17] MEDS ORDERED: IBUPROFEN 400 MG TABLET (FP) PO PRN (16:01)
--- NOTE | 2019-10-17 16:02 | HP ---
[facility] Rehab Assess/Revision - Admission History Admitted to Rehab [facility]: [facility] Date of Admission to Rehab: 10/17/19 - Vital signs Vital Signs: stable - Findings Detox History & Physical reviewed: Yes Concur with findings: Yes Inpatient Rehab Admission - Rehab Decision to Admit Inpatient rehab admission?: Yes - Initial Determination Are CD services needed?: Yes Free of communicable disease: Yes Not in need of hospitalization: Yes - Rehab Admission Criteria Previous failed treatment: Yes Poor recovery environment: Yes Comorbidities: Yes Lacks judgement: Yes Patient is meeting Inpatient Rehab admission criteria:: Yes
[2019-10-17] MEDS: NICOTINE POLACRILEX 2 MG GUM BUC PRN (19:28)
[2019-10-17] MEDS: THIAMINE HCL 100 MG TABLET (FP) PO SCH (21:11)
[2019-10-17] MEDS: MELATONIN 5 MG TABLETS PO SCH (21:11)
[2019-10-18] MEDS: PRENATAL VITAMINS W/ FOLIC ACID TABLET (FP) PO SCH (09:55)
[2019-10-18] MEDS: NICOTINE 7 MG/24 HOURS TOPICAL PATCH TD SCH (10:24)
[2019-10-18] MEDS: NICOTINE POLACRILEX 2 MG GUM BUC PRN ×2 (12:14→18:18)
[2019-10-18] MEDS: MELATONIN 5 MG TABLETS PO SCH (21:37)
[2019-10-18] MEDS: THIAMINE HCL 100 MG TABLET (FP) PO SCH (21:37)
[2019-10-19] MEDS: PRENATAL VITAMINS W/ FOLIC ACID TABLET (FP) PO SCH (10:13)
[2019-10-19] MEDS: NICOTINE 21 MG/24 HOURS TOPICAL PATCH TD SCH (10:45)
[2019-10-19] MEDS: NICOTINE 7 MG/24 HOURS TOPICAL PATCH TD SCH (10:47)
[2019-10-19] MEDS: THIAMINE HCL 100 MG TABLET (FP) PO SCH (21:13)
[2019-10-19] MEDS: NICOTINE POLACRILEX 2 MG GUM BUC PRN (21:13)
[2019-10-19] MEDS: MELATONIN 5 MG TABLETS PO SCH (21:13)
[2019-10-20] MEDS: NICOTINE 21 MG/24 HOURS TOPICAL PATCH TD SCH (10:09)
[2019-10-20] MEDS: PRENATAL VITAMINS W/ FOLIC ACID TABLET (FP) PO SCH (10:09)
[2019-10-20] MEDS: hydrOXYzine PAMOATE 25 MG CAPSULE (FP) PO PRN ×2 (10:11→21:23)
[2019-10-20] MEDS: METHOCARBAMOL 500 MG TABLET PO SCH ×2 (18:42→21:23)
[2019-10-20] MEDS: LIDOCAINE PATCH REMOVAL MC SCH (21:23)
[2019-10-20] MEDS: THIAMINE HCL 100 MG TABLET (FP) PO SCH (21:23)
[2019-10-20] MEDS: MELATONIN 5 MG TABLETS PO SCH (21:23)
[2019-10-20] MEDS: NICOTINE POLACRILEX 2 MG GUM BUC PRN (21:24)
[2019-10-21] MEDS: hydrOXYzine PAMOATE 25 MG CAPSULE (FP) PO PRN ×3 (10:28→21:38)
[2019-10-21] MEDS: NICOTINE 21 MG/24 HOURS TOPICAL PATCH TD SCH (10:28)
[2019-10-21] MEDS: PRENATAL VITAMINS W/ FOLIC ACID TABLET (FP) PO SCH (10:28)
[2019-10-21] MEDS: METHOCARBAMOL 500 MG TABLET PO SCH ×4 (10:28→21:38)
[2019-10-21] MEDS: LIDOCAINE 5% TOPICAL PATCH TP SCH (10:30)
[2019-10-21] MEDS: NICOTINE POLACRILEX 2 MG GUM BUC PRN ×3 (13:50→21:38)
[2019-10-21] MEDS: THIAMINE HCL 100 MG TABLET (FP) PO SCH (21:37)
[2019-10-21] MEDS: MELATONIN 5 MG TABLETS PO SCH (21:37)
[2019-10-21] MEDS: LIDOCAINE PATCH REMOVAL MC SCH (21:38)
[2019-10-22] MEDS: hydrOXYzine PAMOATE 25 MG CAPSULE (FP) PO PRN ×3 (10:22→21:11)
[2019-10-22] MEDS: METHOCARBAMOL 500 MG TABLET PO SCH ×4 (10:22→21:11)
[2019-10-22] MEDS: LIDOCAINE 5% TOPICAL PATCH TP SCH (10:22)
[2019-10-22] MEDS: NICOTINE 21 MG/24 HOURS TOPICAL PATCH TD SCH (10:22)
[2019-10-22] MEDS: PRENATAL VITAMINS W/ FOLIC ACID TABLET (FP) PO SCH (10:22)
[2019-10-22] MEDS: NICOTINE POLACRILEX 2 MG GUM BUC PRN ×3 (15:35→21:12)
[2019-10-22] MEDS: MELATONIN 5 MG TABLETS PO SCH (21:11)
[2019-10-22] MEDS: LIDOCAINE PATCH REMOVAL MC SCH (21:11)
[2019-10-22] MEDS: THIAMINE HCL 100 MG TABLET (FP) PO SCH (21:11)
[2019-10-23] MEDS: NICOTINE POLACRILEX 2 MG GUM BUC PRN ×4 (08:35→21:39)
[2019-10-23] MEDS: PRENATAL VITAMINS W/ FOLIC ACID TABLET (FP) PO SCH (09:56)
[2019-10-23] MEDS: METHOCARBAMOL 500 MG TABLET PO SCH ×4 (09:56→21:38)
[2019-10-23] MEDS: NICOTINE 21 MG/24 HOURS TOPICAL PATCH TD SCH (09:56)
[2019-10-23] MEDS: LIDOCAINE 5% TOPICAL PATCH TP SCH (09:56)
[2019-10-23] MEDS: hydrOXYzine PAMOATE 25 MG CAPSULE (FP) PO PRN ×3 (09:56→21:38)
[2019-10-23] MEDS: THIAMINE HCL 100 MG TABLET (FP) PO SCH (21:38)
[2019-10-23] MEDS: MELATONIN 5 MG TABLETS PO SCH (21:38)
[2019-10-23] MEDS: LIDOCAINE PATCH REMOVAL MC SCH (21:39)
[2019-10-24] MEDS: hydrOXYzine PAMOATE 25 MG CAPSULE (FP) PO PRN ×3 (06:47→21:25)
[2019-10-24] MEDS: NICOTINE POLACRILEX 2 MG GUM BUC PRN ×3 (06:48→21:26)
[2019-10-24] MEDS: METHOCARBAMOL 500 MG TABLET PO SCH ×4 (10:30→21:25)
[2019-10-24] MEDS: PRENATAL VITAMINS W/ FOLIC ACID TABLET (FP) PO SCH (10:30)
[2019-10-24] MEDS: LIDOCAINE 5% TOPICAL PATCH TP SCH (10:31)
[2019-10-24] MEDS: NICOTINE 21 MG/24 HOURS TOPICAL PATCH TD SCH (10:31)
[2019-10-24] MEDS: MELATONIN 5 MG TABLETS PO SCH (21:25)
[2019-10-24] MEDS: THIAMINE HCL 100 MG TABLET (FP) PO SCH (21:25)
[2019-10-24] MEDS: LIDOCAINE PATCH REMOVAL MC SCH (21:26)
[2019-10-25] MEDS: NICOTINE POLACRILEX 2 MG GUM BUC PRN ×4 (05:55→21:53)
[2019-10-25] MEDS: METHOCARBAMOL 500 MG TABLET PO SCH ×4 (11:47→21:53)
[2019-10-25] MEDS: PRENATAL VITAMINS W/ FOLIC ACID TABLET (FP) PO SCH (11:47)
[2019-10-25] MEDS: LIDOCAINE 5% TOPICAL PATCH TP SCH (11:47)
[2019-10-25] MEDS: NICOTINE 21 MG/24 HOURS TOPICAL PATCH TD SCH (11:47)
[2019-10-25] MEDS: hydrOXYzine PAMOATE 25 MG CAPSULE (FP) PO PRN ×2 (15:19→21:53)
[2019-10-25] MEDS: THIAMINE HCL 100 MG TABLET (FP) PO SCH (21:53)
[2019-10-25] MEDS: MELATONIN 5 MG TABLETS PO SCH (21:53)
[2019-10-25] MEDS: LIDOCAINE PATCH REMOVAL MC SCH (21:54)
[2019-10-26] MEDS: NICOTINE POLACRILEX 2 MG GUM BUC PRN ×4 (07:03→21:29)
[2019-10-26] MEDS: METHOCARBAMOL 500 MG TABLET PO SCH ×4 (10:11→21:28)
[2019-10-26] MEDS: NICOTINE 21 MG/24 HOURS TOPICAL PATCH TD SCH (10:11)
[2019-10-26] MEDS: hydrOXYzine PAMOATE 25 MG CAPSULE (FP) PO PRN ×2 (10:11→21:28)
[2019-10-26] MEDS: PRENATAL VITAMINS W/ FOLIC ACID TABLET (FP) PO SCH (10:11)
[2019-10-26] MEDS: LIDOCAINE 5% TOPICAL PATCH TP SCH (10:12)
[2019-10-26] MEDS: THIAMINE HCL 100 MG TABLET (FP) PO SCH (21:27)
[2019-10-26] MEDS: LIDOCAINE PATCH REMOVAL MC SCH (21:28)
[2019-10-26] MEDS: MELATONIN 5 MG TABLETS PO SCH (21:28)
[2019-10-27] MEDS: NICOTINE POLACRILEX 2 MG GUM BUC PRN ×4 (07:12→21:44)
[2019-10-27] MEDS: METHOCARBAMOL 500 MG TABLET PO SCH ×4 (09:56→21:44)
[2019-10-27] MEDS: NICOTINE 21 MG/24 HOURS TOPICAL PATCH TD SCH (09:56)
[2019-10-27] MEDS: hydrOXYzine PAMOATE 25 MG CAPSULE (FP) PO PRN (09:56)
[2019-10-27] MEDS: PRENATAL VITAMINS W/ FOLIC ACID TABLET (FP) PO SCH (09:56)
[2019-10-27] MEDS: LIDOCAINE 5% TOPICAL PATCH TP SCH (09:56)
[2019-10-27] MEDS: THIAMINE HCL 100 MG TABLET (FP) PO SCH (21:43)
[2019-10-27] MEDS: MELATONIN 5 MG TABLETS PO SCH (21:44)
[2019-10-27] MEDS: LIDOCAINE PATCH REMOVAL MC SCH (21:44)
[2019-10-28] MEDS: NICOTINE POLACRILEX 2 MG GUM BUC PRN ×4 (06:21→21:21)
[2019-10-28] MEDS: METHOCARBAMOL 500 MG TABLET PO SCH ×4 (10:02→21:21)
[2019-10-28] MEDS: PRENATAL VITAMINS W/ FOLIC ACID TABLET (FP) PO SCH (10:02)
[2019-10-28] MEDS: LIDOCAINE 5% TOPICAL PATCH TP SCH (10:03)
[2019-10-28] MEDS: NICOTINE 21 MG/24 HOURS TOPICAL PATCH TD SCH (10:03)
[2019-10-28] MEDS: hydrOXYzine PAMOATE 25 MG CAPSULE (FP) PO PRN ×2 (10:05→16:38)
[2019-10-28] MEDS: THIAMINE HCL 100 MG TABLET (FP) PO SCH (21:21)
[2019-10-28] MEDS: MELATONIN 5 MG TABLETS PO SCH (21:21)
[2019-10-28] MEDS: LIDOCAINE PATCH REMOVAL MC SCH (21:21)
[2019-10-29] MEDS: NICOTINE POLACRILEX 2 MG GUM BUC PRN ×5 (07:30→21:44)
[2019-10-29] MEDS: LIDOCAINE 5% TOPICAL PATCH TP SCH (09:53)
[2019-10-29] MEDS: hydrOXYzine PAMOATE 25 MG CAPSULE (FP) PO PRN ×2 (09:53→14:00)
[2019-10-29] MEDS: METHOCARBAMOL 500 MG TABLET PO SCH ×4 (09:53→21:43)
[2019-10-29] MEDS: NICOTINE 21 MG/24 HOURS TOPICAL PATCH TD SCH (09:53)
[2019-10-29] MEDS: PRENATAL VITAMINS W/ FOLIC ACID TABLET (FP) PO SCH (09:53)
--- NOTE | 2019-10-29 14:11 | CONSULT ---
[facility] Psychiatric Consult - Data Date of interview: 10/29/19 Admission source: [facility] Identifying data: Patient is a 44 year old single Caucausian male, without children, unemployed, homeless, and is not receiving financial assistance. This is one of multiple admissions for patient. Patient admitted to [facility] for treatment of alcohol and cocaine dependence. Substance Abuse History: Smoking Cessation. Smoking history: Current every day smoker. Have you smoked in the past 12 months: Yes. Aproximately how many cigarettes per day: 40. Cigars Per Day: 0. Hx Chewing Tobacco Use: No. Initiated information on smoking cessation: Yes. 'Breaking Loose' booklet given: 10/13/19. - Substances abused. Alcohol. Substance route: Oral. Frequency: Daily. Amount used: 8-10 beers. Age of first use: 16. Date of last use: 10/13/19. Marijuana/Hashish. Substance route: Inhalation. Frequency: Daily. Amount used: 1/8 ounce. Age of first use: 15. Date of last use: 10/12/19 Medical History: Significant for chronic back pain and appendectomy. Psychiatric History: Patient denies history of psychiatric hospitalization, outpatient care, suicide attempt. At present patient reports difficulty sleeping. Physical/Sexual Abuse/Trauma History: denies. Mental Status Exam - Mental Status Exam Alert and Oriented to: Time, Place, Person Cognitive Function: Good Patient Appearance: Well Groomed Mood: Hopeful Affect: Appropriate Patient Behavior: Appropriate, Cooperative Speech Pattern: Appropriate Voice Loudness: Normal Thought Process: Intact, Goal Oriented Thought Disorder: Not Present Hallucinations: Denies Suicidal Ideation: Denies Homicidal Ideation: Denies Insight/Judgement: Poor Sleep: Poorly Appetite: Fair Muscle strength/Tone: Normal Gait/Station: Normal Psychiatric Findings - Problem List ([place] 1, 2,3) (1) Alcohol dependence with uncomplicated withdrawal Current Visit: Yes Status: Acute (2) Cannabis abuse Current Visit: Yes Status: Acute (3) Substance-induced sleep disorder Current Visit: Yes Status: Acute - Initial Treatment Plan Initial Treatment Plan: Psychoeducation provided. Detoxification in progress. Will order Belsomra 10mg HS PRN. Benefits and side effects discussed. Verbal consent given.
[2019-10-29] MEDS: THIAMINE HCL 100 MG TABLET (FP) PO SCH (21:43)
[2019-10-29] MEDS: MELATONIN 5 MG TABLETS PO SCH (21:43)
[2019-10-29] MEDS: LIDOCAINE PATCH REMOVAL MC SCH (21:43)
[2019-10-29] MEDS: SUVOREXANT 10 MG TABLET PO PRN (21:44)
[2019-10-30] MEDS: NICOTINE POLACRILEX 2 MG GUM BUC PRN ×3 (06:09→21:21)
[2019-10-30] MEDS: LIDOCAINE 5% TOPICAL PATCH TP SCH (10:30)
[2019-10-30] MEDS: NICOTINE 21 MG/24 HOURS TOPICAL PATCH TD SCH (10:30)
[2019-10-30] MEDS: METHOCARBAMOL 500 MG TABLET PO SCH ×4 (10:30→21:19)
[2019-10-30] MEDS: PRENATAL VITAMINS W/ FOLIC ACID TABLET (FP) PO SCH (10:30)
[2019-10-30] MEDS: hydrOXYzine PAMOATE 25 MG CAPSULE (FP) PO PRN ×2 (14:23→21:20)
[2019-10-30] MEDS: MELATONIN 5 MG TABLETS PO SCH (21:19)
[2019-10-30] MEDS: THIAMINE HCL 100 MG TABLET (FP) PO SCH (21:19)
[2019-10-30] MEDS: LIDOCAINE PATCH REMOVAL MC SCH (21:19)
[2019-10-30] MEDS: SUVOREXANT 10 MG TABLET PO PRN (21:20)
[2019-10-31] MEDS: NICOTINE POLACRILEX 2 MG GUM BUC PRN ×3 (06:15→22:16)
[2019-10-31] MEDS: hydrOXYzine PAMOATE 25 MG CAPSULE (FP) PO PRN ×3 (10:22→22:16)
[2019-10-31] MEDS: NICOTINE 21 MG/24 HOURS TOPICAL PATCH TD SCH (10:22)
[2019-10-31] MEDS: PRENATAL VITAMINS W/ FOLIC ACID TABLET (FP) PO SCH (10:22)
[2019-10-31] MEDS: METHOCARBAMOL 500 MG TABLET PO SCH ×4 (10:22→22:15)
[2019-10-31] MEDS: LIDOCAINE 5% TOPICAL PATCH TP SCH (10:23)
[2019-10-31] MEDS: MELATONIN 5 MG TABLETS PO SCH (22:15)
[2019-10-31] MEDS: THIAMINE HCL 100 MG TABLET (FP) PO SCH (22:15)
[2019-10-31] MEDS: LIDOCAINE PATCH REMOVAL MC SCH (22:56)
[2019-11-01] MEDS: NICOTINE POLACRILEX 2 MG GUM BUC PRN ×5 (07:02→21:21)
[2019-11-01] MEDS: hydrOXYzine PAMOATE 25 MG CAPSULE (FP) PO PRN ×2 (09:36→21:21)
[2019-11-01] MEDS: METHOCARBAMOL 500 MG TABLET PO SCH ×4 (09:36→21:20)
[2019-11-01] MEDS: PRENATAL VITAMINS W/ FOLIC ACID TABLET (FP) PO SCH (09:36)
[2019-11-01] MEDS: LIDOCAINE 5% TOPICAL PATCH TP SCH (09:36)
[2019-11-01] MEDS: NICOTINE 21 MG/24 HOURS TOPICAL PATCH TD SCH (09:36)
--- NOTE | 2019-11-01 13:25 | PN ---
[facility] Progress Note Note: Psychiatric nurse practitioner note: Belsomra 10mg renewed X3 days. Verbal consent given.
[2019-11-01] MEDS: THIAMINE HCL 100 MG TABLET (FP) PO SCH (21:20)
[2019-11-01] MEDS: LIDOCAINE PATCH REMOVAL MC SCH (21:20)
[2019-11-01] MEDS: MELATONIN 5 MG TABLETS PO SCH (21:20)
[2019-11-01] MEDS ORDERED: SUVOREXANT 10 MG TABLET PO PRN (22:00)
[2019-11-02] MEDS: NICOTINE POLACRILEX 2 MG GUM BUC PRN (06:11)
[2019-11-02 07:05] VITALS: BP 124/73; PULSE 55; TEMP 97.3
--- NOTE | 2019-11-02 09:17 | DS ---
[facility] Rehab Discharge Summary - [facility] Rehab Discharge Summary Admission Date: 10/17/19 Discharge Date: 11/02/19 - Discharge Physical Exam Vital Signs: Vital Signs Temperature 97.3 F L 11/02/19 06:30 Pulse Rate 55 L 11/02/19 06:30 Respiratory Rate 16 11/02/19 06:30 Blood Pressure 124/73 11/02/19 06:30 O2 Sat by Pulse Oximetry (%) 98 11/02/19 06:30 Home Medications Medication Instructions Recorded NK [No Known Home Medication] 06/20/19 ROS: DENIES CHEST PAIN, SOB, FEVER, SHAKES AND ALCOHOL CRAVINGS. PE: ALERT AND ORIENTED X 3 SKIN WARM AND DRY IN NO ACUTE DISTRESS EXT FULL ROM, AMB AD ABDULLAHI NO TREMORS DENIES SI/HI A/P: ALCOHOL DEPENDENCE HX OF COCAINE USE PATIENT MEDICALLY STABLE FOR DISCHARGE AFTERCARE ARRANGED FOR [facility] OTP - Treatment Discharge Condition: Discharge condition good Hospital Course: PATIENT COMPLETED REHAB TODAY. HE IS MEDICALLY STABLE AND DENIES SI/HI. PATIENT ATTENDED GROUP MEETINGS WHILE IN REHAB AND 1:1 SESSIONS WITH COUNSELOR. AFTERCARE ARRANGED FOR [facility] OTP AND PATIENT STATES HE WILL MAKE HIS OWN APPT. HE REPORTS MOTIVATIONS TO MAINTAIN SOBRIETY AND MEDICALLY ADVISED TO FOLLOW UP WITH PCP RECOMMENDED. - Medication Discharge Medications: Ambulatory Orders NK [No Known Home Medication] 06/20/19 - Medication-Assisted Treatment (MAT) Medication-Assisted Treatment (MAT): No MAT Follow-up Referral: [facility], APPT TO BE ARRANGED BY PATIENT,. - Discharge Instructions Diet, activity, other medical instructions: Diet: REG Activity: TOLERATED Other medical instructions: F/U WITH PCP RECOMMENDED - Follow-up Referral Minutes to complete discharge: 35 - AMA Did Patient Leave Against Medical Advice: No
[2019-11-02] MEDS: NICOTINE 21 MG/24 HOURS TOPICAL PATCH TD SCH (09:45)
[2019-11-02] MEDS: LIDOCAINE 5% TOPICAL PATCH TP SCH (09:45)
[2019-11-02] MEDS: PRENATAL VITAMINS W/ FOLIC ACID TABLET (FP) PO SCH (09:45)
[2019-11-02] MEDS: METHOCARBAMOL 500 MG TABLET PO SCH (09:52)
== END 2019-11-02 10:02 | disposition home or self-care (01) | DRG 772 ==
LOC: YASAS 15:06 → Y3W 15:07
PROVIDERS: ADMIT Allergy & Immunology; ATTEND Allergy & Immunology
PROC: HZ42ZZZ Group Counseling for Substance Abuse Treatment, Cognitive-Behavioral (ICD-10-PCS; principal; 2019-10-17)
DX: F10.20 Alcohol dependence, uncomplicated (principal); F14.20 Cocaine dependence, uncomplicated; F12.20 Cannabis dependence, uncomplicated; F17.210 Nicotine dependence, cigarettes, uncomplicated; F19.282 Other psychoactive substance dependence with psychoactive substance-induced sleep disorder; M54.89 Other dorsalgia; G89.29 Other chronic pain; Z56.0 Unemployment, unspecified; Z59.0 Homelessness

== ENCOUNTER 2019-12-01 08:19 | Inpatient (IN) | payer OTHER ==
[2019-12-01] MEDS ORDERED: IBUPROFEN 400 MG TABLET (FP) PO ONE ×2 (09:11→09:16)
--- NOTE | 2019-12-01 09:18 | [facility].RME ---
Substance Use & Tx History - Substance Use History Alcohol Substance amount: 10 beers 24 oz beers Frequency of use: Daily Substance route: Oral Date of Last Use: 11/30/19 Nicotine Substance amount: 1 pack Frequency of use: Daily Substance route: Oral Date of Last Use: 12/01/19 Physical/Psych/Mental Status - Behavior General Behavior: Increased activity (restlessness, agitation) Eye Contact: Normal - Cooperativeness Cooperativeness: Cooperative - Thinking Thought Processes: Tight, Logical, Goal Directed - Physical Health Problems Is patient presently having any pain?: No Does patient presently have any injuries (include location): No Does patient currently have a fever: No Is patient : No CIWA Nausea/Vomitin Muscle Tremors: 3 Anxiety: 3 Agitation: 2 Paroxysmal Sweats: 1-Minimal Palms Moist Orientation: 0-Oriented Tacttile Disturbances: 0-None Auditory Disturbances: 0-None Visual Disturbances: 0-None Headache: 2-Mild CIWA-Ar Total Score: 14
[2019-12-01 09:27] VITALS: BMI 23.7
--- NOTE | 2019-12-01 10:02 | HP ---
CIWA Score Nausea/Vomitin Muscle Tremors: 3 Anxiety: 3 Agitation: 2 Paroxysmal Sweats: 1-Minimal Palms Moist Orientation: 0-Oriented Tacttile Disturbances: 0-None Auditory Disturbances: 0-None Visual Disturbances: 0-None Headache: 2-Mild CIWA-Ar Total Score: 14 - Admission Criteria OASAS Guidelines: Admission for Medically Managed Detox: Requires at least one of the followin. CIWA greater than 12 2. Seizures within the past 24 hours 3. Delirium tremens within the past 24 hours 4. Hallucinations within the past 24 hours 5. Acute intervention needed for co occurring medical disorder 6. Acute intervention needed for co occurring psychiatric disorder 7. Severe withdrawal that cannot be handled at a lower level of care (continued vomiting, continued diarrhea, abnormal vital signs) requiring intravenous medication and/or fluids 8. Admitting History and Physical - Admission Chief Complaint: Mr. Laurent is a 44 yo man who presents to [facility] requesting detox from alcohol use. History of Present Illness: Mr. Laurent is a 44 yo man who presents to [facility] requesting detox from alcohol use. He was last here between October 12 and October 16 of this year. He completed detox and rehab. He was told to call [facility] for follow up care. He did not follow through with that plan and relapsed soon after discharge. 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 Nicotine Substance amount: 1 pack Frequency of use: Daily Substance route: Oral Date of Last Use: 12/01/19 Began at age 16y History Source: Patient Limitations to Obtaining History: No Limitations - Past Medical History Gastrointestinal: Yes: Crohn's Disease Psych: Yes: Other (insomnia) Musculoskeletal: Yes: Chronic low back pain - Past Surgical History Past Surgical History: Yes: Appendectomy - Smoking History Smoking history: Current every day smoker Have you smoked in the past 12 months: Yes Aproximately how many cigarettes per day: 40 - Alcohol/Substance Use Hx Alcohol Use: Yes Number of Drinks Daily: 20 History of Substance Use: reports: Cocaine Date of Last Use: 06/19/19 - Social History ADL: Independent 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 History of Recent Travel: No Admission ROS BHS - HPI Allergies/Adverse Reactions: Allergies Allergy/AdvReac Type Severity Reaction Status Date / Time No Known Allergies Allergy Verified 12/01/19 09:15 Exam Limitations: No Limitations - Ebola screening Have you traveled outside of the country in the last 21 days: No Have you been sick,other than usual withdrawal symptoms: No Do you have a fever: No - Review of Systems Constitutional: No Symptoms Reported EENT: reports: Blurred Vision (needs glasses/does not have) Respiratory: reports: No Symptoms reported Cardiac: reports: No Symptoms Reported GI: reports: Nausea : reports: No Symptoms Reported Musculoskeletal: reports: Back Pain (chronic) Integumentary: reports: Other (fell while intoxicated 2 days ago, scrapes on wrists, denies head trauma or LOC) Neuro: reports: Headache (bifrontal, pounding, associates with withdrawal) Psychiatric: reports: Anxious Patient History - Patient Medical History Hx Anemia: No Hx Asthma: No Hx Chronic Obstructive Pulmonary Disease (COPD): No Hx Cancer: No Hx Cardiac Disorders: No Hx Congestive Heart Failure: No Hx Hypertension: No Hx Hypercholesterolemia: No Hx Pacemaker: No HX Cerebrovascular Accident: No Hx Seizures: No Hx Dementia: No Hx Diabetes: No Hx Gastrointestinal Disorders: No Hx Liver Disease: No Hx Genitourinary Disorders: No Hx Sexually Transmitted Disorders: No Hx Renal Disease (ESRD): No Hx Thyroid Disease: No Hx Human Immunodeficiency Virus (HIV): No (Negative 2019) Hx Hepatitis C: No Hx Depression: No Hx Suicide Attempt: No Hx Bipolar Disorder: No Hx Schizophrenia: No - Patient Surgical History Past Surgical History: Yes Hx Neurologic Surgery: No Hx Cataract Extraction: No Hx Cardiac Surgery: No Hx Lung Surgery: No Hx Breast Surgery: No Hx Breast Biopsy: No Hx Abdominal Surgery: No Hx Appendectomy: Yes (20 yrs ago) Hx Cholecystectomy: No Hx Genitourinary Surgery: No Hx Section: No Hx Orthopedic Surgery: No Anesthesia Reaction: No - PPD History Implanted On Prior [facility] Admission?: No Date: 01/23/19 Results: 0 mm. - Reproductive History Patient : (N/A) - Smoking Cessation Smoking history: Current every day smoker Have you smoked in the past 12 months: Yes Aproximately how many cigarettes per day: 20 Cigars Per Day: 0 Hx Chewing Tobacco Use: No Initiated information on smoking cessation: Yes 'Breaking Loose' booklet given: 12/01/19 - Substances abused Alcohol Substance route: Oral Frequency: Daily Amount used: 10- 24 oz of beer Age of first use: 27 Date of last use: 11/30/19 Admission Physical Exam [facility] - Vital Signs Vital Signs: Vital Signs - 24 hr 12/01/19 09:16 Temperature 98.3 F Pulse Rate 84 Respiratory 18 Rate Blood Pressure 136/91 - Physical General Appearance: Yes: Nourished, Disheveled, Mild Distress HEENTM: Yes: EOMI, Hearing grossly Normal, Normocephalic, Normal Voice Respiratory: Yes: Lungs Clear, Normal Breath Sounds, No Respiratory Distress, No Accessory Muscle Use Neck: Yes: Within Normal Limits, Supple Breast: Yes: Breast Exam Deferred Cardiology: Yes: Regular Rhythm, Regular Rate, S1, S2 Abdominal: Yes: Non Tender, Flat, Soft, Tenderness (right upper quadrant) Genitourinary: Yes: Other (deferred) Back: Yes: Normal Inspection Musculoskeletal: Yes: full range of Motion, Gait Steady Extremities: Yes: Normal Inspection Neurological: Yes: Alert, Motor Strength 5/5, Normal Response Integumentary: Yes: Normal Color, Dry, Warm, Other (superficial abrasion right lateral wrist) - Diagnostic (1) Alcohol dependence with uncomplicated withdrawal Current Visit: No Status: Acute (2) Nicotine dependence Current Visit: No Status: Acute Qualifiers: Nicotine product type: cigarettes Substance use status: in withdrawal Qualified Code(s): F17.213 - Nicotine dependence, cigarettes, with withdrawal (3) Abrasion of wrist, right Current Visit: Yes Status: Acute Qualifiers: Encounter type: initial encounter Qualified Code(s): S60.811A - Abrasion of right wrist, initial encounter Cleared for Admission [facility] - Detox or Rehab [facility] Level of Care: Medically Managed Detox Regimen/Protocol: Librium Breathalyzer - Breathalyzer Breathalyzer: 0 Urine Drug Screen - Test Device Lot number: [id number] Expiration date: 11/30/21 - Control Is test valid?: Yes - Results Drug screen NEGATIVE: Yes Urine drug screen results: THC-Marijuana Inpatient Rehab Admission - Rehab Decision to Admit Inpatient rehab admission?: No
[2019-12-01] MEDS ORDERED: MAGNESIUM CITRATE 300 ML BOTTLE PO PRN (10:05)
[2019-12-01] MEDS ORDERED: ACETAMINOPHEN 325 MG TABLET (FP) PO PRN ×2 (10:05)
[2019-12-01] MEDS ORDERED: MAGNESIUM HYDROX 2400MG/30ML ORAL SUSPENSION 30 ML CUP PO PRN (10:05)
[2019-12-01] MEDS ORDERED: chlordiazePOXIDE HCL 25 MG CAPSULE PO PRN (10:05)
[2019-12-01] MEDS ORDERED: BISMUTH SUBSALICYLATE 262 MG/15 ML BTL PO PRN (10:05)
[2019-12-01] MEDS ORDERED: METHOCARBAMOL 500 MG TABLET PO PRN (10:05)
[2019-12-01] MEDS ORDERED: MENTHOL/PHENOL 1 EACH UD MM PRN (10:05)
[2019-12-01] MEDS ORDERED: IBUPROFEN 400 MG TABLET (FP) PO PRN (10:05)
[2019-12-01] MEDS ORDERED: ONDANSETRON *ODT* 4 MG TABLET SL PRN (10:05)
[2019-12-01] MEDS: chlordiazePOXIDE HCL 25 MG CAPSULE PO SCH ×3 (11:02→22:48)
[2019-12-01] MEDS: BACITRACIN 0.9 GM PACKET TP SCH (11:03)
[2019-12-01] MEDS: hydrOXYzine PAMOATE 25 MG CAPSULE (FP) PO SCH ×3 (14:00→22:48)
[2019-12-01 14:30] LABS: HEMATOCRIT 45.3 % (35.4-49); HEMOGLOBIN 15.4 GM/dL (11.7-16.9); MCHC 33.9 g/dl (32.0-35.9); MEAN CELL VOLUME 91.3 fl (80-96); MEAN PLT VOLUME 8.9 fl (7.5-11.1); PLATELET COUNT 236 K/MM3 (134-434); RBC 4.96 M/mm3 (4.00-5.60); RDW 13.4 % (11.9-15.9); WHITE BLOOD COUNT 11.2 K/mm3 (4.0-10.0)
[2019-12-01 15:07] LABS: POTASSIUM 4.1 mmol/L (3.5-5.1)
[2019-12-01 15:15] LABS: ALBUMIN 4.2 g/dl (3.4-5.0); BILIRUBIN,TOTAL 0.5 mg/dL (0.2-1); BLOOD UREA NITROGEN 11.8 mg/dL (7-18); CALCIUM 8.9 mg/dL (8.5-10.1); CREATININE 0.9 mg/dL (0.55-1.3); TOT PROT 7.9 g/dl (6.4-8.2)
[2019-12-01] MEDS: MAG HYDROX/AL HYDROX/SIMETH 30 ML UNIT-DOSE CUP PO PRN (18:10)
[2019-12-01] MEDS: NICOTINE POLACRILEX 2 MG GUM BUC PRN (18:11)
[2019-12-01] MEDS: THIAMINE HCL 100 MG TABLET (FP) PO SCH (22:48)
[2019-12-01] MEDS: MELATONIN 5 MG TABLETS PO SCH (22:48)
[2019-12-02] MEDS: hydrOXYzine PAMOATE 25 MG CAPSULE (FP) PO SCH ×5 (05:39→22:11)
[2019-12-02] MEDS: chlordiazePOXIDE HCL 25 MG CAPSULE PO SCH ×4 (05:39→22:11)
[2019-12-02] MEDS: NICOTINE 7 MG/24 HOURS TOPICAL PATCH TD SCH (10:02)
[2019-12-02] MEDS: PRENATAL VITAMINS W/ FOLIC ACID TABLET (FP) PO SCH (10:03)
[2019-12-02] MEDS: BACITRACIN 0.9 GM PACKET TP SCH (10:04)
--- NOTE | 2019-12-02 14:25 | PN ---
S CIWA - CIWA Score Nausea/Vomitin-Mild Nausea/No Vomiting Muscle Tremors: 2 Anxiety: 2 Agitation: 2 Paroxysmal Sweats: 1-Minimal Palms Moist Orientation: 0-Oriented Tacttile Disturbances: 1-Very Mild Itch/Numbness Auditory Disturbances: 0-None Visual Disturbances: 2-Mild Sensitivity Headache: 1-Very Mild CIWA-Ar Total Score: 12 BHS Progress Note (SOAP) Subjective: 44 years old male admitted on 12/01/19 for alcohol withdrawal sx management treating with librium detox regimebt ate breakfast and lunch in room feeling tired prefers to resting today limited conversation with staff bmi 23.7 ensure 120ml po tid with meals Objective: 12/02/19 14:27 Vital Signs - 24 hr 12/01/19 12/01/19 12/02/19 16:27 20:56 06:15 Temperature 97.7 F 99.1 F 99.5 F Pulse Rate 86 97 H 103 H Respiratory 16 18 18 Rate Blood Pressure 119/78 123/89 138/86 O2 Sat by Pulse 100 96 Oximetry (%) 12/02/19 12/02/19 08:35 12:36 Temperature 98.9 F 97.4 F L Pulse Rate 97 H 74 Respiratory 16 18 Rate Blood Pressure 122/83 127/67 O2 Sat by Pulse 96 96 Oximetry (%) Laboratory Tests 12/01/19 12/01/19 12/01/19 10:30 10:30 10:30 WBC 11.2 H RBC 4.96 Hgb 15.4 Hct 45.3 MCV 91.3 MCH 31.0 MCHC 33.9 RDW 13.4 Plt Count 236 D MPV 8.9 Sodium 133 L Potassium 4.1 Chloride 100 Carbon Dioxide 24 Anion Gap 9 BUN 11.8 Creatinine 0.9 Est GFR (CKD-EPI)AfAm 119.97 Est GFR (CKD-EPI)NonAf 103.51 Random Glucose 114 H Calcium 8.9 Total Bilirubin 0.5 AST 32 ALT 35 Alkaline Phosphatase 96 Total Protein 7.9 Albumin 4.2 Syphilis Serology Non-reactive COVID-19 ([facility]) 12/01/19 10:30 WBC RBC Hgb Hct MCV MCH MCHC RDW Plt Count MPV Sodium Potassium Chloride Carbon Dioxide Anion Gap BUN Creatinine Est GFR (CKD-EPI)AfAm Est GFR (CKD-EPI)NonAf Random Glucose Calcium Total Bilirubin AST ALT Alkaline Phosphatase Total Protein Albumin Syphilis Serology COVID-19 ([facility]) Not detected u/a order lab noted fasting pending glucose 12/02/19 14:30 Assessment: 12/02/19 14:30 alcohol withdrawal Plan: librium regiment
[2019-12-02] MEDS: MAG HYDROX/AL HYDROX/SIMETH 30 ML UNIT-DOSE CUP PO PRN (17:36)
[2019-12-02] MEDS: NICOTINE POLACRILEX 2 MG GUM BUC PRN (19:46)
[2019-12-02] MEDS: MELATONIN 5 MG TABLETS PO SCH (22:11)
[2019-12-02] MEDS: THIAMINE HCL 100 MG TABLET (FP) PO SCH (22:11)
[2019-12-03] MEDS: chlordiazePOXIDE HCL 25 MG CAPSULE PO SCH ×2 (06:24→10:40)
[2019-12-03] MEDS: hydrOXYzine PAMOATE 25 MG CAPSULE (FP) PO SCH ×2 (06:24→10:41)
--- NOTE | 2019-12-03 10:34 | PN ---
S CIWA - CIWA Score Nausea/Vomitin-Mild Nausea/No Vomiting Muscle Tremors: 2 Anxiety: 2 Agitation: 1-Slight > Activity Paroxysmal Sweats: No Perspiration Orientation: 0-Oriented Tacttile Disturbances: 1-Very Mild Itch/Numbness Auditory Disturbances: 0-None Visual Disturbances: 2-Mild Sensitivity Headache: 1-Very Mild CIWA-Ar Total Score: 10 BHS Progress Note (SOAP) Subjective: 44 years old male admitted on 12/01/19 for alcohol withdrawal sx management treating with librium detox regiment mr rgullon states that libirum makes him sleepy discontinue vistaril adjusting libirum dosage Objective: 12/03/19 10:44 Vital Signs - 24 hr 12/02/19 12/02/19 12/02/19 12:36 16:42 20:39 Temperature 97.4 F L 97.8 F 98.4 F Pulse Rate 74 93 H 110 H Respiratory 18 18 20 Rate Blood Pressure 127/67 124/85 140/90 O2 Sat by Pulse 96 97 Oximetry (%) 12/03/19 12/03/19 06:18 08:38 Temperature 97.2 F L 97.5 F L Pulse Rate 55 L 84 Respiratory 18 18 Rate Blood Pressure 112/80 103/66 O2 Sat by Pulse 97 Oximetry (%) Laboratory Tests 12/01/19 12/01/19 12/01/19 10:30 10:30 10:30 WBC 11.2 H RBC 4.96 Hgb 15.4 Hct 45.3 MCV 91.3 MCH 31.0 MCHC 33.9 RDW 13.4 Plt Count 236 D MPV 8.9 Sodium 133 L Potassium 4.1 Chloride 100 Carbon Dioxide 24 Anion Gap 9 BUN 11.8 Creatinine 0.9 Est GFR (CKD-EPI)AfAm 119.97 Est GFR (CKD-EPI)NonAf 103.51 Random Glucose 114 H Calcium 8.9 Total Bilirubin 0.5 AST 32 ALT 35 Alkaline Phosphatase 96 Total Protein 7.9 Albumin 4.2 Syphilis Serology Non-reactive COVID-19 ([facility]) 12/01/19 10:30 WBC RBC Hgb Hct MCV MCH MCHC RDW Plt Count MPV Sodium Potassium Chloride Carbon Dioxide Anion Gap BUN Creatinine Est GFR (CKD-EPI)AfAm Est GFR (CKD-EPI)NonAf Random Glucose Calcium Total Bilirubin AST ALT Alkaline Phosphatase Total Protein Albumin Syphilis Serology COVID-19 ([facility]) Not detected lab noted Assessment: 12/03/19 10:45 alcohol withdrawal Plan: librium regiment
[2019-12-03] MEDS: NICOTINE 7 MG/24 HOURS TOPICAL PATCH TD SCH (10:41)
[2019-12-03] MEDS: PRENATAL VITAMINS W/ FOLIC ACID TABLET (FP) PO SCH (10:41)
[2019-12-03] MEDS: BACITRACIN 0.9 GM PACKET TP SCH (10:41)
[2019-12-03] MEDS: NICOTINE POLACRILEX 2 MG GUM BUC PRN ×2 (15:25→17:57)
[2019-12-03] MEDS: chlordiazePOXIDE HCL 10 MG CAPSULE PO SCH ×2 (17:57→22:03)
[2019-12-03] MEDS: MAG HYDROX/AL HYDROX/SIMETH 30 ML UNIT-DOSE CUP PO PRN (19:14)
[2019-12-03] MEDS: MELATONIN 5 MG TABLETS PO SCH (22:03)
[2019-12-03] MEDS: THIAMINE HCL 100 MG TABLET (FP) PO SCH (22:03)
[2019-12-04] MEDS ORDERED: chlordiazePOXIDE HCL 10 MG CAPSULE PO PRN
[2019-12-04] MEDS ORDERED: chlordiazePOXIDE HCL 10 MG CAPSULE PO SCH (05:00)
[2019-12-04] MEDS: chlordiazePOXIDE 5 MG CAPSULE PO SCH ×3 (07:19→22:05)
--- NOTE | 2019-12-04 09:26 | PN ---
[facility] CIWA - CIWA Score Nausea/Vomitin-No Nausea/No Vomiting Muscle Tremors: None Anxiety: 1-Mildly Anxious Agitation: 0-Normal Activity Paroxysmal Sweats: No Perspiration Orientation: 0-Oriented Tacttile Disturbances: 0-None Auditory Disturbances: 0-None Visual Disturbances: 0-None Headache: 0-None Present CIWA-Ar Total Score: 1 BHS Progress Note (SOAP) Subjective: No complaints, asking about ability to dry wet pants Objective: 12/04/19 09:24 PE Gnl: WDWN, in no distress MS: nl mentation Motor: moves limbs well Coord: nl Gait: steady Laboratory Tests 12/01/19 12/01/19 12/01/19 10:30 10:30 10:30 WBC 11.2 H RBC 4.96 Hgb 15.4 Hct 45.3 MCV 91.3 MCH 31.0 MCHC 33.9 RDW 13.4 Plt Count 236 D MPV 8.9 Sodium 133 L Potassium 4.1 Chloride 100 Carbon Dioxide 24 Anion Gap 9 BUN 11.8 Creatinine 0.9 Est GFR (CKD-EPI)AfAm 119.97 Est GFR (CKD-EPI)NonAf 103.51 Random Glucose 114 H Calcium 8.9 Total Bilirubin 0.5 AST 32 ALT 35 Alkaline Phosphatase 96 Total Protein 7.9 Albumin 4.2 Syphilis Serology Non-reactive COVID-19 ([facility]) 12/01/19 10:30 WBC RBC Hgb Hct MCV MCH MCHC RDW Plt Count MPV Sodium Potassium Chloride Carbon Dioxide Anion Gap BUN Creatinine Est GFR (CKD-EPI)AfAm Est GFR (CKD-EPI)NonAf Random Glucose Calcium Total Bilirubin AST ALT Alkaline Phosphatase Total Protein Albumin Syphilis Serology COVID-19 ([facility]) Not detected Home Medication List Medication Instructions Recorded Confirmed Type NK [No Known Home Medication] 06/20/19 12/01/19 History Active Medications Generic Name Dose Route Start Last Admin Trade Name Freq PRN Reason Stop Dose Admin Acetaminophen 650 mg 12/01/19 10:05 Tylenol - PO Q6H PRN PAIN LEVEL 4 - 6 Acetaminophen 650 mg 12/01/19 10:05 Tylenol - PO Q6H PRN FEVER Al Hydroxide/Mg Hydroxide 30 ml 12/01/19 10:05 12/03/19 19:14 Mylanta Oral Suspension - PO 30 ml Q6H PRN Administration DYSPEPSIA Bacitracin 0.9 gm 12/01/19 10:15 12/03/19 10:41 Bacitracin - TP Not Given DAILY [facility] Bismuth Subsalicylate 30 ml 12/01/19 10:05 Pepto-Bismol Liquid - PO Q1H PRN DIARRHEA Chlordiazepoxide HCl 10 mg 12/04/19 00:00 Librium - PO 12/05/19 00:00 Q4H PRN WITHDRAWAL(CONT SUBST) Chlordiazepoxide HCl 5 mg 12/06/19 05:00 Librium - PO 12/06/19 05:01 ONCE@0500 ONE Chlordiazepoxide HCl 5 mg 12/05/19 05:00 Librium - PO 12/05/19 17:01 Q12H [facility] Chlordiazepoxide HCl 5 mg 12/04/19 05:00 12/04/19 07:19 Librium - PO 12/04/19 21:01 Not Given Q8H [facility] Eucalyptus/Menthol/Phenol/Sorbitol 1 each 12/01/19 10:05 Cepastat Lozenge - MM 12/07/19 10:05 Q4H PRN SORE THROAT Ibuprofen 400 mg 12/01/19 10:05 Motrin - PO Q6H PRN PAIN LEVEL 1 - 3 Magnesium Citrate 300 ml 12/01/19 10:05 Citroma - PO Q48H PRN CONSTIPATION Magnesium Hydroxide 30 ml 12/01/19 10:05 Milk Of Magnesia - PO PRN PRN CONSTIPATION Melatonin 5 mg 12/01/19 22:00 12/03/19 22:03 Melatonin PO 5 mg HS [facility] Administration Methocarbamol 500 mg 12/01/19 10:05 Robaxin - PO 12/07/19 10:05 Q6H PRN MUSCLE SPASMS Nicotine 7 mg 12/02/19 10:00 12/03/19 10:41 Nicoderm Patch - TD Not Given DAILY [facility] Nicotine Polacrilex 2 mg 12/01/19 10:05 12/03/19 17:57 Nicorette Gum - BUC 2 mg Q2H PRN Administration NICOTINE REPLACEMENT RX Ondansetron HCl 4 mg 12/01/19 10:05 Zofran Odt - SL 12/07/19 10:06 Q8H PRN Nausea/Vomiting Multivit/Folic Acid/Iron 1 tab 12/02/19 10:00 12/03/19 10:41 Vitamins ([facility]) - PO Not Given DAILY [facility] Thiamine HCl 100 mg 12/01/19 22:00 12/03/19 22:03 Vitamin B1 - PO 100 mg HS JAZMYNE Administration Vital Signs Temperature 96.7 F L 12/04/19 08:33 Pulse Rate 64 12/04/19 08:33 Respiratory Rate 18 12/04/19 08:33 Blood Pressure 111/73 12/04/19 08:33 O2 Sat by Pulse Oximetry (%) 100 12/04/19 08:33 Assessment: 12/04/19 09:22 Mr. Laurent is a 44 yo man who presented to [facility] requesting detox from alcohol use. He was last here between October 12 and October 16 of this year. He completed detox and rehab. He was told to call [facility] for follow up care. He did not follow through with that plan and relapsed soon after discharge. PMH: None PSH: Appendectomy Psych: none SOC: homeless on the streets Legal;none 1. Alcohol use disorder 2. Nicotine dependence 12/04/19 09:25 Plan: 1. Librium detox, projected finish Tuesday 12/05 2. Nicoderm patch
[2019-12-04] MEDS: PRENATAL VITAMINS W/ FOLIC ACID TABLET (FP) PO SCH (10:48)
[2019-12-04] MEDS: BACITRACIN 0.9 GM PACKET TP SCH (10:48)
[2019-12-04] MEDS: NICOTINE 7 MG/24 HOURS TOPICAL PATCH TD SCH (10:48)
[2019-12-04 19:43] LABS: PH,URINE 6.5 (5.0-8.0); URINE APPEARANCE Clear; URINE BILIRUBIN Negative (NEGATIVE); URINE COLOR Yellow; URINE GLUCOSE (UA) Negative (NEGATIVE); URINE KETONE Negative (NEGATIVE); URINE LEUK ESTERASE Negative (NEGATIVE); URINE NITRITE Negative (NEGATIVE); URINE PROTEIN Negative (NEGATIVE); URINE UROBILINOGEN 0.2 mg/dL (0.2-1.0)
[2019-12-04] MEDS: THIAMINE HCL 100 MG TABLET (FP) PO SCH (22:06)
[2019-12-04] MEDS: MELATONIN 5 MG TABLETS PO SCH (22:06)
[2019-12-05 00:28] LABS: EPI CELLS 6 /uL (0-25.1); HYALINE CASTS 2 /uL (0-3.1); URINE BACTERIA 112 /uL (0-1359); URINE RBC 17 /uL (0-23.9); URINE WBC 2 /uL (0-25.8)
[2019-12-05] MEDS ORDERED: chlordiazePOXIDE HCL 10 MG CAPSULE PO SCH (05:00)
[2019-12-05] MEDS: chlordiazePOXIDE 5 MG CAPSULE PO SCH ×2 (06:34→17:51)
[2019-12-05] MEDS: BACITRACIN 0.9 GM PACKET TP SCH (10:34)
[2019-12-05] MEDS: NICOTINE 7 MG/24 HOURS TOPICAL PATCH TD SCH (10:34)
[2019-12-05] MEDS: PRENATAL VITAMINS W/ FOLIC ACID TABLET (FP) PO SCH (10:34)
--- NOTE | 2019-12-05 12:46 | PN ---
[facility] CIWA - CIWA Score Nausea/Vomitin-No Nausea/No Vomiting Muscle Tremors: None Anxiety: 1-Mildly Anxious Agitation: 0-Normal Activity Paroxysmal Sweats: 1-Minimal Palms Moist Orientation: 0-Oriented Tacttile Disturbances: 0-None Auditory Disturbances: 0-None Visual Disturbances: 0-None Headache: 0-None Present CIWA-Ar Total Score: 2 BHS Progress Note (SOAP) Subjective: c/o mild withdrawal symptoms. Objective: 12/05/19 12:44 Vital Signs 12/05/19 12/05/19 06:43 08:35 Temperature 97.7 F 97.5 F L Pulse Rate 80 71 Respiratory 18 18 Rate Blood Pressure 136/91 122/68 O2 Sat by Pulse 99 99 Oximetry (%) Laboratory Last Values WBC 11.2 K/mm3 (4.0-10.0) H 12/01/19 10:30 RBC 4.96 M/mm3 (4.00-5.60) 12/01/19 10:30 Hgb 15.4 GM/dL (11.7-16.9) 12/01/19 10:30 Hct 45.3 % (35.4-49) 12/01/19 10:30 MCV 91.3 fl (80-96) 12/01/19 10:30 MCH 31.0 pg (25.7-33.7) 12/01/19 10:30 MCHC 33.9 g/dl (32.0-35.9) 12/01/19 10:30 RDW 13.4 % (11.9-15.9) 12/01/19 10:30 Plt Count 236 K/MM3 (134-434) D 12/01/19 10:30 MPV 8.9 fl (7.5-11.1) 12/01/19 10:30 Sodium 133 mmol/L (136-145) L 12/01/19 10:30 Potassium 4.1 mmol/L (3.5-5.1) 12/01/19 10:30 Chloride 100 mmol/L (98-107) 12/01/19 10:30 Carbon Dioxide 24 mmol/L (21-32) 12/01/19 10:30 Anion Gap 9 MMOL/L (8-16) 12/01/19 10:30 BUN 11.8 mg/dL (7-18) 12/01/19 10:30 Creatinine 0.9 mg/dL (0.55-1.3) 12/01/19 10:30 Est GFR (CKD-EPI)AfAm 119.97 12/01/19 10:30 Est GFR (CKD-EPI)NonAf 103.51 12/01/19 10:30 Random Glucose 114 mg/dL (74-106) H 12/01/19 10:30 Fasting Glucose 110 mg/dL (74-106) H 12/05/19 06:50 Calcium 8.9 mg/dL (8.5-10.1) 12/01/19 10:30 Total Bilirubin 0.5 mg/dL (0.2-1) 12/01/19 10:30 AST 32 U/L (15-37) 12/01/19 10:30 ALT 35 U/L (13-61) 12/01/19 10:30 Alkaline Phosphatase 96 U/L (45-117) 12/01/19 10:30 Total Protein 7.9 g/dl (6.4-8.2) 12/01/19 10:30 Albumin 4.2 g/dl (3.4-5.0) 12/01/19 10:30 Urine Color Yellow 12/04/19 17:43 Urine Appearance Clear 12/04/19 17:43 Urine pH 6.5 (5.0-8.0) 12/04/19 17:43 Ur Specific [place] >= 1.030 (1.010-1.035) 12/04/19 17:43 Urine Protein Negative (NEGATIVE) 12/04/19 17:43 Urine Glucose (UA) Negative (NEGATIVE) 12/04/19 17:43 Urine Ketones Negative (NEGATIVE) 12/04/19 17:43 Urine Blood Negative (NEGATIVE) 12/04/19 17:43 Urine Nitrite Negative (NEGATIVE) 12/04/19 17:43 Urine Bilirubin Negative (NEGATIVE) 12/04/19 17:43 Urine Urobilinogen 0.2 mg/dL (0.2-1.0) 12/04/19 17:43 Ur Leukocyte Esterase Negative (NEGATIVE) 12/04/19 17:43 Urine WBC (Auto) 2 /uL (0-25.8) 12/04/19 17:43 Urine RBC (Auto) 17 /uL (0-23.9) 12/04/19 17:43 Urine Casts (Auto) 2 /uL (0-3.1) 12/04/19 17:43 U Epithel Cells (Auto) 6 /uL (0-25.1) 12/04/19 17:43 Urine Bacteria (Auto) 112 /uL (0-1359) 12/04/19 17:43 Syphilis Serology Non-reactive (NONREACTIVE) 12/01/19 10:30 COVID-19 ([facility]) Not detected (Not Detected) 12/01/19 10:30 Labs noted. Assessment: 12/05/19 12:45 AOX3 and in no acute respiratory distress. Full ROM, ambulating in the unit. mild Withdrawal symptoms. For d/c tomorrow. Plan: continue detox. D/C in AM.
[2019-12-05] MEDS: NICOTINE POLACRILEX 2 MG GUM BUC PRN ×2 (16:42→19:37)
[2019-12-05] MEDS: MELATONIN 5 MG TABLETS PO SCH (22:03)
[2019-12-05] MEDS: THIAMINE HCL 100 MG TABLET (FP) PO SCH (22:03)
[2019-12-06] MEDS ORDERED: chlordiazePOXIDE HCL 10 MG CAPSULE PO ONE (05:00)
[2019-12-06] MEDS ORDERED: CHLORDIAZEPOXIDE 5 MG CAPSULE PO ONE (05:00)
[2019-12-06 09:17] VITALS: BP 106/73; PULSE 65; TEMP 97.1
--- NOTE | 2019-12-06 13:14 | DS ---
[facility] Detox Discharge Summary Admission Date: 12/01/19 Discharge Date: 12/06/19 - History Present History: Alcohol Dependence Additional Comments: 44 years old male admitted on 12/01/19 for alcohol withdrawal sx management treated with librium detox regiment mr grullon has completed the librium regiment and is tolerated well alert oriented x 3 speech clearly coherently General Appearance: Yes: Nourished, Disheveled, Mild Distress HEENTM: Yes: EOMI, Hearing grossly Normal, Normocephalic, Normal Voice Respiratory: Yes: Lungs Clear, Normal Breath Sounds, No Respiratory Distress, No Accessory Muscle Use Neck: Yes: Within Normal Limits, Supple Breast: Yes: Breast Exam Deferred Cardiology: Yes: Regular Rhythm, Regular Rate, S1, S2 Abdominal: Yes: Non Tender, Flat, Soft, Tenderness (right upper quadrant) Genitourinary: Yes: Other (deferred) Back: Yes: Normal Inspection Musculoskeletal: Yes: full range of Motion, Gait Steady Extremities: Yes: Normal Inspection Neurological: Yes: Alert, Motor Strength 5/5, Normal Response Integumentary: Yes: Normal Color, Dry, Warm, Other (superficial abrasion right lateral wrist) Pertinent Past History: time for discharge 32 minutes - Physical Exam Results Vital Signs: Vital Signs Temperature 97.1 F L 12/06/19 08:33 Pulse Rate 65 12/06/19 08:33 Respiratory Rate 18 12/06/19 08:33 Blood Pressure 106/73 12/06/19 08:33 O2 Sat by Pulse Oximetry (%) 100 12/06/19 05:30 Pertinent Admission Physical Exam Findings: alcohol withdrawal Laboratory Tests 12/01/19 12/01/19 12/01/19 10:30 10:30 10:30 WBC 11.2 H RBC 4.96 Hgb 15.4 Hct 45.3 MCV 91.3 MCH 31.0 MCHC 33.9 RDW 13.4 Plt Count 236 D MPV 8.9 Sodium 133 L Potassium 4.1 Chloride 100 Carbon Dioxide 24 Anion Gap 9 BUN 11.8 Creatinine 0.9 Est GFR (CKD-EPI)AfAm 119.97 Est GFR (CKD-EPI)NonAf 103.51 Random Glucose 114 H Fasting Glucose Calcium 8.9 Total Bilirubin 0.5 AST 32 ALT 35 Alkaline Phosphatase 96 Total Protein 7.9 Albumin 4.2 Urine Color Urine Appearance Urine pH Ur Specific [place] Urine Protein Urine Glucose (UA) Urine Ketones Urine Blood Urine Nitrite Urine Bilirubin Urine Urobilinogen Ur Leukocyte Esterase Urine WBC (Auto) Urine RBC (Auto) Urine Casts (Auto) U Epithel Cells (Auto) Urine Bacteria (Auto) Syphilis Serology Non-reactive COVID-19 ([facility]) 12/01/19 12/04/19 12/05/19 10:30 17:43 06:50 WBC RBC Hgb Hct MCV MCH MCHC RDW Plt Count MPV Sodium Potassium Chloride Carbon Dioxide Anion Gap BUN Creatinine Est GFR (CKD-EPI)AfAm Est GFR (CKD-EPI)NonAf Random Glucose Fasting Glucose 110 H Calcium Total Bilirubin AST ALT Alkaline Phosphatase Total Protein Albumin Urine Color Yellow Urine Appearance Clear Urine pH 6.5 Ur Specific [place] >= 1.030 Urine Protein Negative Urine Glucose (UA) Negative Urine Ketones Negative Urine Blood Negative Urine Nitrite Negative Urine Bilirubin Negative Urine Urobilinogen 0.2 Ur Leukocyte Esterase Negative Urine WBC (Auto) 2 Urine RBC (Auto) 17 Urine Casts (Auto) 2 U Epithel Cells (Auto) 6 Urine Bacteria (Auto) 112 Syphilis Serology COVID-19 ([facility]) Not detected lab ntoed - Treatment Hospital Course: Detox Protocol Followed, Detoxed Safely, Responded well, Discharged Condition Good, Rehab Referral Accepted Patient has Accepted a Rehab Referral to: [facility] - Medication Discharge Medications: Ambulatory Orders NK [No Known Home Medication] 06/20/19 - Diagnosis (1) Alcohol dependence with uncomplicated withdrawal Status: Acute (2) Nicotine dependence Status: Acute Qualifiers: Nicotine product type: cigarettes Substance use status: in withdrawal Qualified Code(s): F17.213 - Nicotine dependence, cigarettes, with withdrawal (3) Substance induced mood disorder Status: Suspected - AMA Did Patient Leave Against Medical Advice: No CIWA Score - CIWA Score Nausea/Vomitin-No Nausea/No Vomiting Muscle Tremors: None Anxiety: 1-Mildly Anxious Agitation: 0-Normal Activity Paroxysmal Sweats: No Perspiration Orientation: 0-Oriented Tacttile Disturbances: 0-None Auditory Disturbances: 0-None Visual Disturbances: 0-None Headache: 0-None Present CIWA-Ar Total Score: 1
== END 2019-12-06 09:04 | disposition home or self-care (01) | DRG 775 ==
LOC: YASAS 08:19 → Y3N 09:55
PROVIDERS: ADMIT Allergy & Immunology; ATTEND Allergy & Immunology
PROC: HZ2ZZZZ Detoxification Services for Substance Abuse Treatment (ICD-10-PCS; principal; 2019-12-01)
DX: F10.230 Alcohol dependence with withdrawal, uncomplicated (principal); F17.213 Nicotine dependence, cigarettes, with withdrawal; F19.24 Other psychoactive substance dependence with psychoactive substance-induced mood disorder; Z59.0 Homelessness
CPT/HCPCS: 36415; 80053; 81003; 82947; 85027; 86780; U0003

== ENCOUNTER 2020-03-08 11:39 | Inpatient (IN) | payer OTHER ==
[~2020-03-08 11:39] MED LIST: ACETAMINOPHEN 325 MG TABLET (FP) PO PRN; IBUPROFEN 400 MG TABLET (FP) PO PRN; LOPERAMIDE HCL 2 MG CAPSULE PO PRN; MAGNESIUM CITRATE 300 ML BOTTLE PO PRN; MAGNESIUM HYDROX 2400MG/30ML ORAL SUSPENSION 30 ML CUP PO PRN; P-EPHED 60MG/TRIPROLIDI 2.5MG TABLET PO PRN; guaiFENesin 200 MG/10 ML 10 ML UNIT-DOSE CUPS PO PRN
[2020-03-08] MEDS: NICOTINE POLACRILEX 4 MG GUM BUC PRN (17:34)
[2020-03-08] MEDS: QUEtiapine FUMARATE 50 MG TABLET PO SCH (21:17)
[2020-03-08] MEDS: MELATONIN 5 MG TABLETS PO SCH (21:17)
[2020-03-08] MEDS: THIAMINE HCL 100 MG TABLET (FP) PO SCH (21:17)
[2020-03-09] MEDS: PRENATAL VITAMINS W/ FOLIC ACID TABLET (FP) PO SCH (09:41)
[2020-03-09] MEDS: NICOTINE 21 MG/24 HOURS TOPICAL PATCH TD SCH (09:41)
[2020-03-09] MEDS: NICOTINE POLACRILEX 4 MG GUM BUC PRN (12:50)
[2020-03-09] MEDS: MELATONIN 5 MG TABLETS PO SCH (21:23)
[2020-03-09] MEDS: THIAMINE HCL 100 MG TABLET (FP) PO SCH (21:23)
[2020-03-09] MEDS: QUEtiapine FUMARATE 50 MG TABLET PO SCH (21:23)
[2020-03-10] MEDS: NICOTINE 21 MG/24 HOURS TOPICAL PATCH TD SCH (09:45)
[2020-03-10] MEDS: PRENATAL VITAMINS W/ FOLIC ACID TABLET (FP) PO SCH (09:45)
[2020-03-10] MEDS: NICOTINE POLACRILEX 4 MG GUM BUC PRN ×2 (14:06→21:30)
[2020-03-10] MEDS: THIAMINE HCL 100 MG TABLET (FP) PO SCH (21:28)
[2020-03-10] MEDS: QUEtiapine FUMARATE 50 MG TABLET PO SCH (21:28)
[2020-03-10] MEDS: MELATONIN 5 MG TABLETS PO SCH (21:28)
[2020-03-11] MEDS: NICOTINE POLACRILEX 4 MG GUM BUC PRN ×3 (06:55→20:30)
[2020-03-11] MEDS: PRENATAL VITAMINS W/ FOLIC ACID TABLET (FP) PO SCH (10:02)
[2020-03-11] MEDS: NICOTINE 21 MG/24 HOURS TOPICAL PATCH TD SCH (10:03)
[2020-03-11] MEDS ORDERED: INSULIN (NOVOLOG) ASPART 100 UNITS/ML 10ML VIAL ONE (16:27)
[2020-03-11] MEDS: QUEtiapine FUMARATE 50 MG TABLET PO SCH (21:07)
[2020-03-11] MEDS: THIAMINE HCL 100 MG TABLET (FP) PO SCH (21:07)
[2020-03-11] MEDS: MELATONIN 5 MG TABLETS PO SCH (21:07)
[2020-03-12] MEDS: NICOTINE POLACRILEX 4 MG GUM BUC PRN ×4 (06:21→21:11)
[2020-03-12] MEDS: PRENATAL VITAMINS W/ FOLIC ACID TABLET (FP) PO SCH (09:39)
[2020-03-12] MEDS: NICOTINE 21 MG/24 HOURS TOPICAL PATCH TD SCH (09:39)
[2020-03-12] MEDS: QUEtiapine FUMARATE 50 MG TABLET PO SCH (21:11)
[2020-03-12] MEDS: MELATONIN 5 MG TABLETS PO SCH (21:11)
[2020-03-12] MEDS: THIAMINE HCL 100 MG TABLET (FP) PO SCH (21:11)
[2020-03-13] MEDS: NICOTINE POLACRILEX 4 MG GUM BUC PRN ×3 (06:58→21:36)
[2020-03-13] MEDS: NICOTINE 21 MG/24 HOURS TOPICAL PATCH TD SCH ×2 (10:41→12:20)
[2020-03-13] MEDS: PRENATAL VITAMINS W/ FOLIC ACID TABLET (FP) PO SCH ×2 (10:41→12:20)
[2020-03-13] MEDS: THIAMINE HCL 100 MG TABLET (FP) PO SCH (21:34)
[2020-03-13] MEDS: MELATONIN 5 MG TABLETS PO SCH (21:34)
[2020-03-13] MEDS: QUEtiapine FUMARATE 50 MG TABLET PO SCH (21:34)
[2020-03-14] MEDS: PRENATAL VITAMINS W/ FOLIC ACID TABLET (FP) PO SCH (10:08)
[2020-03-14] MEDS: NICOTINE 21 MG/24 HOURS TOPICAL PATCH TD SCH (10:08)
[2020-03-14] MEDS: NICOTINE POLACRILEX 4 MG GUM BUC PRN ×4 (10:08→21:20)
[2020-03-14] MEDS: MAG HYDROX/AL HYDROX/SIMETH 30 ML UNIT-DOSE CUP PO PRN (17:14)
[2020-03-14] MEDS: QUEtiapine FUMARATE 50 MG TABLET PO SCH (21:19)
[2020-03-14] MEDS: THIAMINE HCL 100 MG TABLET (FP) PO SCH (21:19)
[2020-03-14] MEDS: MELATONIN 5 MG TABLETS PO SCH (21:19)
[2020-03-15] MEDS: NICOTINE POLACRILEX 4 MG GUM BUC PRN ×5 (07:27→21:18)
[2020-03-15] MEDS: NICOTINE 21 MG/24 HOURS TOPICAL PATCH TD SCH (09:41)
[2020-03-15] MEDS: PRENATAL VITAMINS W/ FOLIC ACID TABLET (FP) PO SCH (09:42)
[2020-03-15] MEDS: MAG HYDROX/AL HYDROX/SIMETH 30 ML UNIT-DOSE CUP PO PRN (09:42)
[2020-03-15] MEDS: THIAMINE HCL 100 MG TABLET (FP) PO SCH (21:18)
[2020-03-15] MEDS: MELATONIN 5 MG TABLETS PO SCH (21:18)
[2020-03-15] MEDS: QUEtiapine FUMARATE 50 MG TABLET PO SCH (21:18)
[2020-03-16] MEDS: NICOTINE POLACRILEX 4 MG GUM BUC PRN ×4 (07:06→21:28)
[2020-03-16] MEDS: PRENATAL VITAMINS W/ FOLIC ACID TABLET (FP) PO SCH (09:48)
[2020-03-16] MEDS: NICOTINE 21 MG/24 HOURS TOPICAL PATCH TD SCH (09:49)
[2020-03-16] MEDS: MAG HYDROX/AL HYDROX/SIMETH 30 ML UNIT-DOSE CUP PO PRN (19:25)
[2020-03-16] MEDS: QUEtiapine FUMARATE 50 MG TABLET PO SCH (21:28)
[2020-03-16] MEDS: MELATONIN 5 MG TABLETS PO SCH (21:28)
[2020-03-16] MEDS: THIAMINE HCL 100 MG TABLET (FP) PO SCH (21:28)
[2020-03-17] MEDS: NICOTINE 21 MG/24 HOURS TOPICAL PATCH TD SCH (09:55)
[2020-03-17] MEDS: PRENATAL VITAMINS W/ FOLIC ACID TABLET (FP) PO SCH (09:55)
[2020-03-17] MEDS: NICOTINE POLACRILEX 4 MG GUM BUC PRN ×4 (09:56→21:31)
[2020-03-17] MEDS: THIAMINE HCL 100 MG TABLET (FP) PO SCH (21:31)
[2020-03-17] MEDS: MELATONIN 5 MG TABLETS PO SCH (21:31)
[2020-03-17] MEDS: QUEtiapine FUMARATE 50 MG TABLET PO SCH (21:31)
[2020-03-18] MEDS: PRENATAL VITAMINS W/ FOLIC ACID TABLET (FP) PO SCH (09:44)
[2020-03-18] MEDS: NICOTINE 21 MG/24 HOURS TOPICAL PATCH TD SCH (09:44)
[2020-03-18] MEDS: NICOTINE POLACRILEX 4 MG GUM BUC PRN ×4 (12:02→19:46)
[2020-03-18] MEDS: THIAMINE HCL 100 MG TABLET (FP) PO SCH (21:12)
[2020-03-18] MEDS: QUEtiapine FUMARATE 50 MG TABLET PO SCH (21:12)
[2020-03-18] MEDS: MELATONIN 5 MG TABLETS PO SCH (21:13)
[2020-03-19] MEDS: NICOTINE 21 MG/24 HOURS TOPICAL PATCH TD SCH (09:50)
[2020-03-19] MEDS: NICOTINE POLACRILEX 4 MG GUM BUC PRN ×5 (09:50→22:05)
[2020-03-19] MEDS: PRENATAL VITAMINS W/ FOLIC ACID TABLET (FP) PO SCH (09:50)
[2020-03-19] MEDS ORDERED: PT OWN MED DRAWER 7, Y5N ONE (10:57)
[2020-03-19] MEDS: QUEtiapine FUMARATE 50 MG TABLET PO SCH (22:03)
[2020-03-19] MEDS: THIAMINE HCL 100 MG TABLET (FP) PO SCH (22:03)
[2020-03-19] MEDS: MELATONIN 5 MG TABLETS PO SCH (22:04)
[2020-03-20] MEDS: NICOTINE POLACRILEX 4 MG GUM BUC PRN ×5 (09:03→21:15)
[2020-03-20] MEDS: PRENATAL VITAMINS W/ FOLIC ACID TABLET (FP) PO SCH (10:11)
[2020-03-20] MEDS: NICOTINE 21 MG/24 HOURS TOPICAL PATCH TD SCH (10:11)
[2020-03-20] MEDS: MELATONIN 5 MG TABLETS PO SCH (21:14)
[2020-03-20] MEDS: QUEtiapine FUMARATE 50 MG TABLET PO SCH (21:14)
[2020-03-20] MEDS: THIAMINE HCL 100 MG TABLET (FP) PO SCH (21:14)
[2020-03-21] MEDS ORDERED: hydrOXYzine PAMOATE 25 MG CAPSULE (FP) PO PRN (09:28)
[2020-03-21] MEDS: PRENATAL VITAMINS W/ FOLIC ACID TABLET (FP) PO SCH (09:55)
[2020-03-21] MEDS: NICOTINE POLACRILEX 4 MG GUM BUC PRN ×4 (09:56→21:54)
[2020-03-21] MEDS: NICOTINE 21 MG/24 HOURS TOPICAL PATCH TD SCH (09:56)
[2020-03-21] MEDS: MELATONIN 5 MG TABLETS PO SCH (21:53)
[2020-03-21] MEDS: QUEtiapine FUMARATE 50 MG TABLET PO SCH (21:53)
[2020-03-21] MEDS: THIAMINE HCL 100 MG TABLET (FP) PO SCH (21:53)
[2020-03-22] MEDS: NICOTINE POLACRILEX 4 MG GUM BUC PRN ×6 (06:42→21:49)
[2020-03-22] MEDS: PRENATAL VITAMINS W/ FOLIC ACID TABLET (FP) PO SCH (09:51)
[2020-03-22] MEDS: NICOTINE 21 MG/24 HOURS TOPICAL PATCH TD SCH (09:52)
[2020-03-22] MEDS: MELATONIN 5 MG TABLETS PO SCH (21:18)
[2020-03-22] MEDS: THIAMINE HCL 100 MG TABLET (FP) PO SCH (21:18)
[2020-03-22] MEDS: QUEtiapine FUMARATE 50 MG TABLET PO SCH (21:18)
[2020-03-23] MEDS: NICOTINE POLACRILEX 4 MG GUM BUC PRN ×6 (06:20→22:29)
[2020-03-23] MEDS: NICOTINE 21 MG/24 HOURS TOPICAL PATCH TD SCH (10:14)
[2020-03-23] MEDS: PRENATAL VITAMINS W/ FOLIC ACID TABLET (FP) PO SCH (10:14)
[2020-03-23] MEDS: QUEtiapine FUMARATE 50 MG TABLET PO SCH (21:24)
[2020-03-23] MEDS: THIAMINE HCL 100 MG TABLET (FP) PO SCH (21:24)
[2020-03-23] MEDS: MELATONIN 5 MG TABLETS PO SCH (21:24)
[2020-03-24] MEDS: NICOTINE POLACRILEX 4 MG GUM BUC PRN ×4 (08:58→19:28)
[2020-03-24] MEDS: PRENATAL VITAMINS W/ FOLIC ACID TABLET (FP) PO SCH (09:56)
[2020-03-24] MEDS: NICOTINE 21 MG/24 HOURS TOPICAL PATCH TD SCH (09:56)
[2020-03-24] MEDS ORDERED: MASKS NR ONE (17:29)
[2020-03-24] MEDS: MELATONIN 5 MG TABLETS PO SCH (21:11)
[2020-03-24] MEDS: THIAMINE HCL 100 MG TABLET (FP) PO SCH (21:11)
[2020-03-24] MEDS: QUEtiapine FUMARATE 50 MG TABLET PO SCH (21:11)
[2020-03-25] MEDS: NICOTINE POLACRILEX 4 MG GUM BUC PRN ×5 (06:22→21:37)
[2020-03-25] MEDS: NICOTINE 21 MG/24 HOURS TOPICAL PATCH TD SCH (09:46)
[2020-03-25] MEDS: PRENATAL VITAMINS W/ FOLIC ACID TABLET (FP) PO SCH (09:46)
[2020-03-25] MEDS: QUEtiapine FUMARATE 50 MG TABLET PO SCH (21:36)
[2020-03-25] MEDS: MELATONIN 5 MG TABLETS PO SCH (21:36)
[2020-03-25] MEDS: THIAMINE HCL 100 MG TABLET (FP) PO SCH (21:36)
[2020-03-26] MEDS: NICOTINE 21 MG/24 HOURS TOPICAL PATCH TD SCH (09:37)
[2020-03-26] MEDS: PRENATAL VITAMINS W/ FOLIC ACID TABLET (FP) PO SCH (09:37)
[2020-03-26] MEDS: NICOTINE POLACRILEX 4 MG GUM BUC PRN ×3 (13:56→19:20)
[2020-03-26] MEDS: THIAMINE HCL 100 MG TABLET (FP) PO SCH (21:13)
[2020-03-26] MEDS: QUEtiapine FUMARATE 50 MG TABLET PO SCH (21:13)
[2020-03-26] MEDS: MELATONIN 5 MG TABLETS PO SCH (21:13)
[2020-03-27] MEDS: NICOTINE POLACRILEX 4 MG GUM BUC PRN ×6 (08:01→22:01)
[2020-03-27] MEDS: NICOTINE 21 MG/24 HOURS TOPICAL PATCH TD SCH (09:41)
[2020-03-27] MEDS: PRENATAL VITAMINS W/ FOLIC ACID TABLET (FP) PO SCH (09:42)
[2020-03-27] MEDS: MELATONIN 5 MG TABLETS PO SCH (21:33)
[2020-03-27] MEDS: THIAMINE HCL 100 MG TABLET (FP) PO SCH (21:33)
[2020-03-27] MEDS: QUEtiapine FUMARATE 50 MG TABLET PO SCH (21:33)
[2020-03-28] MEDS: NICOTINE POLACRILEX 4 MG GUM BUC PRN ×5 (07:53→20:08)
[2020-03-28] MEDS: NICOTINE 21 MG/24 HOURS TOPICAL PATCH TD SCH (10:30)
[2020-03-28] MEDS: PRENATAL VITAMINS W/ FOLIC ACID TABLET (FP) PO SCH (10:31)
[2020-03-28] MEDS: THIAMINE HCL 100 MG TABLET (FP) PO SCH (21:13)
[2020-03-28] MEDS: MELATONIN 5 MG TABLETS PO SCH (21:13)
[2020-03-28] MEDS: QUEtiapine FUMARATE 50 MG TABLET PO SCH (21:13)
[2020-03-29] MEDS: NICOTINE POLACRILEX 4 MG GUM BUC PRN ×4 (08:33→21:26)
[2020-03-29] MEDS: NICOTINE 21 MG/24 HOURS TOPICAL PATCH TD SCH (09:35)
[2020-03-29] MEDS: PRENATAL VITAMINS W/ FOLIC ACID TABLET (FP) PO SCH (09:35)
[2020-03-29] MEDS: QUEtiapine FUMARATE 50 MG TABLET PO SCH (21:25)
[2020-03-29] MEDS: MELATONIN 5 MG TABLETS PO SCH (21:25)
[2020-03-29] MEDS: THIAMINE HCL 100 MG TABLET (FP) PO SCH (21:25)
[2020-03-30] MEDS: NICOTINE POLACRILEX 4 MG GUM BUC PRN ×5 (07:30→21:20)
[2020-03-30] MEDS: PRENATAL VITAMINS W/ FOLIC ACID TABLET (FP) PO SCH (09:24)
[2020-03-30] MEDS: NICOTINE 21 MG/24 HOURS TOPICAL PATCH TD SCH (09:24)
[2020-03-30] MEDS: MELATONIN 5 MG TABLETS PO SCH (21:00)
[2020-03-30] MEDS: QUEtiapine FUMARATE 50 MG TABLET PO SCH (21:00)
[2020-03-30] MEDS: THIAMINE HCL 100 MG TABLET (FP) PO SCH (21:00)
[2020-03-31] MEDS: NICOTINE 21 MG/24 HOURS TOPICAL PATCH TD SCH (09:53)
[2020-03-31] MEDS: PRENATAL VITAMINS W/ FOLIC ACID TABLET (FP) PO SCH (09:53)
[2020-03-31] MEDS: NICOTINE POLACRILEX 4 MG GUM BUC PRN ×4 (09:53→21:32)
[2020-03-31] MEDS: QUEtiapine FUMARATE 50 MG TABLET PO SCH (21:31)
[2020-03-31] MEDS: THIAMINE HCL 100 MG TABLET (FP) PO SCH (21:33)
[2020-03-31] MEDS: MELATONIN 5 MG TABLETS PO SCH (21:33)
[2020-04-01] MEDS: NICOTINE 21 MG/24 HOURS TOPICAL PATCH TD SCH (10:10)
[2020-04-01] MEDS: PRENATAL VITAMINS W/ FOLIC ACID TABLET (FP) PO SCH (10:10)
[2020-04-01] MEDS: NICOTINE POLACRILEX 4 MG GUM BUC PRN ×5 (11:31→22:33)
[2020-04-01] MEDS: THIAMINE HCL 100 MG TABLET (FP) PO SCH (21:00)
[2020-04-01] MEDS: MELATONIN 5 MG TABLETS PO SCH (21:00)
[2020-04-01] MEDS: QUEtiapine FUMARATE 50 MG TABLET PO SCH (21:00)
[2020-04-02] MEDS: NICOTINE 21 MG/24 HOURS TOPICAL PATCH TD SCH (10:21)
[2020-04-02] MEDS: PRENATAL VITAMINS W/ FOLIC ACID TABLET (FP) PO SCH (10:21)
[2020-04-02] MEDS: NICOTINE POLACRILEX 4 MG GUM BUC PRN ×4 (10:22→20:22)
[2020-04-02] MEDS: QUEtiapine FUMARATE 50 MG TABLET PO SCH (21:59)
[2020-04-02] MEDS: MELATONIN 5 MG TABLETS PO SCH (21:59)
[2020-04-02] MEDS: THIAMINE HCL 100 MG TABLET (FP) PO SCH (21:59)
[2020-04-03] MEDS: NICOTINE POLACRILEX 4 MG GUM BUC PRN ×6 (06:14→20:00)
[2020-04-03] MEDS: NICOTINE 21 MG/24 HOURS TOPICAL PATCH TD SCH (10:22)
[2020-04-03] MEDS: PRENATAL VITAMINS W/ FOLIC ACID TABLET (FP) PO SCH (10:22)
[2020-04-03] MEDS: QUEtiapine FUMARATE 50 MG TABLET PO SCH (21:25)
[2020-04-03] MEDS: MELATONIN 5 MG TABLETS PO SCH (21:26)
[2020-04-03] MEDS: THIAMINE HCL 100 MG TABLET (FP) PO SCH (21:26)
[2020-04-04] MEDS: NICOTINE POLACRILEX 4 MG GUM BUC PRN ×6 (07:21→21:38)
[2020-04-04] MEDS: PRENATAL VITAMINS W/ FOLIC ACID TABLET (FP) PO SCH (09:32)
[2020-04-04] MEDS: NICOTINE 21 MG/24 HOURS TOPICAL PATCH TD SCH (09:40)
[2020-04-04] MEDS: THIAMINE HCL 100 MG TABLET (FP) PO SCH (21:37)
[2020-04-04] MEDS: QUEtiapine FUMARATE 50 MG TABLET PO SCH (21:37)
[2020-04-04] MEDS: MELATONIN 5 MG TABLETS PO SCH (21:37)
[2020-04-05 07:18] VITALS: BP 110/67; PULSE 86; TEMP 97.7
[2020-04-05] MEDS: NICOTINE POLACRILEX 4 MG GUM BUC PRN (08:00)
[2020-04-05] MEDS: NICOTINE 21 MG/24 HOURS TOPICAL PATCH TD SCH (09:03)
[2020-04-05] MEDS: PRENATAL VITAMINS W/ FOLIC ACID TABLET (FP) PO SCH (09:04)
== END 2020-04-05 09:20 | disposition home or self-care (01) | DRG 772 ==
LOC: YASAS 11:39 → Y3W 11:41
PROVIDERS: ADMIT Allergy & Immunology; ATTEND Allergy & Immunology
PROC: HZ42ZZZ Group Counseling for Substance Abuse Treatment, Cognitive-Behavioral (ICD-10-PCS; principal; 2020-03-08)
DX: F10.20 Alcohol dependence, uncomplicated (principal); F14.20 Cocaine dependence, uncomplicated; F12.10 Cannabis abuse, uncomplicated; F17.210 Nicotine dependence, cigarettes, uncomplicated; M54.5 Low back pain; G89.29 Other chronic pain

== ENCOUNTER 2020-10-07 21:41 | Inpatient (IN) | payer OTHER ==
[2020-10-07 23:14] VITALS: BMI 23.1
[2020-10-07] MEDS ORDERED: METHOCARBAMOL 500 MG TABLET PO PRN (23:25)
[2020-10-07] MEDS ORDERED: MAGNESIUM CITRATE 300 ML BOTTLE PO PRN (23:25)
[2020-10-07] MEDS ORDERED: ACETAMINOPHEN 325 MG TABLET (FP) PO PRN ×2 (23:25)
[2020-10-07] MEDS ORDERED: MAG HYDROX/AL HYDROX/SIMETH 30 ML UNIT-DOSE CUP PO PRN (23:25)
[2020-10-07] MEDS ORDERED: IBUPROFEN 400 MG TABLET (FP) PO PRN (23:25)
[2020-10-07] MEDS ORDERED: BISMUTH SUBSALICYLATE 524 MG/30 ML PO PRN (23:25)
[2020-10-07] MEDS ORDERED: MENTHOL/PHENOL 1 EACH UD MM PRN (23:25)
[2020-10-07] MEDS ORDERED: MAGNESIUM HYDROX 2400MG/30ML ORAL SUSPENSION 30 ML CUP PO PRN (23:25)
[2020-10-07] MEDS ORDERED: ONDANSETRON *ODT* 4 MG TABLET SL PRN (23:25)
[2020-10-08] MEDS ORDERED: cloNIDine HCL 0.1 MG TABLET PO ONE (01:57)
[2020-10-08] MEDS: diazePAM 5 MG TABLET PO SCH ×4 (05:37→22:06)
[2020-10-08 10:00] LABS: BLOOD UREA NITROGEN 9.9 mg/dL (7-18)
[2020-10-08 10:01] LABS: ALBUMIN 3.6 g/dl (3.4-5.0)
[2020-10-08 10:04] LABS: CREATININE 0.7 mg/dL (0.55-1.3)
[2020-10-08 10:06] LABS: BILIRUBIN,TOTAL 0.4 mg/dL (0.2-1); TOT PROT 6.8 g/dl (6.4-8.2)
[2020-10-08 10:07] LABS: HEMATOCRIT 43.9 % (35.4-49); HEMOGLOBIN 15.2 GM/dL (11.7-16.9); MCH 30.7 pg (25.7-33.7); MCHC 34.6 g/dl (32.0-35.9); MEAN CELL VOLUME 88.9 fl (80-96); MEAN PLT VOLUME 8.2 fl (7.5-11.1); PLATELET COUNT 240 K/MM3 (134-434); RBC 4.94 M/mm3 (4.00-5.60); RDW 14.6 % (11.9-15.9); WHITE BLOOD COUNT 6.9 K/mm3 (4.0-10.0)
[2020-10-08] MEDS: PRENATAL VITAMINS W/ FOLIC ACID TABLET (FP) PO SCH (10:36)
[2020-10-08] MEDS: NICOTINE 14 MG/24 HOURS TOPICAL PATCH TD SCH (10:37)
[2020-10-08] MEDS: NICOTINE POLACRILEX 2 MG GUM BUC PRN ×2 (18:08→20:52)
[2020-10-08] MEDS: QUEtiapine FUMARATE 50 MG TABLET PO SCH (22:07)
[2020-10-08] MEDS: MELATONIN 5 MG TABLETS PO SCH (22:07)
[2020-10-08] MEDS: THIAMINE HCL 100 MG TABLET (FP) PO SCH (22:07)
[2020-10-09] MEDS: diazePAM 5 MG TABLET PO SCH ×3 (05:41→21:49)
[2020-10-09] MEDS: NICOTINE 14 MG/24 HOURS TOPICAL PATCH TD SCH (10:28)
[2020-10-09] MEDS: PRENATAL VITAMINS W/ FOLIC ACID TABLET (FP) PO SCH (10:28)
[2020-10-09] MEDS: diazePAM 5 MG TABLET PO PRN (10:30)
[2020-10-09] MEDS: NICOTINE POLACRILEX 2 MG GUM BUC PRN ×3 (16:49→21:51)
[2020-10-09] MEDS: QUEtiapine FUMARATE 50 MG TABLET PO SCH (21:48)
[2020-10-09] MEDS: THIAMINE HCL 100 MG TABLET (FP) PO SCH (21:48)
[2020-10-09] MEDS: MELATONIN 5 MG TABLETS PO SCH (21:49)
[2020-10-10] MEDS: diazePAM 5 MG TABLET PO SCH ×2 (05:56→17:44)
[2020-10-10] MEDS: NICOTINE POLACRILEX 2 MG GUM BUC PRN ×4 (05:57→20:55)
[2020-10-10] MEDS: PRENATAL VITAMINS W/ FOLIC ACID TABLET (FP) PO SCH (10:01)
[2020-10-10] MEDS: NICOTINE 14 MG/24 HOURS TOPICAL PATCH TD SCH (10:02)
[2020-10-10] MEDS: diazePAM 5 MG TABLET PO PRN ×2 (10:02→21:50)
[2020-10-10] MEDS: MELATONIN 5 MG TABLETS PO SCH (21:46)
[2020-10-10] MEDS: THIAMINE HCL 100 MG TABLET (FP) PO SCH (21:46)
[2020-10-10] MEDS: QUEtiapine FUMARATE 50 MG TABLET PO SCH (21:46)
[2020-10-11] MEDS ORDERED: diazePAM 5 MG TABLET PO ONE (06:00)
[2020-10-11] MEDS: NICOTINE POLACRILEX 2 MG GUM BUC PRN (07:46)
[2020-10-11] MEDS: PRENATAL VITAMINS W/ FOLIC ACID TABLET (FP) PO SCH (09:22)
[2020-10-11] MEDS: NICOTINE 14 MG/24 HOURS TOPICAL PATCH TD SCH (09:22)
[2020-10-11 09:29] VITALS: BP 124/79; PULSE 80; TEMP 96.4
[2020-10-12 10:10] LABS: SARS-CoV-2 NAA Not Detected (Not Detected)
== END 2020-10-11 09:20 | disposition home or self-care (01) | DRG 774 ==
LOC: YASAS 21:41 → Y3N 23:50
PROVIDERS: ADMIT Allergy & Immunology; ATTEND Allergy & Immunology
PROC: HZ2ZZZZ Detoxification Services for Substance Abuse Treatment (ICD-10-PCS; principal; 2020-10-07)
DX: F10.230 Alcohol dependence with withdrawal, uncomplicated (principal); F14.20 Cocaine dependence, uncomplicated; F12.20 Cannabis dependence, uncomplicated; F17.210 Nicotine dependence, cigarettes, uncomplicated; F19.280 Other psychoactive substance dependence with psychoactive substance-induced anxiety disorder; F19.282 Other psychoactive substance dependence with psychoactive substance-induced sleep disorder; F19.24 Other psychoactive substance dependence with psychoactive substance-induced mood disorder; G47.00 Insomnia, unspecified; I10 Essential (primary) hypertension; M54.5 Low back pain; G89.29 Other chronic pain; Z56.0 Unemployment, unspecified; Z59.0 Homelessness
CPT/HCPCS: 36415; 80053; 85027; 86780; 93005; 93010; C9803; J0735; U0003; U0005

== ENCOUNTER 2020-11-12 19:36 | Inpatient (IN) | payer OTHER ==
[2020-11-12] MEDS ORDERED: ACETAMINOPHEN 325 MG TABLET (FP) PO PRN ×2 (21:00)
[2020-11-12] MEDS ORDERED: ONDANSETRON *ODT* 4 MG TABLET SL PRN (21:00)
[2020-11-12] MEDS ORDERED: MAG HYDROX/AL HYDROX/SIMETH 30 ML UNIT-DOSE CUP PO PRN (21:00)
[2020-11-12] MEDS ORDERED: MAGNESIUM HYDROX 2400MG/30ML ORAL SUSPENSION 30 ML CUP PO PRN (21:00)
[2020-11-12] MEDS ORDERED: MAGNESIUM CITRATE 300 ML BOTTLE PO PRN (21:00)
[2020-11-12] MEDS ORDERED: BISMUTH SUBSALICYLATE 524 MG/30 ML PO PRN (21:00)
[2020-11-12] MEDS ORDERED: METHOCARBAMOL 500 MG TABLET PO PRN (21:00)
[2020-11-12] MEDS ORDERED: IBUPROFEN 400 MG TABLET (FP) PO PRN (21:00)
[2020-11-12] MEDS ORDERED: MENTHOL/PHENOL 1 EACH UD MM PRN (21:00)
[2020-11-12 21:19] VITALS: BMI 23.5
[2020-11-12] MEDS: MELATONIN 5 MG TABLETS PO SCH (22:16)
[2020-11-12] MEDS: THIAMINE HCL 100 MG TABLET (FP) PO SCH (22:17)
[2020-11-13] MEDS: diazePAM 5 MG TABLET PO PRN (01:00)
[2020-11-13] MEDS: diazePAM 5 MG TABLET PO SCH ×4 (06:03→22:01)
[2020-11-13] MEDS: PRENATAL VITAMINS W/ FOLIC ACID TABLET (FP) PO SCH (10:43)
[2020-11-13] MEDS: NICOTINE 14 MG/24 HOURS TOPICAL PATCH TD SCH (10:43)
[2020-11-13 11:43] LABS: HEMATOCRIT 47.1 % (35.4-49); HEMOGLOBIN 15.7 GM/dL (11.7-16.9); MCH 29.9 pg (25.7-33.7); MCHC 33.4 g/dl (32.0-35.9); MEAN CELL VOLUME 89.6 fl (80-96); PLATELET COUNT 256 10^3/uL (134-434); RBC 5.26 M/mm3 (4.00-5.60); RDW 14.3 % (11.9-15.9); WHITE BLOOD COUNT 7.8 K/mm3 (4.0-10.0)
[2020-11-13 12:03] LABS: CALCIUM 8.5 mg/dL (8.5-10.1)
[2020-11-13 12:04] LABS: ALBUMIN 3.7 g/dl (3.4-5.0); BLOOD UREA NITROGEN 15.7 mg/dL (7-18)
[2020-11-13 12:07] LABS: CREATININE 0.9 mg/dL (0.55-1.3)
[2020-11-13 12:08] LABS: BILIRUBIN,TOTAL 0.6 mg/dL (0.2-1); TOT PROT 6.9 g/dl (6.4-8.2)
[2020-11-13] MEDS: NICOTINE POLACRILEX 2 MG GUM BUC PRN ×3 (16:46→21:47)
[2020-11-13] MEDS: MELATONIN 5 MG TABLETS PO SCH (21:43)
[2020-11-13] MEDS: THIAMINE HCL 100 MG TABLET (FP) PO SCH (21:43)
[2020-11-14] MEDS: diazePAM 5 MG TABLET PO SCH ×3 (06:21→22:05)
[2020-11-14] MEDS: NICOTINE POLACRILEX 2 MG GUM BUC PRN ×3 (06:22→19:26)
[2020-11-14] MEDS: PRENATAL VITAMINS W/ FOLIC ACID TABLET (FP) PO SCH (10:20)
[2020-11-14] MEDS: NICOTINE 14 MG/24 HOURS TOPICAL PATCH TD SCH (10:20)
[2020-11-14] MEDS: diazePAM 5 MG TABLET PO PRN (10:20)
[2020-11-14] MEDS: THIAMINE HCL 100 MG TABLET (FP) PO SCH (22:05)
[2020-11-14] MEDS: MELATONIN 5 MG TABLETS PO SCH (22:06)
[2020-11-15] MEDS: diazePAM 5 MG TABLET PO PRN ×3 (00:56→22:02)
[2020-11-15] MEDS: diazePAM 5 MG TABLET PO SCH ×2 (06:12→17:56)
[2020-11-15] MEDS: PRENATAL VITAMINS W/ FOLIC ACID TABLET (FP) PO SCH (10:27)
[2020-11-15] MEDS: NICOTINE 14 MG/24 HOURS TOPICAL PATCH TD SCH (10:27)
[2020-11-15] MEDS: NICOTINE POLACRILEX 2 MG GUM BUC PRN ×4 (15:00→22:03)
[2020-11-15] MEDS: MELATONIN 5 MG TABLETS PO SCH (22:02)
[2020-11-15] MEDS: THIAMINE HCL 100 MG TABLET (FP) PO SCH (22:02)
[2020-11-16] MEDS ORDERED: diazePAM 5 MG TABLET PO ONE (06:00)
[2020-11-16] MEDS: NICOTINE POLACRILEX 2 MG GUM BUC PRN ×2 (06:23→08:44)
[2020-11-16 08:47] VITALS: BP 126/73; PULSE 68; TEMP 97.1
[2020-11-16] MEDS: NICOTINE 14 MG/24 HOURS TOPICAL PATCH TD SCH (09:24)
[2020-11-16] MEDS: PRENATAL VITAMINS W/ FOLIC ACID TABLET (FP) PO SCH (09:24)
== END 2020-11-16 11:53 | disposition other institution (70) | DRG 774 ==
LOC: YASAS 19:36 → Y3N 21:25
PROVIDERS: ADMIT Allergy & Immunology; ATTEND Allergy & Immunology
PROC: HZ2ZZZZ Detoxification Services for Substance Abuse Treatment (ICD-10-PCS; principal; 2020-11-12)
DX: F10.230 Alcohol dependence with withdrawal, uncomplicated (principal); F14.20 Cocaine dependence, uncomplicated; F12.20 Cannabis dependence, uncomplicated; F17.210 Nicotine dependence, cigarettes, uncomplicated; F19.282 Other psychoactive substance dependence with psychoactive substance-induced sleep disorder; F19.280 Other psychoactive substance dependence with psychoactive substance-induced anxiety disorder; F19.24 Other psychoactive substance dependence with psychoactive substance-induced mood disorder; F32.9 Major depressive disorder, single episode, unspecified; G47.00 Insomnia, unspecified; I10 Essential (primary) hypertension; M54.5 Low back pain; G89.29 Other chronic pain; R73.9 Hyperglycemia, unspecified; Z87.19 Personal history of other diseases of the digestive system; Z56.0 Unemployment, unspecified; Z59.0 Homelessness
CPT/HCPCS: 36415; 80053; 82947; 83036; 85027; 86780; C9803; U0003; U0005

== ENCOUNTER 2020-11-16 11:14 | Inpatient (IN) | payer OTHER ==
[2020-11-16] MEDS ORDERED: guaiFENesin 200 MG/10 ML 10 ML UNIT-DOSE CUPS PO PRN (14:50)
[2020-11-16] MEDS ORDERED: ACETAMINOPHEN 325 MG TABLET (FP) PO PRN (14:50)
[2020-11-16] MEDS ORDERED: IBUPROFEN 400 MG TABLET (FP) PO PRN (14:50)
[2020-11-16] MEDS ORDERED: LOPERAMIDE HCL 2 MG CAPSULE PO PRN (14:50)
[2020-11-16] MEDS ORDERED: P-EPHED 60MG/TRIPROLIDI 2.5MG TABLET PO PRN (14:50)
[2020-11-16] MEDS ORDERED: MAGNESIUM CITRATE 300 ML BOTTLE PO PRN (14:50)
[2020-11-16] MEDS ORDERED: MENTHOL/PHENOL 1 EACH UD MM PRN (14:50)
[2020-11-16] MEDS ORDERED: MAGNESIUM HYDROX 2400MG/30ML ORAL SUSPENSION 30 ML CUP PO PRN (14:50)
[2020-11-16] MEDS: NICOTINE POLACRILEX 2 MG GUM BUC PRN ×3 (16:33→21:13)
[2020-11-16] MEDS: THIAMINE HCL 100 MG TABLET (FP) PO SCH (21:02)
[2020-11-16] MEDS: hydrOXYzine PAMOATE 25 MG CAPSULE (FP) PO PRN (21:02)
[2020-11-16] MEDS ORDERED: MELATONIN 5 MG TABLETS PO SCH (22:00)
[2020-11-17] MEDS: NICOTINE POLACRILEX 2 MG GUM BUC PRN ×2 (07:34→09:57)
[2020-11-17] MEDS: PRENATAL VITAMINS W/ FOLIC ACID TABLET (FP) PO SCH (09:57)
[2020-11-17] MEDS ORDERED: NICOTINE 7 MG/24 HOURS TOPICAL PATCH TD SCH ×2 (10:00→11:57)
[2020-11-17] MEDS: NICOTINE POLACRILEX 4 MG GUM BUC PRN ×5 (12:33→22:14)
[2020-11-17] MEDS: THIAMINE HCL 100 MG TABLET (FP) PO SCH (21:49)
[2020-11-17] MEDS: hydrOXYzine PAMOATE 25 MG CAPSULE (FP) PO PRN (21:49)
[2020-11-17] MEDS: MIRTAZAPINE 15 MG TABLET (FP) PO SCH (21:49)
[2020-11-18] MEDS: NICOTINE POLACRILEX 4 MG GUM BUC PRN ×5 (06:16→22:19)
[2020-11-18] MEDS: PRENATAL VITAMINS W/ FOLIC ACID TABLET (FP) PO SCH ×2 (09:55→10:37)
[2020-11-18] MEDS: NICOTINE 21 MG/24 HOURS TOPICAL PATCH TD SCH ×2 (09:55→10:37)
[2020-11-18] MEDS: THIAMINE HCL 100 MG TABLET (FP) PO SCH (21:11)
[2020-11-18] MEDS: MIRTAZAPINE 15 MG TABLET (FP) PO SCH (21:11)
[2020-11-19] MEDS: NICOTINE POLACRILEX 4 MG GUM BUC PRN ×4 (06:11→21:30)
[2020-11-19] MEDS: NICOTINE 21 MG/24 HOURS TOPICAL PATCH TD SCH (10:21)
[2020-11-19] MEDS: PRENATAL VITAMINS W/ FOLIC ACID TABLET (FP) PO SCH (10:21)
[2020-11-19] MEDS: hydrOXYzine PAMOATE 25 MG CAPSULE (FP) PO PRN ×2 (10:21→21:30)
[2020-11-19] MEDS: MIRTAZAPINE 15 MG TABLET (FP) PO SCH (21:30)
[2020-11-19] MEDS: THIAMINE HCL 100 MG TABLET (FP) PO SCH (21:30)
[2020-11-19] MEDS: MAG HYDROX/AL HYDROX/SIMETH 30 ML UNIT-DOSE CUP PO PRN (21:31)
[2020-11-20] MEDS: NICOTINE POLACRILEX 4 MG GUM BUC PRN ×5 (06:48→21:37)
[2020-11-20] MEDS: PRENATAL VITAMINS W/ FOLIC ACID TABLET (FP) PO SCH (09:41)
[2020-11-20] MEDS: NICOTINE 21 MG/24 HOURS TOPICAL PATCH TD SCH (09:41)
[2020-11-20] MEDS: hydrOXYzine PAMOATE 25 MG CAPSULE (FP) PO PRN ×2 (09:41→21:36)
[2020-11-20] MEDS: MAG HYDROX/AL HYDROX/SIMETH 30 ML UNIT-DOSE CUP PO PRN (09:42)
[2020-11-20] MEDS: MIRTAZAPINE 15 MG TABLET (FP) PO SCH (21:36)
[2020-11-20] MEDS: THIAMINE HCL 100 MG TABLET (FP) PO SCH (21:36)
[2020-11-21] MEDS: NICOTINE POLACRILEX 4 MG GUM BUC PRN ×5 (05:51→21:13)
[2020-11-21] MEDS: PRENATAL VITAMINS W/ FOLIC ACID TABLET (FP) PO SCH (09:56)
[2020-11-21] MEDS: NICOTINE 21 MG/24 HOURS TOPICAL PATCH TD SCH (09:56)
[2020-11-21] MEDS: MIRTAZAPINE 15 MG TABLET (FP) PO SCH (21:12)
[2020-11-21] MEDS: THIAMINE HCL 100 MG TABLET (FP) PO SCH (21:12)
[2020-11-21] MEDS: hydrOXYzine PAMOATE 25 MG CAPSULE (FP) PO PRN (21:13)
[2020-11-22] MEDS: NICOTINE POLACRILEX 4 MG GUM BUC PRN ×6 (06:33→21:36)
[2020-11-22] MEDS: NICOTINE 21 MG/24 HOURS TOPICAL PATCH TD SCH (09:27)
[2020-11-22] MEDS: PRENATAL VITAMINS W/ FOLIC ACID TABLET (FP) PO SCH (09:27)
[2020-11-22] MEDS: MAG HYDROX/AL HYDROX/SIMETH 30 ML UNIT-DOSE CUP PO PRN ×2 (09:29→21:36)
[2020-11-22] MEDS: THIAMINE HCL 100 MG TABLET (FP) PO SCH (21:35)
[2020-11-22] MEDS: MIRTAZAPINE 15 MG TABLET (FP) PO SCH (21:35)
[2020-11-23] MEDS: PRENATAL VITAMINS W/ FOLIC ACID TABLET (FP) PO SCH (09:57)
[2020-11-23] MEDS: NICOTINE 21 MG/24 HOURS TOPICAL PATCH TD SCH (09:57)
[2020-11-23] MEDS: NICOTINE POLACRILEX 4 MG GUM BUC PRN ×3 (13:12→20:17)
[2020-11-23] MEDS ORDERED: NICOTINE 21 MG/24 HOURS TOPICAL PATCH TD ONE (14:00)
[2020-11-23] MEDS: MAG HYDROX/AL HYDROX/SIMETH 30 ML UNIT-DOSE CUP PO PRN (17:07)
[2020-11-23] MEDS: MIRTAZAPINE 15 MG TABLET (FP) PO SCH (21:15)
[2020-11-23] MEDS: THIAMINE HCL 100 MG TABLET (FP) PO SCH (21:15)
[2020-11-23] MEDS: hydrOXYzine PAMOATE 25 MG CAPSULE (FP) PO PRN (21:16)
[2020-11-24] MEDS: NICOTINE POLACRILEX 4 MG GUM BUC PRN ×5 (06:37→17:41)
[2020-11-24] MEDS: PRENATAL VITAMINS W/ FOLIC ACID TABLET (FP) PO SCH (09:47)
[2020-11-24] MEDS: NICOTINE 21 MG/24 HOURS TOPICAL PATCH TD SCH (09:47)
[2020-11-24] MEDS: MIRTAZAPINE 15 MG TABLET (FP) PO SCH (21:07)
[2020-11-24] MEDS: THIAMINE HCL 100 MG TABLET (FP) PO SCH (21:07)
[2020-11-24] MEDS: hydrOXYzine PAMOATE 25 MG CAPSULE (FP) PO PRN (21:08)
[2020-11-25] MEDS: NICOTINE POLACRILEX 4 MG GUM BUC PRN ×5 (06:03→20:09)
[2020-11-25] MEDS: PRENATAL VITAMINS W/ FOLIC ACID TABLET (FP) PO SCH (09:43)
[2020-11-25] MEDS: NICOTINE 21 MG/24 HOURS TOPICAL PATCH TD SCH (09:43)
[2020-11-25] MEDS: THIAMINE HCL 100 MG TABLET (FP) PO SCH (21:43)
[2020-11-25] MEDS: MIRTAZAPINE 15 MG TABLET (FP) PO SCH (21:43)
[2020-11-25] MEDS: hydrOXYzine PAMOATE 25 MG CAPSULE (FP) PO PRN (21:44)
[2020-11-26] MEDS: NICOTINE POLACRILEX 4 MG GUM BUC PRN ×4 (05:52→20:32)
[2020-11-26] MEDS: NICOTINE 21 MG/24 HOURS TOPICAL PATCH TD SCH (10:37)
[2020-11-26] MEDS: PRENATAL VITAMINS W/ FOLIC ACID TABLET (FP) PO SCH (10:37)
[2020-11-26] MEDS: MIRTAZAPINE 15 MG TABLET (FP) PO SCH (21:18)
[2020-11-26] MEDS: THIAMINE HCL 100 MG TABLET (FP) PO SCH (21:18)
[2020-11-26] MEDS: hydrOXYzine PAMOATE 25 MG CAPSULE (FP) PO PRN (21:18)
[2020-11-27] MEDS: NICOTINE POLACRILEX 4 MG GUM BUC PRN ×5 (07:05→21:11)
[2020-11-27] MEDS: NICOTINE 21 MG/24 HOURS TOPICAL PATCH TD SCH (10:48)
[2020-11-27] MEDS: PRENATAL VITAMINS W/ FOLIC ACID TABLET (FP) PO SCH (10:48)
[2020-11-27] MEDS: hydrOXYzine PAMOATE 25 MG CAPSULE (FP) PO PRN (21:10)
[2020-11-27] MEDS: THIAMINE HCL 100 MG TABLET (FP) PO SCH (21:10)
[2020-11-27] MEDS: MIRTAZAPINE 15 MG TABLET (FP) PO SCH (21:10)
[2020-11-28] MEDS: NICOTINE POLACRILEX 4 MG GUM BUC PRN ×4 (07:14→20:00)
[2020-11-28] MEDS: PRENATAL VITAMINS W/ FOLIC ACID TABLET (FP) PO SCH (09:37)
[2020-11-28] MEDS: NICOTINE 21 MG/24 HOURS TOPICAL PATCH TD SCH (09:37)
[2020-11-28] MEDS: hydrOXYzine PAMOATE 25 MG CAPSULE (FP) PO PRN (22:06)
[2020-11-28] MEDS: THIAMINE HCL 100 MG TABLET (FP) PO SCH (22:06)
[2020-11-28] MEDS: MIRTAZAPINE 15 MG TABLET (FP) PO SCH (22:07)
[2020-11-29] MEDS: NICOTINE POLACRILEX 4 MG GUM BUC PRN ×6 (06:33→21:54)
[2020-11-29] MEDS: PRENATAL VITAMINS W/ FOLIC ACID TABLET (FP) PO SCH (10:29)
[2020-11-29] MEDS: NICOTINE 21 MG/24 HOURS TOPICAL PATCH TD SCH (10:29)
[2020-11-29] MEDS: hydrOXYzine PAMOATE 25 MG CAPSULE (FP) PO PRN (21:54)
[2020-11-29] MEDS: THIAMINE HCL 100 MG TABLET (FP) PO SCH (21:54)
[2020-11-29] MEDS: MIRTAZAPINE 15 MG TABLET (FP) PO SCH (21:54)
[2020-11-30] MEDS: NICOTINE POLACRILEX 4 MG GUM BUC PRN ×6 (06:07→21:18)
[2020-11-30] MEDS: NICOTINE 21 MG/24 HOURS TOPICAL PATCH TD SCH (10:50)
[2020-11-30] MEDS: PRENATAL VITAMINS W/ FOLIC ACID TABLET (FP) PO SCH (10:50)
[2020-11-30] MEDS: MIRTAZAPINE 15 MG TABLET (FP) PO SCH (21:17)
[2020-11-30] MEDS: hydrOXYzine PAMOATE 25 MG CAPSULE (FP) PO PRN (21:17)
[2020-11-30] MEDS: THIAMINE HCL 100 MG TABLET (FP) PO SCH (21:17)
[2020-12-01] MEDS: NICOTINE POLACRILEX 4 MG GUM BUC PRN ×5 (06:19→20:27)
[2020-12-01] MEDS: NICOTINE 21 MG/24 HOURS TOPICAL PATCH TD SCH (09:39)
[2020-12-01] MEDS: PRENATAL VITAMINS W/ FOLIC ACID TABLET (FP) PO SCH (09:39)
[2020-12-01] MEDS: THIAMINE HCL 100 MG TABLET (FP) PO SCH (21:18)
[2020-12-01] MEDS: hydrOXYzine PAMOATE 25 MG CAPSULE (FP) PO PRN (21:18)
[2020-12-01] MEDS: MIRTAZAPINE 15 MG TABLET (FP) PO SCH (21:18)
[2020-12-02] MEDS: NICOTINE POLACRILEX 4 MG GUM BUC PRN ×5 (06:24→20:07)
[2020-12-02] MEDS: NICOTINE 21 MG/24 HOURS TOPICAL PATCH TD SCH (09:48)
[2020-12-02] MEDS: PRENATAL VITAMINS W/ FOLIC ACID TABLET (FP) PO SCH (09:48)
[2020-12-02] MEDS: THIAMINE HCL 100 MG TABLET (FP) PO SCH (21:50)
[2020-12-02] MEDS: hydrOXYzine PAMOATE 25 MG CAPSULE (FP) PO PRN (21:50)
[2020-12-02] MEDS: MIRTAZAPINE 15 MG TABLET (FP) PO SCH (21:50)
[2020-12-03] MEDS: NICOTINE POLACRILEX 4 MG GUM BUC PRN ×5 (06:36→21:31)
[2020-12-03] MEDS: NICOTINE 21 MG/24 HOURS TOPICAL PATCH TD SCH (11:10)
[2020-12-03] MEDS: PRENATAL VITAMINS W/ FOLIC ACID TABLET (FP) PO SCH (11:10)
[2020-12-03] MEDS: THIAMINE HCL 100 MG TABLET (FP) PO SCH (21:29)
[2020-12-03] MEDS: MIRTAZAPINE 15 MG TABLET (FP) PO SCH (21:29)
[2020-12-03] MEDS: hydrOXYzine PAMOATE 25 MG CAPSULE (FP) PO PRN (21:30)
[2020-12-04] MEDS: NICOTINE POLACRILEX 4 MG GUM BUC PRN ×5 (06:25→21:27)
[2020-12-04] MEDS: PRENATAL VITAMINS W/ FOLIC ACID TABLET (FP) PO SCH ×2 (10:19→10:39)
[2020-12-04] MEDS: NICOTINE 21 MG/24 HOURS TOPICAL PATCH TD SCH ×2 (10:19→10:39)
[2020-12-04] MEDS ORDERED: NICOTINE 10 MG CARTRIDGE (INHALER) IH PRN (11:57)
[2020-12-04] MEDS: THIAMINE HCL 100 MG TABLET (FP) PO SCH (21:26)
[2020-12-04] MEDS: MIRTAZAPINE 15 MG TABLET (FP) PO SCH (21:27)
[2020-12-04] MEDS: hydrOXYzine PAMOATE 25 MG CAPSULE (FP) PO PRN (21:27)
[2020-12-05] MEDS: NICOTINE POLACRILEX 4 MG GUM BUC PRN ×3 (06:29→20:03)
[2020-12-05] MEDS: PRENATAL VITAMINS W/ FOLIC ACID TABLET (FP) PO SCH (10:44)
[2020-12-05] MEDS: NICOTINE 21 MG/24 HOURS TOPICAL PATCH TD SCH ×2 (10:44→11:23)
[2020-12-05] MEDS: hydrOXYzine PAMOATE 25 MG CAPSULE (FP) PO PRN (21:35)
[2020-12-05] MEDS: MIRTAZAPINE 15 MG TABLET (FP) PO SCH (21:35)
[2020-12-05] MEDS: THIAMINE HCL 100 MG TABLET (FP) PO SCH (21:35)
[2020-12-06] MEDS: PRENATAL VITAMINS W/ FOLIC ACID TABLET (FP) PO SCH (09:46)
[2020-12-06] MEDS: NICOTINE 21 MG/24 HOURS TOPICAL PATCH TD SCH (09:46)
[2020-12-06] MEDS: NICOTINE POLACRILEX 4 MG GUM BUC PRN ×3 (14:46→19:56)
[2020-12-06] MEDS: MIRTAZAPINE 15 MG TABLET (FP) PO SCH (21:24)
[2020-12-06] MEDS: hydrOXYzine PAMOATE 25 MG CAPSULE (FP) PO PRN (21:24)
[2020-12-06] MEDS: THIAMINE HCL 100 MG TABLET (FP) PO SCH (21:24)
[2020-12-07] MEDS: NICOTINE POLACRILEX 4 MG GUM BUC PRN ×6 (06:16→21:56)
[2020-12-07] MEDS: PRENATAL VITAMINS W/ FOLIC ACID TABLET (FP) PO SCH (10:10)
[2020-12-07] MEDS: NICOTINE 21 MG/24 HOURS TOPICAL PATCH TD SCH (10:10)
[2020-12-07] MEDS: MIRTAZAPINE 15 MG TABLET (FP) PO SCH (21:54)
[2020-12-07] MEDS: THIAMINE HCL 100 MG TABLET (FP) PO SCH (21:54)
[2020-12-07] MEDS: hydrOXYzine PAMOATE 25 MG CAPSULE (FP) PO PRN (21:54)
[2020-12-08] MEDS: PRENATAL VITAMINS W/ FOLIC ACID TABLET (FP) PO SCH (10:01)
[2020-12-08] MEDS: NICOTINE 21 MG/24 HOURS TOPICAL PATCH TD SCH (10:01)
[2020-12-08] MEDS: NICOTINE POLACRILEX 4 MG GUM BUC PRN ×5 (11:46→21:34)
[2020-12-08] MEDS: MIRTAZAPINE 15 MG TABLET (FP) PO SCH (21:33)
[2020-12-08] MEDS: THIAMINE HCL 100 MG TABLET (FP) PO SCH (21:33)
[2020-12-08] MEDS: hydrOXYzine PAMOATE 25 MG CAPSULE (FP) PO PRN (21:33)
[2020-12-09] MEDS: NICOTINE POLACRILEX 4 MG GUM BUC PRN ×5 (06:26→21:13)
[2020-12-09] MEDS: NICOTINE 21 MG/24 HOURS TOPICAL PATCH TD SCH (09:49)
[2020-12-09] MEDS: PRENATAL VITAMINS W/ FOLIC ACID TABLET (FP) PO SCH (09:50)
[2020-12-09] MEDS: THIAMINE HCL 100 MG TABLET (FP) PO SCH (21:11)
[2020-12-09] MEDS: MIRTAZAPINE 15 MG TABLET (FP) PO SCH (21:12)
[2020-12-09] MEDS: hydrOXYzine PAMOATE 25 MG CAPSULE (FP) PO PRN (21:12)
[2020-12-10] MEDS: NICOTINE POLACRILEX 4 MG GUM BUC PRN ×5 (07:51→22:03)
[2020-12-10] MEDS: PRENATAL VITAMINS W/ FOLIC ACID TABLET (FP) PO SCH (10:56)
[2020-12-10] MEDS: NICOTINE 21 MG/24 HOURS TOPICAL PATCH TD SCH (10:56)
[2020-12-10] MEDS: hydrOXYzine PAMOATE 25 MG CAPSULE (FP) PO PRN (21:10)
[2020-12-10] MEDS: THIAMINE HCL 100 MG TABLET (FP) PO SCH (21:10)
[2020-12-10] MEDS: MIRTAZAPINE 15 MG TABLET (FP) PO SCH (21:10)
[2020-12-11] MEDS: NICOTINE POLACRILEX 4 MG GUM BUC PRN ×4 (06:21→21:11)
[2020-12-11 06:57] VITALS: TEMP 97.9
[2020-12-11] MEDS: NICOTINE 21 MG/24 HOURS TOPICAL PATCH TD SCH (10:32)
[2020-12-11] MEDS: PRENATAL VITAMINS W/ FOLIC ACID TABLET (FP) PO SCH (10:32)
[2020-12-11] MEDS: MIRTAZAPINE 15 MG TABLET (FP) PO SCH (21:10)
[2020-12-11] MEDS: THIAMINE HCL 100 MG TABLET (FP) PO SCH (21:11)
[2020-12-11] MEDS: hydrOXYzine PAMOATE 25 MG CAPSULE (FP) PO PRN (21:11)
[2020-12-12] MEDS: NICOTINE POLACRILEX 4 MG GUM BUC PRN (06:28)
[2020-12-12 06:57] VITALS: BP 110/80; PULSE 75
[2020-12-12] MEDS: NICOTINE 21 MG/24 HOURS TOPICAL PATCH TD SCH (09:31)
[2020-12-12] MEDS: PRENATAL VITAMINS W/ FOLIC ACID TABLET (FP) PO SCH (09:31)
== END 2020-12-12 09:25 | disposition other institution (70) | DRG 772 ==
LOC: YASAS 11:14 → Y3E 11:15 → Y5N 11-17 12:14
PROVIDERS: ADMIT Allergy & Immunology; ATTEND Allergy & Immunology
PROC: HZ42ZZZ Group Counseling for Substance Abuse Treatment, Cognitive-Behavioral (ICD-10-PCS; principal; 2020-11-16)
DX: F10.20 Alcohol dependence, uncomplicated (principal); F14.20 Cocaine dependence, uncomplicated; F12.10 Cannabis abuse, uncomplicated; F17.210 Nicotine dependence, cigarettes, uncomplicated; F19.280 Other psychoactive substance dependence with psychoactive substance-induced anxiety disorder; F19.282 Other psychoactive substance dependence with psychoactive substance-induced sleep disorder; F19.24 Other psychoactive substance dependence with psychoactive substance-induced mood disorder; F32.9 Major depressive disorder, single episode, unspecified; G47.00 Insomnia, unspecified; I10 Essential (primary) hypertension; M54.5 Low back pain; G89.29 Other chronic pain
CPT/HCPCS: C9803; U0003; U0005

== ENCOUNTER 2021-05-26 16:23 | Inpatient (IN) | payer OTHER ==
[2021-05-26] MEDS ORDERED: MAGNESIUM HYDROX 2400MG/30ML ORAL SUSPENSION 30 ML CUP PO PRN (22:44)
[2021-05-26] MEDS ORDERED: MAGNESIUM CITRATE 300 ML BOTTLE PO PRN (22:44)
[2021-05-26] MEDS ORDERED: MAG HYDROX/AL HYDROX/SIMETH 30 ML UNIT-DOSE CUP PO PRN (22:44)
[2021-05-26] MEDS ORDERED: ACETAMINOPHEN 325 MG TABLET (FP) PO PRN ×2 (22:44)
[2021-05-26] MEDS ORDERED: NICOTINE 10 MG CARTRIDGE (INHALER) IH PRN (22:44)
[2021-05-26] MEDS ORDERED: MENTHOL/PHENOL 1 EACH UD MM PRN (22:44)
[2021-05-26] MEDS ORDERED: BISMUTH SUBSALICYLATE 524 MG/30 ML PO PRN (22:44)
[2021-05-26] MEDS ORDERED: ONDANSETRON *ODT* 4 MG TABLET SL PRN (22:44)
[2021-05-26] MEDS ORDERED: IBUPROFEN 400 MG TABLET (FP) PO PRN (22:44)
[2021-05-26 23:43] VITALS: BMI 22.1
[2021-05-27] MEDS: diazePAM 5 MG TABLET PO PRN (00:54)
[2021-05-27] MEDS: diazePAM 5 MG TABLET PO SCH ×4 (06:25→22:46)
[2021-05-27] MEDS: NICOTINE 21 MG/24 HOURS TOPICAL PATCH TD SCH (11:08)
[2021-05-27] MEDS: PRENATAL VITAMINS W/ FOLIC ACID TABLET (FP) PO SCH (11:08)
[2021-05-27] MEDS: hydrOXYzine PAMOATE 25 MG CAPSULE (FP) PO PRN ×2 (17:45→22:45)
[2021-05-27] MEDS: METHOCARBAMOL 500 MG TABLET PO PRN (22:45)
[2021-05-27] MEDS: MELATONIN 5 MG TABLETS PO SCH (22:46)
[2021-05-27] MEDS: THIAMINE HCL 100 MG TABLET (FP) PO SCH (23:32)
[2021-05-28] MEDS: diazePAM 5 MG TABLET PO SCH ×3 (05:17→22:18)
[2021-05-28] MEDS: PRENATAL VITAMINS W/ FOLIC ACID TABLET (FP) PO SCH (10:22)
[2021-05-28] MEDS: diazePAM 5 MG TABLET PO PRN ×2 (10:22→19:03)
[2021-05-28] MEDS: NICOTINE 21 MG/24 HOURS TOPICAL PATCH TD SCH (10:22)
[2021-05-28 12:07] LABS: HEMATOCRIT 42.5 % (35.4-49); HEMOGLOBIN 14.5 GM/dL (11.7-16.9); MCH 30.4 pg (25.7-33.7); MCHC 34.1 g/dl (32.0-35.9); MEAN CELL VOLUME 89.4 fl (80-96); MEAN PLT VOLUME 8.5 fl (7.5-11.1); PLATELET COUNT 249 10^3/uL (134-434); RBC 4.75 M/mm3 (4.00-5.60); RDW 14.2 % (11.9-15.9); WHITE BLOOD COUNT 7.7 K/mm3 (4.0-10.0)
[2021-05-28 12:11] LABS: CALCIUM 8.7 mg/dL (8.5-10.1)
[2021-05-28 12:12] LABS: ALBUMIN 3.3 g/dl (3.4-5.0); BLOOD UREA NITROGEN 10.7 mg/dL (7-18)
[2021-05-28 12:15] LABS: CREATININE 0.9 mg/dL (0.55-1.3)
[2021-05-28 12:16] LABS: BILIRUBIN,TOTAL 0.7 mg/dL (0.2-1); TOT PROT 6.3 g/dl (6.4-8.2)
[2021-05-28] MEDS: MELATONIN 5 MG TABLETS PO SCH (22:19)
[2021-05-28] MEDS: THIAMINE HCL 100 MG TABLET (FP) PO SCH (22:19)
[2021-05-29] MEDS: diazePAM 5 MG TABLET PO SCH ×2 (05:21→17:30)
[2021-05-29] MEDS: PRENATAL VITAMINS W/ FOLIC ACID TABLET (FP) PO SCH (10:29)
[2021-05-29] MEDS: diazePAM 5 MG TABLET PO PRN ×2 (10:35→22:34)
[2021-05-29] MEDS: METHOCARBAMOL 500 MG TABLET PO PRN (10:36)
[2021-05-29] MEDS: hydrOXYzine PAMOATE 25 MG CAPSULE (FP) PO PRN (10:36)
[2021-05-29] MEDS: NICOTINE POLACRILEX 2 MG GUM BUC PRN ×2 (10:43→17:33)
[2021-05-29] MEDS: MELATONIN 5 MG TABLETS PO SCH (22:34)
[2021-05-29] MEDS: THIAMINE HCL 100 MG TABLET (FP) PO SCH (22:34)
[2021-05-30] MEDS ORDERED: diazePAM 5 MG TABLET PO ONE (06:00)
[2021-05-30] MEDS: PRENATAL VITAMINS W/ FOLIC ACID TABLET (FP) PO SCH (11:01)
[2021-05-30] MEDS ORDERED: NICOTINE 21 MG/24 HOURS TOPICAL PATCH TD SCH (11:15)
[2021-05-30 17:10] VITALS: BP 120/81; PULSE 106; TEMP 98
[2021-05-30] MEDS: NICOTINE POLACRILEX 2 MG GUM BUC PRN (17:31)
== END 2021-05-30 17:32 | disposition other institution (70) | DRG 774 ==
LOC: YASAS 16:23 → Y3N 23:13
PROVIDERS: ADMIT Allergy & Immunology; ATTEND Allergy & Immunology
PROC: HZ2ZZZZ Detoxification Services for Substance Abuse Treatment (ICD-10-PCS; principal; 2021-05-26)
DX: F10.230 Alcohol dependence with withdrawal, uncomplicated (principal); F14.20 Cocaine dependence, uncomplicated; F17.210 Nicotine dependence, cigarettes, uncomplicated; F19.280 Other psychoactive substance dependence with psychoactive substance-induced anxiety disorder; F19.282 Other psychoactive substance dependence with psychoactive substance-induced sleep disorder; F19.24 Other psychoactive substance dependence with psychoactive substance-induced mood disorder; E46 Unspecified protein-calorie malnutrition; Z68.22 Body mass index [BMI] 22.0-22.9, adult; G47.00 Insomnia, unspecified; I10 Essential (primary) hypertension; M54.50 Low back pain, unspecified; G89.29 Other chronic pain; Z59.01 Sheltered homelessness; Z56.0 Unemployment, unspecified
CPT/HCPCS: 36415; 80053; 85027; 86780; 93005; 93010; C9803; U0003; U0005

== ENCOUNTER 2021-05-30 17:43 | Inpatient (IN) | payer OTHER ==
[2021-05-30] MEDS ORDERED: P-EPHED 60MG/TRIPROLIDI 2.5MG TABLET PO PRN (18:13)
[2021-05-30] MEDS ORDERED: ACETAMINOPHEN 325 MG TABLET (FP) PO PRN (18:13)
[2021-05-30] MEDS ORDERED: MENTHOL/PHENOL 1 EACH UD MM PRN (18:13)
[2021-05-30] MEDS ORDERED: LOPERAMIDE HCL 2 MG CAPSULE PO PRN (18:13)
[2021-05-30] MEDS ORDERED: MAGNESIUM HYDROX 2400MG/30ML ORAL SUSPENSION 30 ML CUP PO PRN (18:13)
[2021-05-30] MEDS ORDERED: guaiFENesin 200 MG/10 ML 10 ML UNIT-DOSE CUPS PO PRN (18:13)
[2021-05-30] MEDS ORDERED: MAGNESIUM CITRATE 300 ML BOTTLE PO PRN (18:13)
[2021-05-30] MEDS: THIAMINE HCL 100 MG TABLET (FP) PO SCH (21:10)
[2021-05-30] MEDS: MELATONIN 5 MG TABLETS PO PRN (21:10)
[2021-05-31] MEDS: NICOTINE POLACRILEX 2 MG GUM BUC PRN ×4 (09:37→21:37)
[2021-05-31] MEDS: PRENATAL VITAMINS W/ FOLIC ACID TABLET (FP) PO SCH (09:38)
[2021-05-31] MEDS: NICOTINE 21 MG/24 HOURS TOPICAL PATCH TD SCH (10:30)
[2021-05-31] MEDS: NICOTINE 10 MG CARTRIDGE (INHALER) IH SCH (10:30)
[2021-05-31] MEDS: MELATONIN 5 MG TABLETS PO PRN (21:22)
[2021-05-31] MEDS: THIAMINE HCL 100 MG TABLET (FP) PO SCH (21:22)
[2021-06-01] MEDS: NICOTINE POLACRILEX 2 MG GUM BUC PRN ×3 (00:25→19:36)
[2021-06-01] MEDS: NICOTINE 21 MG/24 HOURS TOPICAL PATCH TD SCH (11:01)
[2021-06-01] MEDS: PRENATAL VITAMINS W/ FOLIC ACID TABLET (FP) PO SCH (11:01)
[2021-06-01] MEDS: NICOTINE 10 MG CARTRIDGE (INHALER) IH SCH (11:01)
[2021-06-01] MEDS: NICOTINE 10 MG CARTRIDGE (INHALER) IH PRN (13:13)
[2021-06-01] MEDS: THIAMINE HCL 100 MG TABLET (FP) PO SCH (21:27)
[2021-06-01] MEDS: SUVOREXANT 10 MG TABLET PO PRN (21:31)
[2021-06-02] MEDS: PRENATAL VITAMINS W/ FOLIC ACID TABLET (FP) PO SCH (10:16)
[2021-06-02] MEDS: NICOTINE 21 MG/24 HOURS TOPICAL PATCH TD SCH (10:16)
[2021-06-02] MEDS: NICOTINE POLACRILEX 2 MG GUM BUC PRN ×2 (13:25→17:47)
[2021-06-02] MEDS: THIAMINE HCL 100 MG TABLET (FP) PO SCH (21:33)
[2021-06-02] MEDS: SUVOREXANT 10 MG TABLET PO PRN (21:33)
[2021-06-03] MEDS: PRENATAL VITAMINS W/ FOLIC ACID TABLET (FP) PO SCH ×2 (10:29→10:34)
[2021-06-03] MEDS: NICOTINE 21 MG/24 HOURS TOPICAL PATCH TD SCH ×2 (10:29→10:34)
[2021-06-03] MEDS: NICOTINE POLACRILEX 2 MG GUM BUC PRN ×4 (10:35→21:51)
[2021-06-03] MEDS: NICOTINE 10 MG CARTRIDGE (INHALER) IH PRN (14:14)
[2021-06-03] MEDS: SUVOREXANT 10 MG TABLET PO PRN (21:50)
[2021-06-03] MEDS: THIAMINE HCL 100 MG TABLET (FP) PO SCH (21:51)
[2021-06-04] MEDS: NICOTINE 21 MG/24 HOURS TOPICAL PATCH TD SCH (10:25)
[2021-06-04] MEDS: PRENATAL VITAMINS W/ FOLIC ACID TABLET (FP) PO SCH (10:25)
[2021-06-04] MEDS: NICOTINE POLACRILEX 2 MG GUM BUC PRN ×4 (11:50→21:21)
[2021-06-04] MEDS: THIAMINE HCL 100 MG TABLET (FP) PO SCH (21:20)
[2021-06-05] MEDS: PRENATAL VITAMINS W/ FOLIC ACID TABLET (FP) PO SCH (09:43)
[2021-06-05] MEDS: NICOTINE 21 MG/24 HOURS TOPICAL PATCH TD SCH (09:43)
[2021-06-05] MEDS: NICOTINE POLACRILEX 2 MG GUM BUC PRN ×2 (14:34→21:34)
[2021-06-05] MEDS: SUVOREXANT 10 MG TABLET PO PRN (21:32)
[2021-06-05] MEDS: THIAMINE HCL 100 MG TABLET (FP) PO SCH (21:33)
[2021-06-05] MEDS: NICOTINE 10 MG CARTRIDGE (INHALER) IH PRN (21:34)
[2021-06-06] MEDS: NICOTINE POLACRILEX 2 MG GUM BUC PRN ×5 (07:04→21:59)
[2021-06-06] MEDS: PRENATAL VITAMINS W/ FOLIC ACID TABLET (FP) PO SCH (10:14)
[2021-06-06] MEDS: NICOTINE 21 MG/24 HOURS TOPICAL PATCH TD SCH (10:15)
[2021-06-06] MEDS: SUVOREXANT 10 MG TABLET PO PRN (21:58)
[2021-06-06] MEDS: MAG HYDROX/AL HYDROX/SIMETH 30 ML UNIT-DOSE CUP PO PRN (21:58)
[2021-06-06] MEDS: THIAMINE HCL 100 MG TABLET (FP) PO SCH (21:58)
[2021-06-07] MEDS: NICOTINE POLACRILEX 2 MG GUM BUC PRN ×6 (06:09→22:27)
[2021-06-07] MEDS: PRENATAL VITAMINS W/ FOLIC ACID TABLET (FP) PO SCH (10:07)
[2021-06-07] MEDS: NICOTINE 21 MG/24 HOURS TOPICAL PATCH TD SCH (10:07)
[2021-06-07] MEDS: THIAMINE HCL 100 MG TABLET (FP) PO SCH (21:39)
[2021-06-07] MEDS: SUVOREXANT 10 MG TABLET PO PRN (21:40)
[2021-06-07] MEDS: MAG HYDROX/AL HYDROX/SIMETH 30 ML UNIT-DOSE CUP PO PRN (22:26)
[2021-06-08] MEDS: NICOTINE POLACRILEX 2 MG GUM BUC PRN ×5 (08:23→21:34)
[2021-06-08] MEDS: NICOTINE 21 MG/24 HOURS TOPICAL PATCH TD SCH (10:42)
[2021-06-08] MEDS: PRENATAL VITAMINS W/ FOLIC ACID TABLET (FP) PO SCH (10:42)
[2021-06-08] MEDS: SUVOREXANT 10 MG TABLET PO PRN (21:32)
[2021-06-08] MEDS: THIAMINE HCL 100 MG TABLET (FP) PO SCH (21:32)
[2021-06-09] MEDS: PRENATAL VITAMINS W/ FOLIC ACID TABLET (FP) PO SCH (10:09)
[2021-06-09] MEDS: NICOTINE POLACRILEX 2 MG GUM BUC PRN ×5 (10:10→21:25)
[2021-06-09] MEDS: NICOTINE 21 MG/24 HOURS TOPICAL PATCH TD SCH (10:10)
[2021-06-09] MEDS: THIAMINE HCL 100 MG TABLET (FP) PO SCH (21:25)
[2021-06-09] MEDS: SUVOREXANT 10 MG TABLET PO PRN (21:27)
[2021-06-09] MEDS: IBUPROFEN 400 MG TABLET (FP) PO PRN (22:30)
[2021-06-10] MEDS: NICOTINE POLACRILEX 2 MG GUM BUC PRN ×3 (01:17→21:49)
[2021-06-10] MEDS: PRENATAL VITAMINS W/ FOLIC ACID TABLET (FP) PO SCH (11:29)
[2021-06-10] MEDS: NICOTINE 21 MG/24 HOURS TOPICAL PATCH TD SCH (11:29)
[2021-06-10] MEDS: THIAMINE HCL 100 MG TABLET (FP) PO SCH (21:48)
[2021-06-10] MEDS: SUVOREXANT 10 MG TABLET PO PRN (21:48)
[2021-06-11] MEDS: NICOTINE POLACRILEX 2 MG GUM BUC PRN ×6 (06:05→21:50)
[2021-06-11] MEDS: IBUPROFEN 400 MG TABLET (FP) PO PRN (08:41)
[2021-06-11] MEDS: PRENATAL VITAMINS W/ FOLIC ACID TABLET (FP) PO SCH (10:24)
[2021-06-11] MEDS: NICOTINE 21 MG/24 HOURS TOPICAL PATCH TD SCH (10:25)
[2021-06-11] MEDS: THIAMINE HCL 100 MG TABLET (FP) PO SCH (21:49)
[2021-06-11] MEDS: SUVOREXANT 10 MG TABLET PO PRN (21:49)
[2021-06-12] MEDS: NICOTINE POLACRILEX 2 MG GUM BUC PRN ×5 (08:52→21:49)
[2021-06-12] MEDS: PRENATAL VITAMINS W/ FOLIC ACID TABLET (FP) PO SCH (10:11)
[2021-06-12] MEDS: NICOTINE 21 MG/24 HOURS TOPICAL PATCH TD SCH (10:11)
[2021-06-12] MEDS: THIAMINE HCL 100 MG TABLET (FP) PO SCH (21:49)
[2021-06-12] MEDS ORDERED: MELATONIN 5 MG TABLETS PO ONE (22:23)
[2021-06-12] MEDS ORDERED: hydrOXYzine PAMOATE 25 MG CAPSULE (FP) PO ONE (22:24)
[2021-06-13] MEDS: IBUPROFEN 400 MG TABLET (FP) PO PRN ×2 (06:35→19:16)
[2021-06-13] MEDS: NICOTINE POLACRILEX 2 MG GUM BUC PRN ×7 (06:36→21:18)
[2021-06-13] MEDS: PRENATAL VITAMINS W/ FOLIC ACID TABLET (FP) PO SCH (09:48)
[2021-06-13] MEDS: NICOTINE 21 MG/24 HOURS TOPICAL PATCH TD SCH (09:49)
[2021-06-13] MEDS ORDERED: hydrOXYzine PAMOATE 25 MG CAPSULE (FP) PO PRN (20:59)
[2021-06-13] MEDS ORDERED: MELATONIN 5 MG TABLETS PO PRN (20:59)
[2021-06-13] MEDS: THIAMINE HCL 100 MG TABLET (FP) PO SCH (21:18)
[2021-06-14 07:13] VITALS: BP 109/73; PULSE 78; TEMP 96.7
[2021-06-14] MEDS: NICOTINE 21 MG/24 HOURS TOPICAL PATCH TD SCH ×2 (09:05→09:11)
[2021-06-14] MEDS: PRENATAL VITAMINS W/ FOLIC ACID TABLET (FP) PO SCH (09:05)
== END 2021-06-14 09:30 | disposition home or self-care (01) | DRG 772 ==
LOC: YASAS 17:43 → Y3W 17:44 → Y3E 05-31 22:07 → Y5N 06-01 12:44
PROVIDERS: ADMIT Allergy & Immunology; ATTEND Allergy & Immunology
PROC: HZ42ZZZ Group Counseling for Substance Abuse Treatment, Cognitive-Behavioral (ICD-10-PCS; principal; 2021-05-30)
DX: F10.20 Alcohol dependence, uncomplicated (principal); F14.20 Cocaine dependence, uncomplicated; F12.20 Cannabis dependence, uncomplicated; F17.210 Nicotine dependence, cigarettes, uncomplicated; F19.24 Other psychoactive substance dependence with psychoactive substance-induced mood disorder; F32.A Depression, unspecified; G47.00 Insomnia, unspecified; I10 Essential (primary) hypertension; M54.50 Low back pain, unspecified; G89.29 Other chronic pain; Z56.0 Unemployment, unspecified; Z59.01 Sheltered homelessness
CPT/HCPCS: C9803; U0003; U0005

== ENCOUNTER 2022-07-28 18:49 | Inpatient (IN) | payer OTHER ==
[2022-07-28 21:52] VITALS: BMI 24.3
[2022-07-28] MEDS ORDERED: BISMUTH SUBSALICYLATE 524 MG/30 ML PO PRN (22:30)
[2022-07-28] MEDS ORDERED: ACETAMINOPHEN 325 MG TABLET (FP) PO PRN (22:30)
[2022-07-28] MEDS ORDERED: LOPERAMIDE HCL 2 MG CAPSULE PO PRN (22:30)
[2022-07-28] MEDS ORDERED: NALOXONE HCL 0.4 MG/ML VIAL IM PRN (22:30)
[2022-07-28] MEDS ORDERED: MAGNESIUM HYDROX 2400MG/30ML ORAL SUSPENSION 30 ML CUP PO PRN (22:30)
[2022-07-28] MEDS ORDERED: IBUPROFEN 600 MG TABLET (FP) PO PRN (22:30)
[2022-07-28] MEDS ORDERED: DICYCLOMINE HCL 10 MG CAPSULE PO PRN (22:30)
[2022-07-28] MEDS ORDERED: MAG HYDROX/AL HYDROX/SIMETH 30 ML UNIT-DOSE CUP PO PRN (22:30)
[2022-07-28] MEDS ORDERED: POLYETHYLENE GLYCOL (HEALTHYLAX) 3350 17 GM PACKET PO PRN (22:30)
[2022-07-28] MEDS ORDERED: ONDANSETRON *ODT* 4 MG TABLET SL PRN (22:30)
[2022-07-28] MEDS ORDERED: BENZOCAINE/MENTHOL (CHLORASEPTIC ) LOZENGE MM PRN (22:30)
[2022-07-28] MEDS ORDERED: guaiFENesin 600 MG TABLET.ER (FP) PO PRN (22:30)
[2022-07-28] MEDS ORDERED: NICOTINE POLACRILEX 2 MG GUM BUC PRN (22:30)
[2022-07-28] MEDS ORDERED: NALOXONE HCL (KLOXXADO) 8 MG SPRAY NS PRN (22:30)
[2022-07-28] MEDS ORDERED: IBUPROFEN 400 MG TABLET (FP) PO PRN (22:30)
[2022-07-28] MEDS ORDERED: chlordiazePOXIDE HCL 25 MG CAPSULE ONE (23:03)
[2022-07-28] MEDS ORDERED: ONDANSETRON *ODT* 4 MG TABLET ONE (23:03)
[2022-07-28] MEDS: chlordiazePOXIDE HCL 25 MG CAPSULE PO SCH (23:05)
[2022-07-29] MEDS: chlordiazePOXIDE HCL 25 MG CAPSULE PO SCH ×4 (05:24→22:13)
[2022-07-29] MEDS: NICOTINE 14 MG/24 HOURS TOPICAL PATCH TD SCH (10:48)
[2022-07-29] MEDS: PRENATAL VITAMINS W/ FOLIC ACID TABLET (FP) PO SCH (10:48)
[2022-07-29 11:47] LABS: HEMATOCRIT 39.3 % (35.4-49); HEMOGLOBIN 14.1 GM/dL (11.7-16.9); MCH 30.3 pg (25.7-33.7); MCHC 35.9 g/dl (32.0-35.9); MEAN CELL VOLUME 84.3 fl (80-96); MEAN PLT VOLUME 9.2 fl (7.5-11.1); PLATELET COUNT 251 10^3/uL (134-434); RBC 4.66 M/mm3 (4.00-5.60); RDW 13.9 % (11.9-15.9); WHITE BLOOD COUNT 7.1 K/mm3 (4.0-10.0)
[2022-07-29 12:05] LABS: ALBUMIN 3.5 g/dl (3.4-5.0); CALCIUM 8.6 mg/dL (8.5-10.1)
[2022-07-29 12:06] LABS: BLOOD UREA NITROGEN 14.5 mg/dL (7-18)
[2022-07-29 12:08] LABS: CREATININE 0.9 mg/dL (0.55-1.3)
[2022-07-29 12:10] LABS: BILIRUBIN,TOTAL 0.6 mg/dL (0.2-1); TOT PROT 6.5 g/dl (6.4-8.2)
[2022-07-29] MEDS ORDERED: MELATONIN 5 MG TABLETS PO SCH (22:00)
[2022-07-29] MEDS: NICOTINE POLACRILEX 2 MG GUM BUC PRN (22:02)
[2022-07-29] MEDS: THIAMINE HCL 100 MG TABLET (FP) PO SCH (22:13)
[2022-07-30] MEDS: chlordiazePOXIDE HCL 25 MG CAPSULE PO SCH ×4 (05:40→22:06)
[2022-07-30] MEDS: chlordiazePOXIDE HCL 25 MG CAPSULE PO PRN ×2 (05:40→11:09)
[2022-07-30] MEDS: PRENATAL VITAMINS W/ FOLIC ACID TABLET (FP) PO SCH (10:49)
[2022-07-30] MEDS: NICOTINE 14 MG/24 HOURS TOPICAL PATCH TD SCH (10:49)
[2022-07-30] MEDS: guaiFENesin 600 MG TABLET.ER (FP) PO PRN ×2 (11:10→19:39)
[2022-07-30] MEDS: NICOTINE POLACRILEX 2 MG GUM BUC PRN ×5 (11:13→23:43)
[2022-07-30] MEDS: BENZONATATE 200 MG CAPSULE PO PRN ×2 (13:51→22:05)
[2022-07-30] MEDS ORDERED: SUVOREXANT 10 MG TABLET PO PRN (22:00)
[2022-07-30] MEDS: THIAMINE HCL 100 MG TABLET (FP) PO SCH (22:05)
[2022-07-31] MEDS ORDERED: chlordiazePOXIDE HCL 10 MG CAPSULE PO PRN
[2022-07-31] MEDS: guaiFENesin 600 MG TABLET.ER (FP) PO PRN ×2 (00:55→08:33)
[2022-07-31] MEDS: chlordiazePOXIDE HCL 10 MG CAPSULE PO SCH ×2 (05:41→10:31)
[2022-07-31] MEDS: NICOTINE POLACRILEX 2 MG GUM BUC PRN ×2 (08:34→11:59)
[2022-07-31 09:39] VITALS: RESP 18
[2022-07-31] MEDS ORDERED: LORATADINE 10 MG TABLET PO SCH (10:00)
[2022-07-31] MEDS: NICOTINE 14 MG/24 HOURS TOPICAL PATCH TD SCH (10:31)
[2022-07-31] MEDS: PRENATAL VITAMINS W/ FOLIC ACID TABLET (FP) PO SCH (10:31)
[2022-07-31 13:05] VITALS: BP 131/75; PULSE 100; TEMP 98.4
[2022-08-01] MEDS ORDERED: chlordiazePOXIDE HCL 10 MG CAPSULE PO SCH (05:00)
[2022-08-02] MEDS ORDERED: chlordiazePOXIDE HCL 10 MG CAPSULE PO ONE (05:00)
== END 2022-07-31 14:16 | disposition other institution (70) | DRG 774 ==
LOC: YASAS 18:49 → Y6N 22:45
PROVIDERS: ADMIT Allergy & Immunology; ATTEND Surgery
PROC: HZ2ZZZZ Detoxification Services for Substance Abuse Treatment (ICD-10-PCS; principal; 2022-07-28)
DX: F10.230 Alcohol dependence with withdrawal, uncomplicated (principal); F14.20 Cocaine dependence, uncomplicated; F12.20 Cannabis dependence, uncomplicated; F17.210 Nicotine dependence, cigarettes, uncomplicated; F19.282 Other psychoactive substance dependence with psychoactive substance-induced sleep disorder; I10 Essential (primary) hypertension; K21.9 Gastro-esophageal reflux disease without esophagitis; M54.50 Low back pain, unspecified; G89.29 Other chronic pain; R63.8 Other symptoms and signs concerning food and fluid intake
CPT/HCPCS: 26055; 36415; 80053; 85027; 86780; 93005; 93010; C9803-CS; Q0162; U0003; U0005

== ENCOUNTER 2022-07-31 14:25 | Inpatient (IN) | payer OTHER ==
[2022-07-31] MEDS ORDERED: NALOXONE HCL (KLOXXADO) 8 MG SPRAY NS PRN (14:41)
[2022-07-31] MEDS ORDERED: IBUPROFEN 600 MG TABLET (FP) PO PRN (14:41)
[2022-07-31] MEDS ORDERED: NALOXONE HCL 0.4 MG/ML VIAL IVPUSH PRN (14:41)
[2022-07-31] MEDS ORDERED: MAG HYDROX/AL HYDROX/SIMETH 30 ML UNIT-DOSE CUP PO PRN (14:41)
[2022-07-31] MEDS ORDERED: BENZOCAINE/MENTHOL (CHLORASEPTIC ) LOZENGE MM PRN (14:41)
[2022-07-31] MEDS ORDERED: IBUPROFEN 400 MG TABLET (FP) PO PRN (14:41)
[2022-07-31] MEDS ORDERED: ACETAMINOPHEN 325 MG TABLET (FP) PO PRN (14:41)
[2022-07-31] MEDS ORDERED: guaiFENesin 600 MG TABLET.ER (FP) PO PRN (14:41)
[2022-07-31] MEDS ORDERED: BENZONATATE 200 MG CAPSULE PO PRN (14:41)
[2022-07-31] MEDS ORDERED: METHOCARBAMOL 500 MG TABLET PO PRN (14:41)
[2022-07-31] MEDS ORDERED: LOPERAMIDE HCL 2 MG CAPSULE PO PRN (14:41)
[2022-07-31] MEDS ORDERED: MAGNESIUM HYDROX 2400MG/30ML ORAL SUSPENSION 30 ML CUP PO PRN (14:41)
[2022-07-31] MEDS ORDERED: POLYETHYLENE GLYCOL (HEALTHYLAX) 3350 17 GM PACKET PO PRN (14:41)
[2022-07-31] MEDS: NICOTINE 10 MG CARTRIDGE (INHALER) IH PRN (15:04)
[2022-07-31] MEDS: NICOTINE POLACRILEX 4 MG GUM BUC PRN ×3 (17:34→22:49)
[2022-07-31] MEDS: QUEtiapine FUMARATE 50 MG TABLET PO SCH (21:14)
[2022-07-31] MEDS: SUVOREXANT 10 MG TABLET PO PRN (21:14)
[2022-07-31] MEDS: THIAMINE HCL 100 MG TABLET (FP) PO SCH (21:14)
[2022-07-31] MEDS: MELATONIN 5 MG TABLETS PO SCH (21:15)
[2022-08-01] MEDS: NICOTINE POLACRILEX 4 MG GUM BUC PRN ×4 (06:55→19:56)
[2022-08-01] MEDS: PRENATAL VITAMINS W/ FOLIC ACID TABLET (FP) PO SCH ×2 (09:58→11:55)
[2022-08-01] MEDS: LORATADINE 10 MG TABLET PO SCH (09:58)
[2022-08-01] MEDS: NICOTINE 10 MG CARTRIDGE (INHALER) IH PRN (15:06)
[2022-08-01] MEDS: THIAMINE HCL 100 MG TABLET (FP) PO SCH (21:27)
[2022-08-01] MEDS: QUEtiapine FUMARATE 50 MG TABLET PO SCH (21:27)
[2022-08-01] MEDS: SUVOREXANT 10 MG TABLET PO PRN (21:28)
[2022-08-01] MEDS: MELATONIN 5 MG TABLETS PO SCH (21:29)
[2022-08-02] MEDS: NICOTINE POLACRILEX 4 MG GUM BUC PRN ×5 (07:16→20:03)
[2022-08-02] MEDS: LORATADINE 10 MG TABLET PO SCH (10:09)
[2022-08-02] MEDS: PRENATAL VITAMINS W/ FOLIC ACID TABLET (FP) PO SCH (10:09)
[2022-08-02] MEDS: MELATONIN 5 MG TABLETS PO SCH (21:10)
[2022-08-02] MEDS: QUEtiapine FUMARATE 50 MG TABLET PO SCH (21:10)
[2022-08-02] MEDS: THIAMINE HCL 100 MG TABLET (FP) PO SCH (21:10)
[2022-08-02] MEDS: SUVOREXANT 10 MG TABLET PO PRN (21:13)
[2022-08-03] MEDS: NICOTINE POLACRILEX 4 MG GUM BUC PRN ×5 (07:20→20:27)
[2022-08-03] MEDS: PRENATAL VITAMINS W/ FOLIC ACID TABLET (FP) PO SCH (10:04)
[2022-08-03] MEDS: LORATADINE 10 MG TABLET PO SCH (10:04)
[2022-08-03] MEDS: MELATONIN 5 MG TABLETS PO SCH (21:15)
[2022-08-03] MEDS: SUVOREXANT 10 MG TABLET PO PRN (21:15)
[2022-08-03] MEDS: QUEtiapine FUMARATE 50 MG TABLET PO SCH (21:16)
[2022-08-03] MEDS: THIAMINE HCL 100 MG TABLET (FP) PO SCH (21:16)
[2022-08-04] MEDS: NICOTINE POLACRILEX 4 MG GUM BUC PRN ×4 (09:18→21:16)
[2022-08-04] MEDS: LORATADINE 10 MG TABLET PO SCH (09:43)
[2022-08-04] MEDS: PRENATAL VITAMINS W/ FOLIC ACID TABLET (FP) PO SCH (09:43)
[2022-08-04] MEDS: MELATONIN 5 MG TABLETS PO SCH (21:16)
[2022-08-04] MEDS: THIAMINE HCL 100 MG TABLET (FP) PO SCH (21:16)
[2022-08-04] MEDS: QUEtiapine FUMARATE 50 MG TABLET PO SCH (21:16)
[2022-08-05] MEDS: NICOTINE POLACRILEX 4 MG GUM BUC PRN ×3 (06:23→21:30)
[2022-08-05] MEDS: PRENATAL VITAMINS W/ FOLIC ACID TABLET (FP) PO SCH (09:40)
[2022-08-05] MEDS: LORATADINE 10 MG TABLET PO SCH (09:40)
[2022-08-05] MEDS: THIAMINE HCL 100 MG TABLET (FP) PO SCH (21:29)
[2022-08-05] MEDS: QUEtiapine FUMARATE 50 MG TABLET PO SCH (21:29)
[2022-08-05] MEDS: MELATONIN 5 MG TABLETS PO SCH (21:30)
[2022-08-05] MEDS: SUVOREXANT 10 MG TABLET PO PRN (21:30)
[2022-08-06] MEDS: NICOTINE POLACRILEX 4 MG GUM BUC PRN ×6 (07:55→21:24)
[2022-08-06] MEDS: PRENATAL VITAMINS W/ FOLIC ACID TABLET (FP) PO SCH (10:11)
[2022-08-06] MEDS: LORATADINE 10 MG TABLET PO SCH (10:12)
[2022-08-06] MEDS: NICOTINE 14 MG/24 HOURS TOPICAL PATCH TD SCH (13:32)
[2022-08-06] MEDS: QUEtiapine FUMARATE 50 MG TABLET PO SCH (21:23)
[2022-08-06] MEDS: MELATONIN 5 MG TABLETS PO SCH (21:23)
[2022-08-06] MEDS: THIAMINE HCL 100 MG TABLET (FP) PO SCH (21:23)
[2022-08-07] MEDS: NICOTINE POLACRILEX 4 MG GUM BUC PRN ×6 (07:33→19:15)
[2022-08-07] MEDS: LORATADINE 10 MG TABLET PO SCH (10:05)
[2022-08-07] MEDS: PRENATAL VITAMINS W/ FOLIC ACID TABLET (FP) PO SCH (10:05)
[2022-08-07] MEDS: NICOTINE 14 MG/24 HOURS TOPICAL PATCH TD SCH (10:05)
[2022-08-07] MEDS ORDERED: NICOTINE 14 MG/24 HOURS TOPICAL PATCH TD SCH (11:32)
[2022-08-07] MEDS: MELATONIN 5 MG TABLETS PO SCH (21:12)
[2022-08-07] MEDS: hydrOXYzine PAMOATE 25 MG CAPSULE (FP) PO PRN (21:12)
[2022-08-07] MEDS: QUEtiapine FUMARATE 50 MG TABLET PO SCH (21:12)
[2022-08-07] MEDS: THIAMINE HCL 100 MG TABLET (FP) PO SCH (21:12)
[2022-08-08 07:10] VITALS: RESP 18
[2022-08-08] MEDS: NICOTINE POLACRILEX 4 MG GUM BUC PRN ×5 (07:59→19:45)
[2022-08-08] MEDS: PRENATAL VITAMINS W/ FOLIC ACID TABLET (FP) PO SCH (09:49)
[2022-08-08] MEDS: LORATADINE 10 MG TABLET PO SCH (09:50)
[2022-08-08] MEDS: NICOTINE 21 MG/24 HOURS TOPICAL PATCH TD SCH (09:50)
[2022-08-08] MEDS: THIAMINE HCL 100 MG TABLET (FP) PO SCH (21:22)
[2022-08-08] MEDS: MELATONIN 5 MG TABLETS PO SCH (21:22)
[2022-08-08] MEDS: QUEtiapine FUMARATE 50 MG TABLET PO SCH (21:22)
[2022-08-08] MEDS: SUVOREXANT 10 MG TABLET PO PRN (21:23)
[2022-08-09] MEDS: NICOTINE POLACRILEX 4 MG GUM BUC PRN ×6 (07:31→19:20)
[2022-08-09] MEDS: NICOTINE 21 MG/24 HOURS TOPICAL PATCH TD SCH (09:35)
[2022-08-09] MEDS: LORATADINE 10 MG TABLET PO SCH (09:35)
[2022-08-09] MEDS: PRENATAL VITAMINS W/ FOLIC ACID TABLET (FP) PO SCH (09:35)
[2022-08-09] MEDS: THIAMINE HCL 100 MG TABLET (FP) PO SCH (21:05)
[2022-08-09] MEDS: QUEtiapine FUMARATE 50 MG TABLET PO SCH (21:05)
[2022-08-09] MEDS: MELATONIN 5 MG TABLETS PO SCH (21:05)
[2022-08-10] MEDS: NICOTINE POLACRILEX 4 MG GUM BUC PRN ×7 (06:46→22:39)
[2022-08-10] MEDS: NICOTINE 21 MG/24 HOURS TOPICAL PATCH TD SCH (09:48)
[2022-08-10] MEDS: LORATADINE 10 MG TABLET PO SCH (09:48)
[2022-08-10] MEDS: PRENATAL VITAMINS W/ FOLIC ACID TABLET (FP) PO SCH (09:48)
[2022-08-10] MEDS: MELATONIN 5 MG TABLETS PO SCH (21:07)
[2022-08-10] MEDS: QUEtiapine FUMARATE 50 MG TABLET PO SCH (21:07)
[2022-08-10] MEDS: THIAMINE HCL 100 MG TABLET (FP) PO SCH (21:07)
[2022-08-10] MEDS: SUVOREXANT 10 MG TABLET PO PRN (21:07)
[2022-08-11] MEDS: NICOTINE POLACRILEX 4 MG GUM BUC PRN ×6 (06:59→20:56)
[2022-08-11] MEDS: NICOTINE 21 MG/24 HOURS TOPICAL PATCH TD SCH (09:46)
[2022-08-11] MEDS: PRENATAL VITAMINS W/ FOLIC ACID TABLET (FP) PO SCH (09:47)
[2022-08-11] MEDS: LORATADINE 10 MG TABLET PO SCH (09:47)
[2022-08-11] MEDS: THIAMINE HCL 100 MG TABLET (FP) PO SCH (21:24)
[2022-08-11] MEDS: MELATONIN 5 MG TABLETS PO SCH (21:24)
[2022-08-11] MEDS: QUEtiapine FUMARATE 50 MG TABLET PO SCH (21:24)
[2022-08-12] MEDS: NICOTINE POLACRILEX 4 MG GUM BUC PRN ×7 (07:16→22:27)
[2022-08-12] MEDS: PRENATAL VITAMINS W/ FOLIC ACID TABLET (FP) PO SCH (09:51)
[2022-08-12] MEDS: NICOTINE 21 MG/24 HOURS TOPICAL PATCH TD SCH (09:51)
[2022-08-12] MEDS: LORATADINE 10 MG TABLET PO SCH (09:51)
[2022-08-12] MEDS: QUEtiapine FUMARATE 50 MG TABLET PO SCH (21:06)
[2022-08-12] MEDS: MELATONIN 5 MG TABLETS PO SCH (21:07)
[2022-08-12] MEDS: THIAMINE HCL 100 MG TABLET (FP) PO SCH (21:07)
[2022-08-13] MEDS: NICOTINE POLACRILEX 4 MG GUM BUC PRN ×6 (06:42→21:15)
[2022-08-13] MEDS: LORATADINE 10 MG TABLET PO SCH (09:57)
[2022-08-13] MEDS: PRENATAL VITAMINS W/ FOLIC ACID TABLET (FP) PO SCH (09:57)
[2022-08-13] MEDS: NICOTINE 21 MG/24 HOURS TOPICAL PATCH TD SCH (09:57)
[2022-08-13] MEDS: THIAMINE HCL 100 MG TABLET (FP) PO SCH (21:13)
[2022-08-13] MEDS: MELATONIN 5 MG TABLETS PO SCH (21:14)
[2022-08-13] MEDS: QUEtiapine FUMARATE 50 MG TABLET PO SCH (21:14)
[2022-08-13] MEDS: SUVOREXANT 10 MG TABLET PO PRN (21:14)
[2022-08-14] MEDS: NICOTINE POLACRILEX 4 MG GUM BUC PRN ×7 (00:10→20:17)
[2022-08-14] MEDS: PRENATAL VITAMINS W/ FOLIC ACID TABLET (FP) PO SCH (09:42)
[2022-08-14] MEDS: NICOTINE 21 MG/24 HOURS TOPICAL PATCH TD SCH (09:42)
[2022-08-14] MEDS: LORATADINE 10 MG TABLET PO SCH (09:43)
[2022-08-14] MEDS: MELATONIN 5 MG TABLETS PO SCH (21:15)
[2022-08-14] MEDS: hydrOXYzine PAMOATE 25 MG CAPSULE (FP) PO PRN (21:15)
[2022-08-14] MEDS: SUVOREXANT 10 MG TABLET PO PRN (21:16)
[2022-08-14] MEDS: THIAMINE HCL 100 MG TABLET (FP) PO SCH (21:16)
[2022-08-14] MEDS: QUEtiapine FUMARATE 50 MG TABLET PO SCH (21:16)
[2022-08-15] MEDS: NICOTINE POLACRILEX 4 MG GUM BUC PRN ×6 (08:45→21:17)
[2022-08-15] MEDS: NICOTINE 21 MG/24 HOURS TOPICAL PATCH TD SCH ×2 (10:55→12:11)
[2022-08-15] MEDS: PRENATAL VITAMINS W/ FOLIC ACID TABLET (FP) PO SCH (10:55)
[2022-08-15] MEDS: LORATADINE 10 MG TABLET PO SCH (10:55)
[2022-08-15] MEDS: MELATONIN 5 MG TABLETS PO SCH (21:17)
[2022-08-15] MEDS: THIAMINE HCL 100 MG TABLET (FP) PO SCH (21:17)
[2022-08-15] MEDS: QUEtiapine FUMARATE 50 MG TABLET PO SCH (21:17)
[2022-08-16] MEDS: NICOTINE POLACRILEX 4 MG GUM BUC PRN ×4 (06:43→17:40)
[2022-08-16 07:04] VITALS: BP 110/65; PULSE 85; TEMP 97.5
[2022-08-16] MEDS: LORATADINE 10 MG TABLET PO SCH (10:21)
[2022-08-16] MEDS: PRENATAL VITAMINS W/ FOLIC ACID TABLET (FP) PO SCH (10:21)
[2022-08-16] MEDS: NICOTINE 21 MG/24 HOURS TOPICAL PATCH TD SCH (12:21)
[2022-08-16] MEDS ORDERED: NICOTINE 21 MG/24 HOURS TOPICAL PATCH TD PRN (13:33)
[2022-08-16] MEDS: NICOTINE 10 MG CARTRIDGE (INHALER) IH PRN (17:01)
[2022-08-16] MEDS: MELATONIN 5 MG TABLETS PO SCH (21:39)
[2022-08-16] MEDS: QUEtiapine FUMARATE 50 MG TABLET PO SCH (21:39)
[2022-08-16] MEDS: THIAMINE HCL 100 MG TABLET (FP) PO SCH (21:40)
== END 2022-08-16 18:30 | disposition left against medical advice (07) | DRG 770 ==
LOC: YASAS 14:25 → Y5N 14:27
PROVIDERS: ADMIT Allergy & Immunology; ATTEND Psychiatry & Neurology Pain Medicine
PROC: HZ42ZZZ Group Counseling for Substance Abuse Treatment, Cognitive-Behavioral (ICD-10-PCS; principal; 2022-07-31)
DX: F10.20 Alcohol dependence, uncomplicated (principal); F14.20 Cocaine dependence, uncomplicated; F12.20 Cannabis dependence, uncomplicated; F17.210 Nicotine dependence, cigarettes, uncomplicated; G47.00 Insomnia, unspecified; M54.50 Low back pain, unspecified; G89.29 Other chronic pain; F91.8 Other conduct disorders; Z91.199 Patient's noncompliance with other medical treatment and regimen due to unspecified reason
CPT/HCPCS: 36415; 86803

== ENCOUNTER 2023-11-27 18:34 | Inpatient (IN) | payer OTHER ==
[2023-11-27 19:08] VITALS: BMI 25.2
[2023-11-27] MEDS ORDERED: NALOXONE (NARCAN) HCL 4 MG/0.1 ML SPRAY NS PRN (19:56)
[2023-11-27] MEDS ORDERED: BISMUTH SUBSALICYLATE 524 MG/30 ML PO PRN (19:56)
[2023-11-27] MEDS ORDERED: ACETAMINOPHEN 325 MG TABLET (FP) PO PRN (19:56)
[2023-11-27] MEDS ORDERED: DICYCLOMINE HCL 10 MG CAPSULE PO PRN (19:56)
[2023-11-27] MEDS ORDERED: IBUPROFEN 400 MG TABLET (FP) PO PRN (19:56)
[2023-11-27] MEDS ORDERED: MAG HYDROX/AL HYDROX/SIMETH 30 ML UNIT-DOSE CUP PO PRN (19:56)
[2023-11-27] MEDS ORDERED: NALOXONE HCL 0.4 MG/ML VIAL IM PRN (19:56)
[2023-11-27] MEDS ORDERED: guaiFENesin 600 MG TABLET.ER (FP) PO PRN (19:56)
[2023-11-27] MEDS ORDERED: MAGNESIUM HYDROX 2400MG/30ML ORAL SUSPENSION 30 ML CUP PO PRN (19:56)
[2023-11-27] MEDS ORDERED: POLYETHYLENE GLYCOL (HEALTHYLAX) 3350 17 GM PACKET PO PRN (19:56)
[2023-11-27] MEDS ORDERED: IBUPROFEN 600 MG TABLET (FP) PO PRN (19:56)
[2023-11-27] MEDS ORDERED: BENZONATATE 200 MG CAPSULE PO PRN (19:56)
[2023-11-27] MEDS ORDERED: ONDANSETRON *ODT* 4 MG TABLET SL PRN (19:56)
[2023-11-27] MEDS ORDERED: LOPERAMIDE HCL 2 MG CAPSULE PO PRN (19:56)
[2023-11-27] MEDS ORDERED: BENZOCAINE/MENTHOL (CHLORASEPTIC ) LOZENGE MM PRN (19:56)
[2023-11-27] MEDS: MELATONIN 5 MG TABLETS PO SCH (22:33)
[2023-11-27] MEDS: chlordiazePOXIDE HCL 25 MG CAPSULE PO SCH (22:33)
[2023-11-27] MEDS: THIAMINE 100 MG TABLET PO SCH (22:33)
[2023-11-27] MEDS: NICOTINE POLACRILEX 4 MG GUM BUC PRN (22:36)
[2023-11-28] MEDS: PRENATAL VITAMINS W/ FOLIC ACID TABLET (FP) PO SCH (10:12)
[2023-11-28 11:55] LABS: HEMATOCRIT 37.6 % (35.4-49); MCH 30.3 pg (25.7-33.7); MCHC 34.5 g/dl (32.0-35.9); MEAN CELL VOLUME 87.8 fl (80-96); MEAN PLT VOLUME 8.7 fl (7.5-11.1); PLATELET COUNT 244 10^3/uL (134-434); RBC 4.28 M/mm3 (4.00-5.60); RDW 14.1 % (11.9-15.9); WHITE BLOOD COUNT 8.7 K/mm3 (4.0-10.0)
[2023-11-28 11:59] LABS: CHLORIDE 106 mmol/L (98-107); POTASSIUM 3.8 mmol/L (3.5-5.1); SODIUM 140 mmol/L (136-145)
[2023-11-28 12:04] LABS: CALCIUM 8.3 mg/dL (8.5-10.1)
[2023-11-28 12:05] LABS: ALBUMIN 3.1 g/dl (3.4-5.0); ANION GAP 7 mmol/L (4-13); CO2 27 mmol/L (21-32); GLUCOSE,RANDOM 107 mg/dL (74-106)
[2023-11-28 12:06] LABS: BLOOD UREA NITROGEN 15.7 mg/dL (7-18); SGPT/ALT 26 U/L (13-61)
[2023-11-28 12:08] LABS: CREATININE 0.8 mg/dL (0.55-1.3)
[2023-11-28 12:09] LABS: SGOT/AST 20 U/L (15-37)
[2023-11-28 12:10] LABS: BILIRUBIN,TOTAL 0.3 mg/dL (0.2-1); TOT PROT 6.5 g/dl (6.4-8.2)
[2023-11-28 12:11] LABS: ALK PHOS 107 U/L (45-117)
[2023-11-28] MEDS: NICOTINE 21 MG/24 HOURS TOPICAL PATCH TD SCH (12:16)
[2023-11-28] MEDS: METHOCARBAMOL 500 MG TABLET PO PRN (22:03)
[2023-11-28] MEDS: QUEtiapine FUMARATE 100 MG TABLET (FP) PO SCH (22:03)
[2023-11-28] MEDS: hydrOXYzine PAMOATE 25 MG CAPSULE (FP) PO PRN (22:03)
[2023-11-29] MEDS: chlordiazePOXIDE HCL 25 MG CAPSULE PO SCH (05:20)
[2023-11-29] MEDS: chlordiazePOXIDE HCL 25 MG CAPSULE PO PRN (14:18)
[2023-11-30] MEDS ORDERED: chlordiazePOXIDE HCL 10 MG CAPSULE PO PRN
[2023-11-30] MEDS: chlordiazePOXIDE HCL 10 MG CAPSULE PO SCH (05:27)
[2023-12-01] MEDS: chlordiazePOXIDE HCL 10 MG CAPSULE PO SCH (07:05)
[2023-12-02] MEDS: chlordiazePOXIDE HCL 10 MG CAPSULE PO ONE (06:05)
[2023-12-03 15:28] VITALS: BP 134/93; PULSE 87; RESP 18; TEMP 97.5
== END 2023-12-03 14:31 | disposition other institution (70) | DRG 774 ==
LOC: YASAS 18:34 → Y3N 20:32
PROVIDERS: ADMIT Allergy & Immunology; ATTEND Surgery
PROC: HZ2ZZZZ Detoxification Services for Substance Abuse Treatment (ICD-10-PCS; principal; 2023-11-27)
DX: F10.230 Alcohol dependence with withdrawal, uncomplicated (principal); F14.20 Cocaine dependence, uncomplicated; F12.10 Cannabis abuse, uncomplicated; F17.210 Nicotine dependence, cigarettes, uncomplicated; F32.A Depression, unspecified; F41.9 Anxiety disorder, unspecified; F19.982 Other psychoactive substance use, unspecified with psychoactive substance-induced sleep disorder; I10 Essential (primary) hypertension; K21.9 Gastro-esophageal reflux disease without esophagitis; G47.00 Insomnia, unspecified
CPT/HCPCS: 36415; 80053; 80305; 80307; 85027; 86780; 87811; 93005; 93010

== ENCOUNTER 2023-12-03 14:40 | Inpatient (IN) | payer OTHER ==
[2023-12-03] MEDS ORDERED: guaiFENesin 600 MG TABLET.ER (FP) PO PRN (15:20)
[2023-12-03] MEDS ORDERED: POLYETHYLENE GLYCOL (HEALTHYLAX) 3350 17 GM PACKET PO PRN (15:20)
[2023-12-03] MEDS ORDERED: NALOXONE HCL 0.4 MG/ML VIAL IVPUSH PRN (15:20)
[2023-12-03] MEDS ORDERED: BENZONATATE 200 MG CAPSULE PO PRN (15:20)
[2023-12-03] MEDS ORDERED: MAGNESIUM HYDROX 2400MG/30ML ORAL SUSPENSION 30 ML CUP PO PRN (15:20)
[2023-12-03] MEDS ORDERED: LOPERAMIDE HCL 2 MG CAPSULE PO PRN (15:20)
[2023-12-03] MEDS ORDERED: NALOXONE (NARCAN) HCL 4 MG/0.1 ML SPRAY NS PRN (15:20)
[2023-12-03] MEDS: PRENATAL VITAMINS W/ FOLIC ACID TABLET (FP) PO SCH (15:46)
[2023-12-03] MEDS: NICOTINE POLACRILEX 2 MG GUM BUC PRN (17:47)
[2023-12-03] MEDS ORDERED: TUBERCULIN PPD 5 TU/0.1ML VIAL ID ONE (18:10)
[2023-12-03] MEDS: QUEtiapine FUMARATE 200 MG TABLET PO SCH (21:07)
[2023-12-03] MEDS: THIAMINE 100 MG TABLET PO SCH (21:07)
[2023-12-03] MEDS: MELATONIN 5 MG TABLETS PO SCH (21:08)
[2023-12-03] MEDS: TUBERCULIN PPD 5 TU/0.1ML VIAL ID ONE (22:22)
[2023-12-04] MEDS: NICOTINE 21 MG/24 HOURS TOPICAL PATCH TD SCH (11:00)
[2023-12-04] MEDS: IBUPROFEN 600 MG TABLET (FP) PO PRN (12:36)
[2023-12-04] MEDS: NICOTINE POLACRILEX 4 MG GUM BUC PRN (13:33)
[2023-12-05] MEDS: METHOCARBAMOL 500 MG TABLET PO PRN (10:31)
[2023-12-06] MEDS: MAG HYDROX/AL HYDROX/SIMETH 30 ML UNIT-DOSE CUP PO PRN (10:00)
[2023-12-07] MEDS: ACETAMINOPHEN 325 MG TABLET (FP) PO PRN (17:28)
[2023-12-09] MEDS: P-EPHED 60MG/TRIPROLIDI 2.5MG TABLET PO PRN (19:00)
[2023-12-19] MEDS: HYDROCORTISONE 1% TOPICAL CREAM 30 GM TUBE TP PRN (11:00)
[2023-12-19] MEDS: NICOTINE POLACRILEX 4 MG LOZENGE BC PRN (21:25)
[2023-12-20] MEDS: BENZOCAINE/MENTHOL (CHLORASEPTIC ) LOZENGE MM PRN (09:25)
[2023-12-20 11:59] LABS: PROTHROMBIN TIME (PATIENT) 11.5 SEC (9.7-13.0)
[2023-12-20] MEDS: LACTULOSE 20 GM/30 ML UDC (FOR ORAL USE ONLY) PO SCH (16:39)
[2023-12-20] MEDS: PANTOPRAZOLE 20 MG TABLET PO SCH (16:39)
[2023-12-20] MEDS: IBUPROFEN 400 MG TABLET (FP) PO PRN (16:40)
[2023-12-21 06:48] VITALS: RESP 18
[2023-12-24] MEDS: hydrOXYzine PAMOATE 25 MG CAPSULE (FP) PO PRN (10:51)
[2023-12-24] MEDS: SUVOREXANT 10 MG TABLET PO PRN (21:21)
[2023-12-25 07:15] VITALS: BP 125/78; PULSE 85; TEMP 97.2
== END 2023-12-25 10:15 | disposition home or self-care (01) | DRG 772 ==
LOC: YASAS 14:40 → Y5N 14:47
PROVIDERS: ADMIT Allergy & Immunology; ATTEND Psychiatry & Neurology Pain Medicine
PROC: HZ42ZZZ Group Counseling for Substance Abuse Treatment, Cognitive-Behavioral (ICD-10-PCS; principal; 2023-12-03)
DX: F10.20 Alcohol dependence, uncomplicated (principal); F12.20 Cannabis dependence, uncomplicated; F17.210 Nicotine dependence, cigarettes, uncomplicated; F19.282 Other psychoactive substance dependence with psychoactive substance-induced sleep disorder; F19.24 Other psychoactive substance dependence with psychoactive substance-induced mood disorder; F41.9 Anxiety disorder, unspecified; F32.A Depression, unspecified; E72.20 Disorder of urea cycle metabolism, unspecified; G47.00 Insomnia, unspecified; I10 Essential (primary) hypertension; K21.9 Gastro-esophageal reflux disease without esophagitis
CPT/HCPCS: 36415; 82140; 82652; 83735; 85610; 86803